=== PATIENT | female | born 1935 | race Caucasian/White ===

== ENCOUNTER 2020-05-03 14:15 | Outpatient (RCR) ==
[2020-05-07] MEDS ORDERED: AMLO1TAB24 PO (12:34)
[2020-05-07] MEDS ORDERED: CINA30TA4 PO (12:34)
[2020-05-07] MEDS ORDERED: COLA100C5 PO (12:34)
[2020-05-07] MEDS ORDERED: DULC10SU2 PR (12:34)
[2020-05-07] MEDS ORDERED: QUET1TAB7 PO (12:34)
[2020-05-07] MEDS ORDERED: LABE100T4 PO (12:34)
[2020-05-07] MEDS ORDERED: ENEMENE PR (12:34)
[2020-05-07] MEDS ORDERED: MILKSUS3 PO (12:34)
[2020-05-07] MEDS ORDERED: FAMO20TA PO (12:34)
[2020-05-07] MEDS ORDERED: FERR325T82 PO (12:34)
[2020-05-07] MEDS ORDERED: FOLI1TAB11 PO (12:34)
[2020-05-07] MEDS ORDERED: MAGN400T3 PO (12:34)
[2020-05-07] MEDS ORDERED: VITAD400CA PO (12:34)
[2020-05-07] MEDS ORDERED: APAP325T4 PO (12:34)
[2020-05-07] MEDS ORDERED: CYAN100050 PO (12:34)
== END 2020-05-13 ==
LOC: SKLAB3 14:15
PROVIDERS: ATTEND Internal Medicine
DX: Z20.828 Contact with and (suspected) exposure to other viral communicable diseases (principal)

== ENCOUNTER 2020-05-07 11:26 | Inpatient (IN) | payer MEDICARE, MEDICAID ==
[2020-05-07] MEDS ORDERED: NS 1,000 ML IV SCH (11:45)
[2020-05-07] MEDS ORDERED: FAMO20TA PO (12:34)
[2020-05-07] MEDS ORDERED: CINA30TA4 PO (12:34)
[2020-05-07] MEDS ORDERED: VITAD400CA PO (12:34)
[2020-05-07] MEDS ORDERED: QUET1TAB7 PO (12:34)
[2020-05-07] MEDS ORDERED: APAP325T4 PO (12:34)
[2020-05-07] MEDS ORDERED: ENEMENE PR (12:34)
[2020-05-07] MEDS ORDERED: FOLI1TAB11 PO (12:34)
[2020-05-07] MEDS ORDERED: LABE100T4 PO (12:34)
[2020-05-07] MEDS ORDERED: MAGN400T3 PO (12:34)
[2020-05-07] MEDS ORDERED: COLA100C5 PO (12:34)
[2020-05-07] MEDS ORDERED: MILKSUS3 PO (12:34)
[2020-05-07] MEDS ORDERED: FERR325T82 PO (12:34)
[2020-05-07] MEDS ORDERED: CYAN100050 PO (12:34)
[2020-05-07] MEDS ORDERED: DULC10SU2 PR (12:34)
[2020-05-07] MEDS ORDERED: AMLO1TAB24 PO (12:34)
[2020-05-07] MEDS ORDERED: MOM 30ML SUSPENSION UDC PO PRN (13:00)
[2020-05-07] MEDS ORDERED: BISACODYL 10 MG SUPP PR PRN (13:00)
[2020-05-07] MEDS ORDERED: DOCUSATE SODIUM 100MG CAPSULE PO PRN (13:00)
[2020-05-07] MEDS ORDERED: FLEET ENEMA PR PRN (13:00)
[2020-05-07 13:04] LABS: ALBUMIN 3.6 GM/DL (3.2-5.2); BILIRUBIN,DIRECT 0.2 MG/DL (0.0-0.2); BILIRUBIN,TOTAL 0.5 MG/DL (0.2-1.0); TOTAL PROTEIN 7.3 GM/DL (6.4-8.2)
--- NOTE | 2020-05-07 15:51 | HPEPDOC ---
General Date of Admission May 07, 2020 at 12:48 Date of Service: May 07, 2020 Attending Physician: KIM QUINONES MD Chief Complaint The patient is a 84-year-old female admitted with a reason for visit of Hypercalcemia. Source: RN/MD Exam Limitations: Dementia Timing/Duration: Getting worse Severity: Severe History of Present Illness 84 yo W with a recent admission at [facility] for symptomatic severe hy percalcemia with studies showing primary hyperparathyroidism that was managed with aggressive hydration, cinacalcet and per [facility] physician (Dr. Whitney, who met her once when she was admitted to the [facility] from the hospital), he presumes given her being elderly, demented and DNR/DNI, family had opted to not pursue surgical evaluation for parathyroidectomy. On discharge from [facility] her Ca had mildly improved from 15s to 11-12 and she was brought in today after routine labs showed Ca of 18.4 with ionized Ca of 9.8 and Cr 3.2. Unfortunately, we do not have much records of her prior health except a noted history of HTN, dementia and remote history of hystectomy, prior bowel resection and cholecystectomy. In the ED she was hemodynamically stable, pleasantly demented, without any pain complaints, alert to self. I attempted to contact her son on the listed number without success. Lab evaluation was notable for Ca 18.4, iCa 9.8, K 2.8, Cr 3.2, WBC 5.1, Hgb 10.8, platelets 160, Vit D25 of 48.2, PTH 1793.6. She was started on 200cc/hr normal saline and is now being admitted to medicine for hypercalcemia in the setting of a recent diagnosis of primary hyperparathyroidism. Of note, Dr. Whitney recently sent SPEPCUATEEP earlier today. Home Medications Scheduled Amlodipine Besylate (Amlodipine Besylate) 5 Mg Tablet, 5 MG PO BID, (Reported) Cinacalcet (Sensipar) 30 Mg Tablet, 30 MG PO DAILY, (Reported) Cyanocobalamin (Vitamin B-12) (Vitamin B-12) 1,000 Mcg Tablet, 1,000 MCG PO DAILY, (Reported) Famotidine (Famotidine) 20 Mg Tablet, 20 MG PO DAILY, (Reported) Ferrous Sulfate (Iron) 325 Mg Tablet, 325 MG PO DAILY, (Reported) Folic Acid (Folic Acid) 1 Mg Tablet, 1 MG PO DAILY, (Reported) Labetalol HCl (Labetalol HCl) 100 Mg Tablet, 100 MG PO Q12H, (Reported) Magnesium Oxide (Magnesium Oxide) 400 Mg Tablet, 400 MG PO BID, (Reported) Quetiapine Fumarate (Quetiapine Fumarate) 25 Mg Tablet, 25 MG PO QHS, (Reported) Vitamin D (Vitamin D3) 10 Mcg Tablet, 600 UNITS PO DAILY, (Reported) Scheduled PRN Acetaminophen (Acetaminophen) 325 Mg Tablet, 650 MG PO Q4H PRN for PAIN, (Reported) Bisacodyl (Dulcolax) 10 Mg Supp.rect, 10 MG FL DAILY PRN for CONSTIPATION, (Reported) Docusate Sodium (Colace) 100 Mg Capsule, 200 MG PO QHS PRN for CONSTIPATION, (Reported) Magnesium Hydroxide (Milk of Magnesia) 400 Mg/5 Ml Oral.susp, 10 ML PO DAILY PRN for CONSTIPATION, (Reported) Sodium Phosphate,[place]-Dibasic (Enema) 133 Ml Enema, 1 ANNA FL DAILY PRN for CONSTIPATION, (Reported) Allergies Coded Allergies: No Known Drug Allergies (Verified Allergy, Unknown, 05/07/20) Past Medical History Medical History HTN Dementia Recent diagnosis of primary hyperparathyroidism Surgical History Cholecystectomy Bowel resection Hysterectomy Family History Unable to obtain due to dementia and could not reach family Social History * Smoker: Denies Recent Travel/Sick Contacts: Denies: Recent travel, Recent sick contacts Psychosocial History: Dementia Unable to obtain due to dementia and could not reach family. Recent resident of [facility]. A-FIB/CHADSVASC A-FIB History Current/History of A-Fib/PAF?: No Current PO Anticoag Therapy: No Age/Risk Factor Scoring CHADSVASC: CHADSVASC Response (Comments) Value Age Risk Factor Age >/= 75 years old 2 Gender Risk Factor Female 1 Hx of CHF No 0 Hx of HTN Yes 1 Hx of Stroke/TIA/or VTE No 0 Hx of Diabetes No 0 Hx of Vascular Disease No 0 Total 4 Treatment Treatment ordered: NONE Reason Anticoagulant not given: Not indicated/[id number] Review of Systems Constitutional: Denies: Fever (none noted by staff) Pulmonary: Denies: Dyspnea Gastrointestinal: Denies: Vomiting, Abdominal Pain, Diarrhea Genitourinary: Denies: Hematuria Endocrine: Reports: Other Endocrine Sx (unable to obtain history due to dementia) Physical Examination General Exam: Positive: Alert (oriented to self), No Acute Distress Eye Exam: Positive: PERRLA, Conjunctiva & lids normal, EOMI; Negative: Sclera icteric ENT Exam: Negative: Mucous membr. moist/pink (dry MM) Neck Exam: Negative: JVD Chest Exam: Positive: Clear to auscultation Heart Exam: Positive: Rate Normal, Regular Rhythm, Normal S1, Normal S2; Negative: Gallops, Murmurs, Rubs Telemetry: Positive: Sinus Abdomen Exam: Positive: Normal bowel sounds, Soft; Negative: Tenderness Extremity Exam: Positive: Normal pulses; Negative: Cyanosis, Edema, Tenderness, Swelling Skin Exam: Positive: Nl turgor and temperature; Negative: Breakdown, Lesion Neuro Exam: Positive: Normal Speech, Strength at 5/5 X4 ext, Cranial Nerves 3- 12 NL Psych Exam: Negative: Oriented x 3 (oriented to self) Vital Signs Vital Signs Date Time Temp Pulse Resp B/P (MAP) Pulse Ox O2 Delivery O2 Flow Rate FiO2 05/07/20 12:41 62 97 05/07/20 12:30 132/63 (86) 05/07/20 11:35 96.9 16 Room Air Laboratory Data Labs 24H Laboratory Tests 2 05/07/20 11:48: Total Bilirubin 0.5, Direct Bilirubin 0.2, Aspartate Amino Transf (AST/SGOT) 20, Alanine Aminotransferase (ALT/SGPT) 25, Alkaline Phosphatase 101, Total Protein 7.3, Albumin 3.6, Albumin/Globulin Ratio 1.0L 05/07/20 12:09: POC Glucose (Misc Panel) 122H, POC Sodium (Misc Panel) 145, POC Potassium (Misc Panel) 2.8*L, POC Chloride (Misc Panel) 107, POC Total CO2 (Misc Panel) 33.0H, POC Blood Urea Nitrogen (Misc Panel 77H, POC Ionized Calcium (Misc Panel) 9.8H, POC Creatinine (Misc Panel) 3.2H, POC Hematocrit (Misc Panel) 30.0L 05/07/20 13:22: Coronavirus (COVID-19)(PCR) NEGATIVE Assessment/Plan 84 yo woman with a recent diagnosis of primary hyperparathyroidism, DNR/DNI and poor surgical candidate with presumed family decision to defer surgical management who returns to the hospital with severe hypercalcemia. Severe hypercalcemia i/s/o known recent diagnosis of primary hyperparathyroidectomy with GOC choice for non surgical management -Aggressive hydration, continue 200cc/hr NS -strict I/Os, may have to give diuretics as well for robust output -increase cinacalcet to 30 BID from QD -telemetry -daily ionized calcium -f/u SPEP, unlikely 2/2 myeloma given impressively elevated PTH -continue Vit D repletion Hypokalemia: -replete K, daily BMP Hypermagnesemia: -discontinue Mag Ox HTN: -continue home novarsc 5mg QD and labetalol 100mg BID Anemia: -continue home Vit B12, ferrous sulfate Dementia: -continue home seroquel LUISANA likely 2/2 dehydration and hyperCa -Aggressive hydration -monitor daily BMP -defer imaging for now DVT ppx: heparin BID Dispo: PCU for close monitoring, with telemetry. Need to speak with family/HCP, will work with PFS to establish reliable contact. Plan / VTE VTE Prophylaxis Ordered?: Yes KIM QUINONES MD May 07, 2020 15:51
[2020-05-07 16:00] VITALS: BP 159/70
[2020-05-07] MEDS ORDERED: PILL CUTTER 1 EACH XX PRN (16:00)
[2020-05-07] MEDS: NS 1,000 ML IV SCH ×3 (16:23→23:45)
[2020-05-07] MEDS: KCL 10MEQ/100ML SWI (KRUN) 10 MEQ in IV 1 EA IV SCH ×5 (16:23→23:48)
[2020-05-07 20:00] VITALS: BP 162/70
[2020-05-07] MEDS ORDERED: MAGNESIUM OXIDE 400 MG TAB (MAG-OX) PO SCH (21:00)
[2020-05-07] MEDS: HEPARIN SOD (PORCINE) 5000UNITS/ML 1ML VIAL/SYRINGE SC SCH (21:01)
[2020-05-07] MEDS: LABETALOL 100 MG TAB PO SCH (21:03)
[2020-05-07] MEDS: QUEtiapine FUMARATE 25 MG TAB PO SCH (21:03)
[2020-05-07] MEDS: amLODIPine 5 MG TAB PO SCH (21:03)
[2020-05-07] MEDS: CINACALCET 30 MG TAB (SENSIPAR) PO SCH (21:05)
--- NOTE | 2020-05-07 22:02 | ECGEPIP ---
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
[2020-05-07] MEDS ORDERED: KCL 10MEQ/100ML SWI (KRUN) 10 MEQ in IV 1 EA IV SCH (23:59)
[2020-05-08] VITALS: BP 149/65
[2020-05-08 04:00] VITALS: BP 164/74
[2020-05-08] MEDS: NS 1,000 ML IV SCH (05:34)
[2020-05-08 06:29] LABS: HEMATOCRIT 32.6 % (36.0-47.0); HEMOGLOBIN 10.7 g/dl (12.0-15.5); MEAN CORPUSCULAR HEMOGLOBIN 31.9 pg (27.0-33.0); MEAN CORPUSCULAR HGB CONC 32.8 g/dl (32.0-36.5); MEAN CORPUSCULAR VOLUME 97.3 fl (80.0-96.0); PLATELET COUNT, AUTOMATED 115 10^3/uL (150-450); RED BLOOD COUNT 3.35 10^6/uL (4.00-5.40); WHITE BLOOD COUNT 2.8 10^3/uL (4.0-10.0)
[2020-05-08 06:48] LABS: CALCIUM LEVEL 16.1 MG/DL (8.8-10.2); CREATININE FOR GFR 2.16 MG/DL (0.55-1.30); GLOMERULAR FILTRATION RATE 23.1 (>32); MAGNESIUM LEVEL 2.5 MG/DL (1.8-2.4); POTASSIUM SERUM 2.9 MEQ/L (3.5-5.1)
[2020-05-08] MEDS ORDERED: POTASSIUM CHLORIDE 10 MEQ SR TABLET PO ONE (07:00)
[2020-05-08 07:52] VITALS: BP 146/69
[2020-05-08] MEDS: KCL 10MEQ/100ML SWI (KRUN) 10 MEQ in IV 1 EA IV SCH ×3 (08:14→11:20)
[2020-05-08] MEDS ORDERED: CINACALCET 30 MG TAB (SENSIPAR) PO SCH (09:00)
[2020-05-08] MEDS: FERROUS SULFATE 325MG TAB PO SCH ×2 (09:00→10:04)
[2020-05-08] MEDS ORDERED: VITAMIN D (CHOLECALCIFEROL) 400 INTERNATIONAL UNITS TAB PO SCH (09:00)
[2020-05-08] MEDS: FOLIC ACID 1 MG TAB PO SCH (10:03)
[2020-05-08] MEDS: FAMOTIDINE 20 MG TAB PO SCH (10:04)
[2020-05-08] MEDS: LABETALOL 100 MG TAB PO SCH ×2 (10:04→20:39)
[2020-05-08] MEDS: CYANOCOBALAMIN 500 MCG TAB PO SCH (10:04)
[2020-05-08] MEDS: HEPARIN SOD (PORCINE) 5000UNITS/ML 1ML VIAL/SYRINGE SC SCH ×2 (10:05→20:41)
[2020-05-08] MEDS: amLODIPine 5 MG TAB PO SCH ×2 (10:12→20:40)
[2020-05-08] MEDS: CINACALCET 30 MG TAB (SENSIPAR) PO SCH ×2 (10:12→20:42)
[2020-05-08] MEDS: KCL 20MEQ IN 0.45NS 1000ML 1,000 ML IV SCH ×3 (10:13→23:13)
[2020-05-08 10:39] LABS: PERCENT SATURATION 24.1 % (13.2-45.0)
[2020-05-08 12:00] VITALS: BP 135/60
[2020-05-08 16:00] VITALS: BP 161/71
[2020-05-08] MEDS ORDERED: DENOSUMAB 60MG/1ML SYRINGE (PROLIA) (J0897 PER 1MG) SC ONE (16:00)
--- NOTE | 2020-05-08 18:42 | IPNPDOC ---
Text Note Date of Service The patient was seen on 05/08/20. NOTE Subjective: -No complaints at night, remains pleasantly demented, sparsely answers some questions. -Denies any pain at this time Objective Physical Examination General: NAD, oriented to self Eye: PERRLA, Conjunctiva & lids normal, EOMI, anicteric ENT: dry MM Neck: no JVD, no palpable adenopathy Chest: Clear to auscultation, scattered bibasilar crackles Heart: Rate Normal, Regular Rhythm, Normal S1, Normal S2, no m/r/g Telemetry: Sinus rhythm Abdomen: Normal bowel sounds, soft, NTND Extremities: Normal pulses, no edema, swelling or pain Skin: Nl turgor and temperature, no noted breakdown Neuro: Normal Speech, 5/5 strength X 4 ext, Cranial Nerves 3-12 NL Psych: oriented only to self, pleasantly demented Labs: iCa now 8.7 Ca 16.1 Na 154 K 2.9 Cr down to 2.16 WBC 2.8 Hgb 10.7 platelets 115 Assessment: 84 yo woman with a recent diagnosis of primary hyperparathyroidism, DNR/DNI and poor surgical candidate with presumed family decision to defer surgical management who returns to the hospital with severe hypercalcemia. Severe hypercalcemia i/s/o known recent diagnosis of primary hyperparathyroidectomy with GOC choice for non surgical management -Aggressive hydration, switch fluids to 1/2NS with 20meq KCl at 150cc/hr -strict I/Os -Continue cinacalcet at 30 BID -telemetry -daily ionized calcium -f/u SPEP, unlikely 2/2 myeloma given impressively elevated PTH -continue Vit D repletion -per my discussion with pharmacy, we decided to give some calcitonin Q12 for 48H and given 1 dose of denosumab as well. -Spoke with family, would like the option to discuss definitive treatment if possible. For now, will attempt to correct the hyperCa and electrolyte abnorm alities and monitor clinical improvement that may justify discussions about the possibility of surgical definitive treatment. Pancytopenia: not enough data available to decipher chronicity -Peripheral smear -retic count, ferritin, TIBC, LDH -check EBV, CMV, BCx -will aggressively try to reach family to discuss GOC before potential involvement of hematology for more investigation etc -covid-19 negative Hypokalemia: -replete K, daily BMP -added K to fluids Hypermagnesemia: resolved -discontinued Mag Ox HTN: -continue home novarsc 5mg QD and labetalol 100mg BID Anemia: -continue home Vit B12, ferrous sulfate Dementia: -continue home seroquel LUISANA likely 2/2 dehydration and hyperCa: improving -Aggressive hydration -monitor daily BMP -defer imaging for now -strict I/Os DVT ppx: heparin BID Dispo: PCU for close monitoring, with telemetry. Spoke with family, would like the option to discuss definitive treatment if possible. VS,Fishbone, I+O VS, Fishbone, I+O Laboratory Tests 05/08/20 05:38 Vital Signs Date Time Temp Pulse Resp B/P (MAP) Pulse Ox O2 Delivery O2 Flow Rate FiO2 05/08/20 07:52 98.1 73 18 146/69 (94) 96 Room Air I&O- Last 24 Hours up to 6 AM 05/08/20 06:00 Intake Total 3300 ml Output Total 1170 ml Balance 2130 ml KIM QUINONES MD May 08, 2020 09:08
[2020-05-08 20:00] VITALS: BP 141/67
[2020-05-08] MEDS: QUEtiapine FUMARATE 25 MG TAB PO SCH (20:40)
[2020-05-08] MEDS: CALCITONIN SALMON (MIACALCIN) 400INTERNATIONAL UNITS/2ML INJ (J0630) SQ SCH (20:41)
[2020-05-09] VITALS: BP 153/72
[2020-05-09 04:00] VITALS: BP 149/69
[2020-05-09] MEDS: KCL 20MEQ IN 0.45NS 1000ML 1,000 ML IV SCH ×4 (05:18→23:11)
[2020-05-09 05:21] LABS: CALCIUM LEVEL 14.9 MG/DL (8.8-10.2); CREATININE FOR GFR 1.8 MG/DL (0.55-1.30); GLOMERULAR FILTRATION RATE 28.5 (>32); MAGNESIUM LEVEL 1.9 MG/DL (1.8-2.4); POTASSIUM SERUM 3.2 MEQ/L (3.5-5.1)
[2020-05-09 05:29] LABS: HEMATOCRIT 30.1 % (36.0-47.0); HEMOGLOBIN 9.5 g/dl (12.0-15.5); MEAN CORPUSCULAR HEMOGLOBIN 30.5 pg (27.0-33.0); MEAN CORPUSCULAR HGB CONC 31.6 g/dl (32.0-36.5); MEAN CORPUSCULAR VOLUME 96.8 fl (80.0-96.0); PLATELET COUNT, AUTOMATED 126 10^3/uL (150-450); RED BLOOD COUNT 3.11 10^6/uL (4.00-5.40); WHITE BLOOD COUNT 2.8 10^3/uL (4.0-10.0)
[2020-05-09 08:00] VITALS: BP 156/70
[2020-05-09] MEDS: CALCITONIN SALMON (MIACALCIN) 400INTERNATIONAL UNITS/2ML INJ (J0630) SQ SCH ×2 (08:49→20:57)
[2020-05-09] MEDS: FOLIC ACID 1 MG TAB PO SCH (08:50)
[2020-05-09] MEDS: HEPARIN SOD (PORCINE) 5000UNITS/ML 1ML VIAL/SYRINGE SC SCH ×2 (08:50→20:57)
[2020-05-09] MEDS: CYANOCOBALAMIN 500 MCG TAB PO SCH (08:51)
[2020-05-09] MEDS: amLODIPine 5 MG TAB PO SCH ×2 (08:51→20:59)
[2020-05-09] MEDS: FAMOTIDINE 20 MG TAB PO SCH (08:51)
[2020-05-09] MEDS: CINACALCET 30 MG TAB (SENSIPAR) PO SCH ×2 (08:51→20:58)
[2020-05-09] MEDS: LABETALOL 100 MG TAB PO SCH ×2 (08:54→20:58)
[2020-05-09] MEDS: FERROUS SULFATE 325MG TAB PO SCH (08:54)
--- NOTE | 2020-05-09 11:28 | IPNPDOC ---
Text Note Date of Service The patient was seen on 05/09/20. NOTE Subjective: -No complaints at night, remains pleasantly demented -Denies any pain at this time -Sitting up in bed -I updated her family yesterday Objective Physical Examination General: NAD, oriented to self Eye: PERRLA, Conjunctiva & lids normal, EOMI, anicteric ENT: dry MM Neck: no JVD, no palpable adenopathy Chest: Clear to auscultation, scattered bibasilar crackles Heart: Rate Normal, Regular Rhythm, Normal S1, Normal S2, no m/r/g Telemetry: Sinus rhythm Abdomen: Normal bowel sounds, soft, NTND Extremities: Normal pulses, no edema, swelling or pain Skin: Nl turgor and temperature, no noted breakdown Neuro: Normal Speech, 5/5 strength X 4 ext, Cranial Nerves 3-12 NL Psych: oriented only to self, pleasantly demented Labs: iCa now 8.9 Ca 14.9 Na 149 K 3.2 Cr down to 1.8 WBC 2.8 Hgb 9.5 platelets 126 Assessment: 84 yo woman with a recent diagnosis of primary hyperparathyroidism, DNR/DNI and poor surgical candidate with presumed family decision to defer surgical management who returns to the hospital with severe hypercalcemia. Severe hypercalcemia i/s/o known recent diagnosis of primary hyperparathyroidectomy with GOC choice for non surgical management -Continue aggressive hydration, switch fluids to 1/2NS with 20meq KCl at 150cc/hr -strict I/Os -Continue cinacalcet at 30 BID -telemetry -daily ionized calcium -f/u SPEP, unlikely 2/2 myeloma given impressively elevated PTH -dc Vit D repletion -Day of calcitonin Q12 for 48H and given 1 dose of denosumab yesterday -Spoke with family, would like the option to discuss definitive treatment if possible. For now, will attempt to correct the hyperCa and electrolyte abnormalities and monitor clinical improvement that may justify discussions about the possibility of surgical definitive treatment. Pancytopenia: not enough data available to decipher chronicity -Peripheral smear -Ferritin 264, AOCI -f/u EBV, BCx -covid-19 negative Hypokalemia: -replete K, daily BMP -added K to fluids Hypermagnesemia: resolved -discontinued Mag Ox HTN: -continue home novarsc 5mg QD and labetalol 100mg BID Anemia: -continue home Vit B12, ferrous sulfate Dementia: -continue home seroquel LUISANA likely 2/2 dehydration and hyperCa: improving -continue aggressive hydration -monitor daily BMP -defer imaging for now -strict I/Os DVT ppx: heparin BID Dispo: PCU for close monitoring, with telemetry. Spoke with family, would like the option to discuss definitive treatment if possible. VS,Fishbone, I+O VS, Fishbone, I+O Laboratory Tests 05/09/20 04:48 Vital Signs Date Time Temp Pulse Resp B/P (MAP) Pulse Ox O2 Delivery O2 Flow Rate FiO2 05/09/20 08:54 69 156/70 05/09/20 08:00 97.5 20 95 Room Air I&O- Last 24 Hours up to 6 AM 05/09/20 06:00 Intake Total 3400 ml Output Total 3825 ml Balance -425 ml KIM QUINONES MD May 09, 2020 11:28
[2020-05-09] MEDS: KCL 10MEQ/100ML SWI (KRUN) 10 MEQ in IV 1 EA IV SCH ×4 (11:46→15:22)
[2020-05-09 12:00] VITALS: BP 152/70
[2020-05-09 16:00] VITALS: BP 139/67
[2020-05-09 20:00] VITALS: BP 138/65
[2020-05-09] MEDS: QUEtiapine FUMARATE 25 MG TAB PO SCH (20:59)
[2020-05-10] VITALS: BP 144/73
[2020-05-10 04:00] VITALS: BP 147/79
[2020-05-10] MEDS: KCL 20MEQ IN 0.45NS 1000ML 1,000 ML IV SCH (05:52)
[2020-05-10 05:57] LABS: HEMATOCRIT 30.7 % (36.0-47.0); HEMOGLOBIN 9.8 g/dl (12.0-15.5); MEAN CORPUSCULAR HEMOGLOBIN 30.5 pg (27.0-33.0); MEAN CORPUSCULAR HGB CONC 31.9 g/dl (32.0-36.5); MEAN CORPUSCULAR VOLUME 95.6 fl (80.0-96.0); PLATELET COUNT, AUTOMATED 138 10^3/uL (150-450); RED BLOOD COUNT 3.21 10^6/uL (4.00-5.40); WHITE BLOOD COUNT 3.6 10^3/uL (4.0-10.0)
[2020-05-10 06:53] LABS: CALCIUM LEVEL 13.9 MG/DL (8.8-10.2); CREATININE FOR GFR 1.71 MG/DL (0.55-1.30); GLOMERULAR FILTRATION RATE 30.3 (>32); MAGNESIUM LEVEL 1.6 MG/DL (1.8-2.4)
[2020-05-10 08:00] VITALS: BP 158/80
[2020-05-10] MEDS ORDERED: MAG SULF 1GM/100ML (MAG RUN) 1 GM in IV 1 EA IV ONE (08:15)
[2020-05-10] MEDS: FOLIC ACID 1 MG TAB PO SCH (08:56)
[2020-05-10] MEDS: CINACALCET 30 MG TAB (SENSIPAR) PO SCH ×2 (08:56→22:06)
[2020-05-10] MEDS: CYANOCOBALAMIN 500 MCG TAB PO SCH (08:56)
[2020-05-10] MEDS: amLODIPine 5 MG TAB PO SCH ×2 (08:56→21:00)
[2020-05-10] MEDS: LABETALOL 100 MG TAB PO SCH ×2 (08:56→21:00)
[2020-05-10] MEDS: FAMOTIDINE 20 MG TAB PO SCH (08:56)
[2020-05-10] MEDS: FERROUS SULFATE 325MG TAB PO SCH (08:57)
[2020-05-10] MEDS: HEPARIN SOD (PORCINE) 5000UNITS/ML 1ML VIAL/SYRINGE SC SCH ×2 (09:00→22:07)
[2020-05-10] MEDS: CALCITONIN SALMON (MIACALCIN) 400INTERNATIONAL UNITS/2ML INJ (J0630) SQ SCH (09:00)
[2020-05-10 12:00] VITALS: BP 159/77
--- NOTE | 2020-05-10 13:30 | IPNPDOC ---
Text Note Date of Service The patient was seen on 05/10/20. NOTE Subjective: -No acute complaints -Sitting up in bed Objective: Physical Examination General: NAD, oriented to self Eye: PERRLA, Conjunctiva & lids normal, EOMI, anicteric ENT: dry MM Neck: no JVD, no palpable adenopathy Chest: Clear to auscultation, scattered bibasilar crackles Heart: Rate Normal, Regular Rhythm, Normal S1, Normal S2, no m/r/g Telemetry: Sinus rhythm Abdomen: Normal bowel sounds, soft, NTND Extremities: Normal pulses, no edema, swelling or pain Skin: Nl turgor and temperature, no noted breakdown Neuro: Normal Speech, 5/5 strength X 4 ext, Cranial Nerves 3-12 NL Psych: oriented only to self, pleasantly demented Labs: iCa now 7.7 Ca 13.9 Na 145 K 4 Cr down to 1.6 WBC 3.6 Hgb 9.8 platelets 138 Assessment: 84 yo woman with a recent diagnosis of primary hyperparathyroidism, DNR/DNI and poor surgical candidate with presumed family decision to defer surgical management who returns to the hospital with severe hypercalcemia. Severe hypercalcemia i/s/o known recent diagnosis of primary hyperparathyroidectomy with GOC choice for non surgical management -Continue aggressive hydration, switch fluids to 1/2NS with 20meq KCl at 150cc/hr -strict I/Os -Continue cinacalcet at 30 BID -telemetry -daily ionized calcium -f/u SPEP, unlikely 2/2 myeloma given impressively elevated PTH -dc Vit D repletion -Day 2 of calcitonin Q12 for 48Hm, ending today 05/10, and given 1 dose of denosumab on 05/08 -Spoke with family, would like the option to discuss definitive treatment if possible. For now, will attempt to correct the hyperCa and electrolyte abnormali ties and monitor clinical improvement that may justify discussions about the possibility of surgical definitive treatment. Pancytopenia: not enough data available to decipher chronicity -Peripheral smear -Ferritin 264, AOCI -f/u EBV, BCx -covid-19 negative Hypokalemia: -replete K, daily BMP -added K to fluids Hypomagnesemia: -replete with 2g Mag sulfate HTN: -continue home novarsc 5mg QD and labetalol 100mg BID Anemia: -continue home Vit B12, ferrous sulfate Dementia: -continue home seroquel LUISANA likely 2/2 dehydration and hyperCa: improving -continue aggressive hydration -monitor daily BMP -defer imaging for now -strict I/Os DVT ppx: heparin BID Dispo: PCU for close monitoring, with telemetry. Spoke with family, would like the option to discuss definitive treatment if possible. VS,Fishbone, I+O VS, Fishbone, I+O Laboratory Tests 05/10/20 05:39 Vital Signs Date Time Temp Pulse Resp B/P (MAP) Pulse Ox O2 Delivery O2 Flow Rate FiO2 05/10/20 04:00 98.3 79 17 147/79 (101) 94 Room Air I&O- Last 24 Hours up to 6 AM 05/10/20 06:00 Intake Total 2050 ml Output Total 3025 ml Balance -975 ml KIM QUINONES MD May 10, 2020 08:04
[2020-05-10] MEDS: KCL 20MEQ IN D5/0.45NS 1000ML 1,000 ML IV SCH ×2 (14:00→22:03)
[2020-05-10 16:00] VITALS: BP 128/71
[2020-05-10 20:00] VITALS: BP 150/60
[2020-05-10] MEDS: QUEtiapine FUMARATE 25 MG TAB PO SCH (21:00)
[2020-05-11] VITALS: BP 157/74
[2020-05-11 04:00] VITALS: BP 167/79
[2020-05-11] MEDS: KCL 20MEQ IN D5/0.45NS 1000ML 1,000 ML IV SCH ×3 (04:52→18:43)
[2020-05-11 05:20] LABS: HEMATOCRIT 27.9 % (36.0-47.0); HEMOGLOBIN 9.1 g/dl (12.0-15.5); MEAN CORPUSCULAR HEMOGLOBIN 30.6 pg (27.0-33.0); MEAN CORPUSCULAR HGB CONC 32.6 g/dl (32.0-36.5); MEAN CORPUSCULAR VOLUME 93.9 fl (80.0-96.0); PLATELET COUNT, AUTOMATED 131 10^3/uL (150-450); RED BLOOD COUNT 2.97 10^6/uL (4.00-5.40); WHITE BLOOD COUNT 3.2 10^3/uL (4.0-10.0)
[2020-05-11 05:40] LABS: CALCIUM LEVEL 12.8 MG/DL (8.8-10.2); CREATININE FOR GFR 1.88 MG/DL (0.55-1.30); GLOMERULAR FILTRATION RATE 27.1 (>32); MAGNESIUM LEVEL 1.4 MG/DL (1.8-2.4); POTASSIUM SERUM 3.5 MEQ/L (3.5-5.1)
[2020-05-11 07:36] VITALS: BP 151/68
[2020-05-11] MEDS: FERROUS SULFATE 325MG TAB PO SCH (09:00)
[2020-05-11] MEDS: FOLIC ACID 1 MG TAB PO SCH (09:00)
[2020-05-11] MEDS: CYANOCOBALAMIN 500 MCG TAB PO SCH (09:00)
[2020-05-11] MEDS: HEPARIN SOD (PORCINE) 5000UNITS/ML 1ML VIAL/SYRINGE SC SCH ×2 (09:12→20:14)
[2020-05-11] MEDS: MAG SULF 1GM/100ML (MAG RUN) 1 GM in IV 1 EA IV SCH ×2 (09:13→10:20)
[2020-05-11] MEDS: FAMOTIDINE 20 MG TAB PO SCH (09:22)
[2020-05-11] MEDS: CINACALCET 30 MG TAB (SENSIPAR) PO SCH ×2 (09:22→20:12)
[2020-05-11] MEDS: LABETALOL 100 MG TAB PO SCH ×2 (09:23→20:13)
[2020-05-11] MEDS: amLODIPine 5 MG TAB PO SCH ×2 (09:23→20:13)
--- NOTE | 2020-05-11 14:01 | IPNPDOC ---
Text Note Date of Service The patient was seen on 05/11/20. NOTE Subjective: -No acute complaints -More interactive than prior, speaking full sentences and engaging in conversation this morning Objective: Physical Examination General: NAD, oriented to self Eye: PERRLA, Conjunctiva & lids normal, EOMI, anicteric ENT: dry MM Neck: no JVD, no palpable adenopathy Chest: Clear to auscultation, scattered bibasilar crackles Heart: Rate Normal, Regular Rhythm, Normal S1, Normal S2, no m/r/g Telemetry: Sinus rhythm Abdomen: Normal bowel sounds, soft, NTND Extremities: Normal pulses, no edema, swelling or pain Skin: Nl turgor and temperature, no noted breakdown Neuro: Normal Speech, 5/5 strength X 4 ext, Cranial Nerves 3-12 NL Psych: oriented only to self, pleasantly demented Labs: iCa now 7.1 Ca 12.8 Na 144 K 3.5 Cr 1.88 WBC 3.2 Hgb 9.1 platelets 131 Assessment: 84 yo woman with a recent diagnosis of primary hyperparathyroidism, DNR/DNI and poor surgical candidate with presumed family decision to defer surgical management who returns to the hospital with symptomatic severe hypercalcemia. Severe hypercalcemia i/s/o known recent diagnosis of primary hyperparathyroidectomy with GOC choice for non surgical management -Continue aggressive hydration, switch fluids to D51/2NS with 20meq KCl at 150cc/hr -strict I/Os -Continue cinacalcet at 30 BID -telemetry -daily ionized calcium -f/u SPEP, unlikely 2/2 myeloma given impressively elevated PTH -s/p 2d of calcitonin Q12 and 1 dose of denosumab on 05/08 -Spoke with family, would like the option to discuss definitive treatment if possible. For now, will attempt to correct the hyperCa and electrolyte abnormalities and monitor clinical improvement that may justify discussions ab out the possibility of surgical definitive treatment. Pancytopenia: not enough data available to decipher chronicity -Peripheral smear -Ferritin 264, AOCI -f/u EBV, BCx -covid-19 negative Hypokalemia: -replete K, daily BMP -added K to fluids Hypomagnesemia: -replete with 2g Mag sulfate and start 800mg MagOx tomorrow AM HTN: -continue home novarsc 5mg QD and labetalol 100mg BID Anemia: -continue home Vit B12, ferrous sulfate Dementia: -continue home seroquel LUISANA likely 2/2 dehydration and hyperCa: improving -continue aggressive hydration -monitor daily BMP -strict I/Os Dysphagia: -c/b inattention and no motivation to take PO -for now was cleared for pureed diet DVT ppx: heparin BID Dispo: Medsurg with telemetry. Spoke with family, would like the option to discuss definitive treatment if clinically improved. VS,Fishbone, I+O VS, Fishbone, I+O Laboratory Tests 05/11/20 05:01 Vital Signs Date Time Temp Pulse Resp B/P (MAP) Pulse Ox O2 Delivery O2 Flow Rate FiO2 05/11/20 07:36 98.2 79 18 151/68 (95) 97 Room Air I&O- Last 24 Hours up to 6 AM 05/11/20 06:00 Intake Total 1650 ml Output Total 1900 ml Balance -250 ml KIM QUINONES MD May 11, 2020 07:58
[2020-05-11 16:00] VITALS: BP 126/92
[2020-05-11 20:08] VITALS: BP 129/54
[2020-05-11] MEDS: QUEtiapine FUMARATE 25 MG TAB PO SCH (20:12)
[2020-05-11] MEDS: ACETAMINOPHEN TAB 650MG DOSE (2X325MG) PO PRN (20:12)
[2020-05-11 22:00] VITALS: BP 126/52
[2020-05-12] MEDS: KCL 20MEQ IN D5/0.45NS 1000ML 1,000 ML IV SCH ×4 (01:13→19:46)
[2020-05-12 05:47] LABS: HEMATOCRIT 27.4 % (36.0-47.0); MEAN CORPUSCULAR HEMOGLOBIN 30.8 pg (27.0-33.0); MEAN CORPUSCULAR HGB CONC 32.8 g/dl (32.0-36.5); MEAN CORPUSCULAR VOLUME 93.8 fl (80.0-96.0); PLATELET COUNT, AUTOMATED 110 10^3/uL (150-450); RED BLOOD COUNT 2.92 10^6/uL (4.00-5.40); WHITE BLOOD COUNT 2.7 10^3/uL (4.0-10.0)
[2020-05-12 06:00] VITALS: BP 137/60
[2020-05-12 06:01] LABS: CALCIUM LEVEL 12.4 MG/DL (8.8-10.2); CREATININE FOR GFR 1.82 MG/DL (0.55-1.30); GLOMERULAR FILTRATION RATE 28.2 (>32); MAGNESIUM LEVEL 1.6 MG/DL (1.8-2.4); POTASSIUM SERUM 3.2 MEQ/L (3.5-5.1)
[2020-05-12] MEDS: FAMOTIDINE 20 MG TAB PO SCH (08:05)
[2020-05-12] MEDS: CINACALCET 30 MG TAB (SENSIPAR) PO SCH ×2 (08:05→21:22)
[2020-05-12] MEDS: LABETALOL 100 MG TAB PO SCH ×2 (08:06→21:16)
[2020-05-12] MEDS: CYANOCOBALAMIN 500 MCG TAB PO SCH (08:06)
[2020-05-12] MEDS: FERROUS SULFATE 325MG TAB PO SCH (08:06)
[2020-05-12] MEDS: MAGNESIUM OXIDE 400 MG TAB (MAG-OX) PO SCH (08:06)
[2020-05-12] MEDS: HEPARIN SOD (PORCINE) 5000UNITS/ML 1ML VIAL/SYRINGE SC SCH ×2 (08:07→21:18)
[2020-05-12] MEDS: FOLIC ACID 1 MG TAB PO SCH (08:08)
[2020-05-12] MEDS: amLODIPine 5 MG TAB PO SCH ×2 (08:08→21:16)
[2020-05-12] MEDS: POTASSIUM CHLORIDE 10 MEQ SR TABLET PO SCH (08:56)
--- NOTE | 2020-05-12 10:25 | IPNPDOC ---
Text Note Date of Service The patient was seen on 05/12/20. NOTE Subjective: -No acute complaints -No complaints this morning. Poor appetite Objective: Physical Examination General: NAD, oriented to self Eye: PERRLA, Conjunctiva & lids normal, EOMI, anicteric ENT: dry MM Neck: no JVD, no palpable adenopathy Chest: Clear to auscultation, scattered bibasilar crackles Heart: Rate Normal, Regular Rhythm, Normal S1, Normal S2, no m/r/g Telemetry: Sinus rhythm Abdomen: Normal bowel sounds, soft, NTND Extremities: Normal pulses, no edema, swelling or pain Skin: Nl turgor and temperature, no noted breakdown Neuro: Normal Speech, 5/5 strength X 4 ext, Cranial Nerves 3-12 NL Psych: oriented only to self, pleasantly demented Labs: iCa now 6.8 Ca 12.4 Na 141 K 3.2 Cr 1.82 WBC 2.7 Hgb 9 platelets 110 Assessment: 84 yo woman with a recent diagnosis of primary hyperparathyroidism, DNR/DNI and poor surgical candidate with presumed family decision to defer surgical management who returns to the hospital with symptomatic severe hypercalcemia. Severe hypercalcemia i/s/o known recent diagnosis of primary hyperparathyroidectomy with GOC choice for non surgical management -Continue aggressive hydration, switch fluids to D51/2NS with 20meq KCl at 150cc/hr -strict I/Os -Continue cinacalcet at 30 BID -telemetry -daily ionized calcium -f/u SPEP, unlikely 2/2 myeloma given impressively elevated PTH -s/p 2d of calcitonin Q12 and 1 dose of denosumab on 05/08 -Spoke with family, would like the option to discuss definitive treatment if possible. For now, will attempt to correct the hyperCa and electrolyte abnormalities and monitor clinical improvement that may justify discussions about the possibility of surgical definitive treatment. Pancytopenia: not enough data available to decipher chronicity -Peripheral smear -Ferritin 264, AOCI -f/u EBV, BCx -covid-19 negative Hypokalemia: -replete K, daily BMP -added K to fluids Hypomagnesemia: -replete with 2g Mag sulfate and start 800mg MagOx tomorrow AM HTN: -continue home novarsc 5mg QD and labetalol 100mg BID Anemia: -continue home Vit B12, ferrous sulfate Dementia: -continue home seroquel LUISANA likely 2/2 dehydration and hyperCa: improving -continue aggressive hydration -monitor daily BMP -strict I/Os Dysphagia: -c/b inattention and no motivation to take PO -for now was cleared for pureed diet DVT ppx: heparin BID Dispo: Medsurg with telemetry. Spoke with family, would like the option to discuss definitive treatment if clinically improved. VS,Fishbone, I+O VS, Fishbone, I+O Laboratory Tests 05/12/20 05:23 05/12/20 05:24 Vital Signs Date Time Temp Pulse Resp B/P (MAP) Pulse Ox O2 Delivery O2 Flow Rate FiO2 05/12/20 08:08 66 134/63 05/12/20 06:00 97.6 18 94 05/11/20 16:00 Room Air l I&O- Last 24 Hours up to 6 AM 05/12/20 06:00 Intake Total 3460 ml Output Total 2550 ml Balance 910 ml KIM QUINONES MD May 12, 2020 08:25
[2020-05-12 20:00] VITALS: BP 133/66
[2020-05-12] MEDS: QUEtiapine FUMARATE 25 MG TAB PO SCH (21:16)
[2020-05-12] MEDS: ACETAMINOPHEN TAB 650MG DOSE (2X325MG) PO PRN (21:17)
[2020-05-12 22:00] VITALS: BP 133/55
[2020-05-13] MEDS: KCL 20MEQ IN D5/0.45NS 1000ML 1,000 ML IV SCH ×3 (02:51→18:30)
[2020-05-13 06:00] VITALS: BP 122/49
[2020-05-13] MEDS: FERROUS SULFATE 325MG TAB PO SCH (09:59)
[2020-05-13] MEDS: MAGNESIUM OXIDE 400 MG TAB (MAG-OX) PO SCH (09:59)
[2020-05-13] MEDS: HEPARIN SOD (PORCINE) 5000UNITS/ML 1ML VIAL/SYRINGE SC SCH ×2 (10:00→20:27)
[2020-05-13] MEDS: FOLIC ACID 1 MG TAB PO SCH (10:00)
[2020-05-13] MEDS: CYANOCOBALAMIN 500 MCG TAB PO SCH (10:00)
[2020-05-13] MEDS: FAMOTIDINE 20 MG TAB PO SCH (10:00)
[2020-05-13] MEDS: POTASSIUM CHLORIDE 10 MEQ SR TABLET PO SCH (10:00)
[2020-05-13] MEDS: CINACALCET 30 MG TAB (SENSIPAR) PO SCH ×2 (10:08→20:25)
[2020-05-13] MEDS: LABETALOL 100 MG TAB PO SCH ×2 (10:09→20:26)
[2020-05-13] MEDS: amLODIPine 5 MG TAB PO SCH ×2 (10:09→20:25)
--- NOTE | 2020-05-13 13:21 | IPNPDOC ---
Text Note Date of Service The patient was seen on 05/13/20. NOTE Subjective: -No acute complaints -No complaints this morning. -Now advanced to pureed diet Objective: Physical Examination General: NAD, oriented to self Eye: PERRLA, Conjunctiva & lids normal, EOMI, anicteric ENT: dry MM Neck: no JVD, no palpable adenopathy Chest: Clear to auscultation, bibasilar crackles, breathing comfortably on room air Heart: Rate Normal, Regular Rhythm, Normal S1, Normal S2, no m/r/g Telemetry: Sinus rhythm Abdomen: Normal bowel sounds, soft, NTND Extremities: Normal pulses, no edema, swelling or pain Skin: Nl turgor and temperature, no noted breakdown Neuro: Normal Speech, 5/5 strength X 4 ext, Cranial Nerves 3-12 NL Psych: oriented only to self, pleasantly demented Labs: reviewed, pending labs Assessment: 84 yo woman with a recent diagnosis of primary hyperparathyroidism who was admitted to the hospital with symptomatic severe hypercalcemia. Severe hypercalcemia i/s/o known recent diagnosis of primary hyperparathyroidectomy with GOC choice for non surgical management -Continue hydration, with fluids of D51/2NS with 20meq KCl at 75cc/hr -strict I/Os -Continue cinacalcet at 30 BID -telemetry -daily ionized calcium -f/u SPEP, unlikely 2/2 myeloma given impressively elevated PTH -s/p 2d of calcitonin Q12 and 1 dose of denosumab on 05/08 -Initially got the report that family wanted minimal interventions and then on speaking with family, they expressed that they would like the option to discuss definitive treatment if possible. My efforts thus far have been correct the hyperCa and electrolyte abnormalities and monitor clinical improvement that may justify discussions about the possibility of surgical definitive treatment at which point I would call a consult to endocrine vs. ENT. Pancytopenia: not enough data available to decipher chronicity -Peripheral smear -Ferritin 264, AOCI -f/u EBV, BCx -covid-19 negative Hypokalemia: -replete K, daily BMP -added K to fluids Hypomagnesemia: -Mag sulfate 800mg BID HTN: -continue home novarsc 5mg QD and labetalol 100mg BID Anemia: -continue home Vit B12, ferrous sulfate Dementia: -continue home seroquel LUISANA likely 2/2 dehydration and hyperCa: improving -continue aggressive hydration -monitor daily BMP -strict I/Os Dysphagia: -c/b inattention and no motivation to take PO -for now was cleared for pureed diet DVT ppx: heparin BID Dispo: Medsurg with telemetry. Spoke with family, would like the option to discuss definitive treatment if clinically improved. VS,Fishbone, I+O VS, Fishbone, I+O Vital Signs Date Time Temp Pulse Resp B/P (MAP) Pulse Ox O2 Delivery O2 Flow Rate FiO2 05/13/20 10:09 80 129/55 05/13/20 06:00 98.0 18 95 05/11/20 16:00 Room Air I&O- Last 24 Hours up to 6 AM 05/13/20 06:00 Intake Total 2160 ml Output Total 2350 ml Balance -190 ml KIM QUINONES MD May 13, 2020 13:21
[2020-05-13 14:00] VITALS: BP 120/63
[2020-05-13 14:25] LABS: HEMOGLOBIN 8.8 g/dl (12.0-15.5); MEAN CORPUSCULAR HEMOGLOBIN 30.9 pg (27.0-33.0); MEAN CORPUSCULAR HGB CONC 32.6 g/dl (32.0-36.5); MEAN CORPUSCULAR VOLUME 94.7 fl (80.0-96.0); RED BLOOD COUNT 2.85 10^6/uL (4.00-5.40); WHITE BLOOD COUNT 3.1 10^3/uL (4.0-10.0)
[2020-05-13 15:01] LABS: CALCIUM LEVEL 10.6 MG/DL (8.8-10.2); CREATININE FOR GFR 1.56 MG/DL (0.55-1.30); GLOMERULAR FILTRATION RATE 33.7 (>32); POTASSIUM SERUM 4.1 MEQ/L (3.5-5.1)
[2020-05-13] MEDS: QUEtiapine FUMARATE 25 MG TAB PO SCH (20:25)
[2020-05-13] MEDS: ACETAMINOPHEN TAB 650MG DOSE (2X325MG) PO PRN (20:26)
[2020-05-13 22:00] VITALS: BP 105/56
[2020-05-14 06:00] VITALS: BP 126/66
[2020-05-14 06:31] LABS: HEMATOCRIT 27.2 % (36.0-47.0); HEMOGLOBIN 9.1 g/dl (12.0-15.5); MEAN CORPUSCULAR HEMOGLOBIN 31.4 pg (27.0-33.0); MEAN CORPUSCULAR HGB CONC 33.5 g/dl (32.0-36.5); MEAN CORPUSCULAR VOLUME 93.8 fl (80.0-96.0); PLATELET COUNT, AUTOMATED 130 10^3/uL (150-450); WHITE BLOOD COUNT 2.8 10^3/uL (4.0-10.0)
[2020-05-14] MEDS: KCL 20MEQ IN D5/0.45NS 1000ML 1,000 ML IV SCH (06:54)
[2020-05-14 06:56] LABS: CALCIUM LEVEL 10.2 MG/DL (8.8-10.2); CREATININE FOR GFR 1.53 MG/DL (0.55-1.30); GLOMERULAR FILTRATION RATE 34.4 (>32); MAGNESIUM LEVEL 1.4 MG/DL (1.8-2.4); POTASSIUM SERUM 4.2 MEQ/L (3.5-5.1)
[2020-05-14] MEDS ORDERED: MAG SULF 1GM/100ML (MAG RUN) 1 GM in IV 1 EA IV ONE (08:45)
[2020-05-14] MEDS: amLODIPine 5 MG TAB PO SCH ×2 (09:00→20:39)
[2020-05-14] MEDS: LABETALOL 100 MG TAB PO SCH ×2 (09:00→20:40)
[2020-05-14] MEDS: FAMOTIDINE 20 MG TAB PO SCH (10:02)
[2020-05-14] MEDS: POTASSIUM CHLORIDE 10 MEQ SR TABLET PO SCH (10:04)
[2020-05-14] MEDS: FERROUS SULFATE 325MG TAB PO SCH (10:05)
[2020-05-14] MEDS: CYANOCOBALAMIN 500 MCG TAB PO SCH (10:05)
[2020-05-14] MEDS: MAGNESIUM OXIDE 400 MG TAB (MAG-OX) PO SCH ×2 (10:05→20:40)
[2020-05-14] MEDS: FOLIC ACID 1 MG TAB PO SCH (10:06)
[2020-05-14] MEDS: HEPARIN SOD (PORCINE) 5000UNITS/ML 1ML VIAL/SYRINGE SC SCH ×2 (10:06→20:43)
[2020-05-14] MEDS: CINACALCET 30 MG TAB (SENSIPAR) PO SCH ×2 (10:08→20:40)
[2020-05-14 14:00] VITALS: BP 110/56
--- NOTE | 2020-05-14 18:21 | IPNPDOC ---
Date Seen The patient was seen on 05/14/20. Progress Note SUBJECTIVE: No acute complaints, tolerating pureed diet well. Discussed case with Dr. Jaramillo (endocrinology) who said patient is not likely surgical candidate for parathyroidectomy and has responded to treatment well. Suggested encouraging PO intake, possibly more with lemon (acidifies urine) and overall medical/ conservative management. Magnesium low, incr to BID supplement. D/alcon IVFs, encouraging Po intake to prepare for discharge. Patient denies chest pain, shortness of breath, n/v/d. OBJECTIVE: PHYSICAL EXAM: VS: please see below General: NAD, pleasantly confused, oriented to self Eye: PERRLA, Conjunctiva & lids normal, EOMI, anicteric ENT: dry MM Neck: no JVD, no palpable adenopathy Chest: Clear to auscultation, bibasilar crackles, breathing comfortably on room air Heart: Rate Normal, Regular Rhythm, Normal S1, Normal S2, no m/r/g Telemetry: Sinus rhythm Abdomen: Normal bowel sounds, soft, NTND Extremities: Normal pulses, no edema, swelling or pain Skin: Nl turgor and temperature, no noted breakdown Neuro: Normal Speech, 5/5 strength X 4 ext, Cranial Nerves 3-12 NL Psych: oriented only to self, pleasantly demented LABORATORY: please see below ASSESSMENT : 84 yo woman with a recent diagnosis of primary hyperparathyroidism who was admitted to the hospital with symptomatic severe hypercalcemia. PLAN: #Severe hypercalcemia likely 2/2 to secondary, tertiary hyperparathyroidism. -Calcium decreasing with calcitonin, denosumab (05/08) -Per Dr. Jaramillo (endocrinology), patient not likely surgical candidate. Recommending continuing with current treatment of calcitonin BID, acidification of urine if possible with encouraging hydration and adding lemon (teas, water). She said that if calcium should increase again, can consider IV bisphosphonate pamidronate depending on kidney function. -Stopped IVFs and starting on Q2H fluid encouragement, hydrate as much as po ssible -C/w cinacalcet at 30 BID, daily calcium, electrolyte replacement. #Pancytopenia -Perpherial smear: pancytopenia without any features of atypia -Ferritin 264, AOCI -f/u EBV, BCx NG -covid-19 negative #Hypomagnesemia -Low at 1.4 -Given 1 mag run today, increased mag sulfate to 800mg BID # LUISANA likely 2/2 dehydration and hyperCa- improving slowly -encouraging fluid hydrating, eating -monitor daily BMP -strict I/Os #Dysphagia in setting of dementia -c/b inattention and no motivation to take PO -for now was cleared for pureed diet -Barium swallow not needed #HTN -C/w novarsc 5mg QD and labetalol 100mg BID #Anemia, chronic -C/w Vit B12, ferrous sulfate #Dementia -At baseline -C/w seroquel #DVT px -heparin Resolved issues: #Hypokalemia DISPOSITION: Plan is d/c back to prior living situation when medically improved. VS, I&O, 24H, Fishbone Vital Signs/I&O Vital Signs Date Time Temp Pulse Resp B/P (MAP) Pulse Ox O2 Delivery O2 Flow Rate FiO2 05/14/20 14:00 97.6 70 17 110/56 (74) 94 Room Air I&O- Last 24 Hours up to 6 AM 05/14/20 05:59 Intake Total 1695 ml Output Total 2300 ml Balance -605 ml Laboratory Data 24H LABS Laboratory Tests 2 05/14/20 06:11: Nucleated Red Blood Cells % (auto) 0.0, Anion Gap 2L, Glomerular Filtration Rate 34.4, Calcium Level 10.2, Whole Blood Ionized Calcium 5.7H, Magnesium Level 1.4L CBC/BMP Laboratory Tests 05/14/20 06:11 Microbiology Microbiology 05/08/20 Blood Culture - Final, Complete NO GROWTH AFTER 5 DAYS 05/08/20 Blood Culture - Final, Complete NO GROWTH AFTER 5 DAYS Current Medications Current Medications Medications (Trade) Dose Ordered Sig/Florian Route PRN Reason Start Time Stop Time Status Last Admin Dose Admin Acetaminophen (Tylenol Tab) 650 mg Q4H PRN PO PAIN 05/07/20 13:00 05/13/20 20:26 Amlodipine Besylate (Norvasc) 5 mg BID PO 05/07/20 21:00 05/13/20 20:25 Bisacodyl (Dulcolax Suppository) 10 mg DAILY PRN MS CONSTIPATION 05/07/20 13:00 Calcitonin [place] (Miacalcin) 160 interunits Q12H SQ 05/08/20 21:00 05/10/20 20:59 DC 05/10/20 09:00 Cinacalcet (Sensipar) 30 mg BID PO 05/07/20 21:00 05/14/20 10:08 Cinacalcet (Sensipar) 30 mg DAILY PO 05/08/20 09:00 05/07/20 14:58 DC Cyanocobalamin (Vitamin B12) 1,000 mcg QAM PO 05/08/20 09:00 05/14/20 10:05 Docusate Sodium (Colace) 200 mg QHS PRN PO CONSTIPATION 05/07/20 13:00 Famotidine (Pepcid) 20 mg DAILY PO 05/08/20 09:00 05/14/20 10:02 Ferrous Sulfate (Ferrous Sulfate) 325 mg DAILY PO 05/08/20 09:00 05/14/20 10:05 Folic Acid (Folic Acid) 1 mg DAILY PO 05/08/20 09:00 05/14/20 10:06 Heparin Sodium (Porcine) (Heparin) 5,000 units Q12H SC 05/07/20 21:00 05/14/20 10:06 Home Med (Med Rec Complete!) ASDIRECTED XX 05/07/20 12:45 05/07/20 12:38 DC Labetalol HCl (Normodyne, Trandate) 100 mg Q12H PO 05/07/20 21:00 05/13/20 20:26 Magnesium Hydroxide (Milk Of Magnesia) 10 ml DAILY PRN PO CONSTIPATION 05/07/20 13:00 Magnesium Oxide (Mag-Ox) 400 mg BID PO 05/07/20 21:00 05/07/20 14:37 DC Magnesium Oxide (Mag-Ox) 800 mg BID PO 05/14/20 09:00 05/14/20 10:05 Magnesium Oxide (Mag-Ox) 800 mg DAILY PO 05/12/20 09:00 05/14/20 08:41 DC 05/13/20 09:59 Magnesium Sulfate/ Dextrose 1 gm/IV Miscellaneous Supplies 100 ml @ 100 mls/hr Q1H IV 05/11/20 09:00 05/11/20 10:59 DC 05/11/20 10:20 Potassium Chloride 10 meq/ IV Miscellaneous Supplies 100 ml @ 100 mls/hr Q1H IV 05/07/20 15:00 05/07/20 19:59 DC 05/07/20 23:48 Potassium Chloride 10 meq/ IV Miscellaneous Supplies 100 ml @ 100 mls/hr Q1H IV 05/07/20 23:59 05/08/20 00:58 DC Potassium Chloride 10 meq/ IV Miscellaneous Supplies 100 ml @ 100 mls/hr Q1H IV 05/08/20 08:00 05/08/20 10:59 DC 05/08/20 11:20 Potassium Chloride 10 meq/ IV Miscellaneous Supplies 100 ml @ 100 mls/hr Q1H IV 05/09/20 12:00 05/09/20 15:59 DC 05/09/20 15:22 Potassium Chloride/Dextrose/ Sod Cl 1,000 ml @ 75 mls/hr [id number] IV 05/10/20 14:00 05/14/20 10:48 DC 05/14/20 06:54 Potassium Chloride/Sodium Chloride 1,000 ml @ 150 mls/hr Q6H40M IV 05/08/20 08:15 05/10/20 13:49 DC 05/10/20 05:52 Potassium Chloride (Micro-K Extencaps) 40 meq DAILY PO 05/12/20 09:00 05/14/20 10:04 Quetiapine Fumarate (SEROquel) 25 mg QHS PO 05/07/20 21:00 05/13/20 20:25 Sodium Biphosphate/ Sodium Phosphate (Fleet Enema) 1 ea DAILY PRN MS CONSTIPATION 05/07/20 13:00 Sodium Chloride 1,000 ml @ 200 mls/hr Q5H IV 05/07/20 11:45 05/07/20 13:40 DC 05/07/20 12:01 Sodium Chloride 1,000 ml @ 200 mls/hr Q5H IV 05/07/20 13:45 05/08/20 08:13 DC 05/08/20 05:34 Vitamin D (Vitamin D) 600 units DAILY PO 05/08/20 09:00 05/08/20 10:38 DC 05/08/20 10:12 Allergies Coded Allergies: No Known Drug Allergies (Verified Allergy, Unknown, 05/07/20) Sherie Ramirez MD May 14, 2020 18:20
[2020-05-14] MEDS: ACETAMINOPHEN TAB 650MG DOSE (2X325MG) PO PRN (20:39)
[2020-05-14] MEDS: QUEtiapine FUMARATE 25 MG TAB PO SCH (20:39)
[2020-05-14 21:15] VITALS: BP 125/71
[2020-05-15 06:00] VITALS: BP 116/72
[2020-05-15 07:35] LABS: HEMATOCRIT 27.5 % (36.0-47.0); HEMOGLOBIN 8.9 g/dl (12.0-15.5); MEAN CORPUSCULAR HEMOGLOBIN 30.8 pg (27.0-33.0); MEAN CORPUSCULAR HGB CONC 32.4 g/dl (32.0-36.5); MEAN CORPUSCULAR VOLUME 95.2 fl (80.0-96.0); PLATELET COUNT, AUTOMATED 163 10^3/uL (150-450); RED BLOOD COUNT 2.89 10^6/uL (4.00-5.40); WHITE BLOOD COUNT 3.5 10^3/uL (4.0-10.0)
[2020-05-15 07:58] LABS: CALCIUM LEVEL 9.7 MG/DL (8.8-10.2); CREATININE FOR GFR 1.69 MG/DL (0.55-1.30); GLOMERULAR FILTRATION RATE 30.7 (>32); POTASSIUM SERUM 4.3 MEQ/L (3.5-5.1)
[2020-05-15] MEDS: CINACALCET 30 MG TAB (SENSIPAR) PO SCH (09:41)
[2020-05-15] MEDS: FERROUS SULFATE 325MG TAB PO SCH (09:41)
[2020-05-15] MEDS: FOLIC ACID 1 MG TAB PO SCH (09:41)
[2020-05-15] MEDS: POTASSIUM CHLORIDE 10 MEQ SR TABLET PO SCH (09:41)
[2020-05-15] MEDS: HEPARIN SOD (PORCINE) 5000UNITS/ML 1ML VIAL/SYRINGE SC SCH (09:42)
[2020-05-15] MEDS: FAMOTIDINE 20 MG TAB PO SCH (09:42)
[2020-05-15] MEDS: CYANOCOBALAMIN 500 MCG TAB PO SCH (09:42)
[2020-05-15] MEDS: MAGNESIUM OXIDE 400 MG TAB (MAG-OX) PO SCH (09:42)
[2020-05-15 09:45] VITALS: BP 129/66
[2020-05-15] MEDS: amLODIPine 5 MG TAB PO SCH (09:45)
[2020-05-15] MEDS: LABETALOL 100 MG TAB PO SCH (09:45)
[2020-05-15] MEDS ORDERED: CINA30TA5 PO (12:58)
[2020-05-15] MEDS ORDERED: MAG400TA PO (12:58)
[2020-05-15] MEDS ORDERED: KLOR20TA42 PO (13:02)
--- NOTE | 2020-05-15 13:09 | DS.PDOC ---
Discharge Summary General Date of Admission May 07, 2020 at 12:48 Date of Discharge 05/15/20 Attending Physician: Sherie Ramirez MD Discharge Summary HPI: 84 yo W with a recent admission at [facility] for symptomatic severe hypercalcemia with studies showing primary hyperparathyroidism that was managed with aggressive hydration, cinacalcet and per [facility] physician (Dr. Whitney, who met her once when she was admitted to the [facility] from the hospital), he presumes given her being elderly, demented and DNR/DNI, family had opted to not pursue surgical evaluation for parathyroidectomy. On discharge from [place] her Ca had mildly improved from 15s to 11-12 and she was brought in today after routine labs showed Ca of 18.4 with ionized Ca of 9.8 and Cr 3.2. Unfortunately, we do not have much records of her prior health except a noted history of HTN, dementia and remote history of hystectomy, prior bowel resection and cholecystectomy. In the ED she was hemodynamically stable, pleasantly demented, without any pain complaints, alert to self. I attempted to contact her son on the listed number without success. Lab evaluation was notable for Ca 18.4, iCa 9.8, K 2.8, Cr 3.2, WBC 5.1, Hgb 10.8, platelets 160, Vit D25 of 48.2, PTH 1793.6. She was started on 200cc/hr normal saline and is now being admitted to medicine for hypercalcemia in the setting of a recent diagnosis of primary hyperparathyroidism. Of note, Dr. Whitney recently sent SPEP, UPEP earlier today. HOSPITAL COURSE: Patient was treated cinacalcet BID, denosumab (05/08). Electrolytes were replaced regularly with increasing magnesium supplementation, potassium. Calcium steadily decreased. She was evaluated by swallowing and speech teams who found her to do well with pureed diet, no additional testing was indicated. Discussed case with Dr. Jaramillo (endocrinology) who said patient is not likely surgical candidate for parathyroidectomy and has responded to treatment well. Suggested encouraging PO intake, possibly more with lemon (acidifies urine) and overall medical/ conservative management. She highly encouraged fluid intake, as much hydration as possible. Patient was at her baseline by 05/15/20. Her son was updated on current status and decision was made to discharge back to [facility]. At time of discharge patient denies chest pain, shortness of breath, n/v/d. It is recommended that she is referred to endocrinology as o/p to help manage hyperparathyroidism and close monitoring of calcium kept. Also would recommend continued monitoring of Cr as Cr is not at baseline. With increased encourage ment of fluids, food may improve. If does not then will need o/p nephrology consult. OBJECTIVE PMH/PSURGHX: HTN Dementia Recent diagnosis of primary hyperparathyroidism Surgical History Cholecystectomy Bowel resection Hysterectomy FHX: Unable to obtain due to dementia and could not reach family SOCIAL HX: Smoker: Denies Recent Travel/Sick Contacts: Denies: Recent travel, Recent sick contacts Psychosocial History: Dementia Unable to obtain due to dementia and could not reach family. Recent resident of [facility]. ALLERGIES: Please see below. DISCHARGE MEDICATIONS: Please see below. PHYSICAL EXAMINATION: VS: please see below General: NAD, pleasantly confused, oriented to self Eye: PERRLA, Conjunctiva & lids normal, EOMI, anicteric ENT: dry MM Neck: no JVD, no palpable adenopathy Chest: Clear to auscultation, bibasilar crackles, breathing comfortably on room air Heart: Rate Normal, Regular Rhythm, Normal S1, Normal S2, no m/r/g Telemetry: Sinus rhythm Abdomen: Normal bowel sounds, soft, NTND Extremities: Normal pulses, no edema, swelling or pain Skin: Nl turgor and temperature, no noted breakdown Neuro: Normal Speech, 5/5 strength X 4 ext, Cranial Nerves 3-12 NL Psych: oriented only to self, pleasantly demented LABORATORY: please see below ASSESSMENT : 84 yo woman with a recent diagnosis of hyperparathyroidism who was admitted to the hospital with symptomatic severe hypercalcemia 2/2 to uncontrolled secondary and tertiary hyperparathyroidism. PLAN: #Severe hypercalcemia likely 2/2 to secondary, tertiary hyperparathyroidism. -Calcium decreasing with calcitonin, denosumab (05/08) -Per Dr. Jaramillo (endocrinology), patient not likely surgical candidate. Recommending continuing with current treatment of calcitonin BID, acidification of urine if possible with encouraging hydration and adding lemon (teas, water). She said that if calcium should increase again, can consider IV bisphosphonate pamidronate depending on kidney function. -C/w Q2H fluid encouragement, hydrate as much as possible -C/w cinacalcet at 30 BID, daily calcium, electrolyte replacement. #Pancytopenia -Perpherial smear: pancytopenia without any features of atypia -Ferritin 264, AOCI -f/u EBV, BCx NG -covid-19 negative #Hypomagnesemia -wnl this AM -C/w with incr dose mag sulfate to 800mg BID # LUISANA likely 2/2 dehydration and hyperCa- improving slowly -encouraging fluid hydrating, eating -monitor daily BMP -strict I/Os #Dysphagia in setting of dementia -c/b inattention and no motivation to take PO -for now was cleared for pureed diet -Barium swallow not needed #HTN -C/w novarsc 5mg QD and labetalol 100mg BID #Anemia, chronic -C/w Vit B12, ferrous sulfate #Dementia -At baseline -C/w seroquel #DVT px -heparin Resolved issues: #Hypokalemia DISPOSITION: D/c back to [facility] today. Recommending close monitoring of Cr and Calcium as o/p. Recommend o/p referral for endocrinology, may require one for nephrology if Cr does not improve further. TIME SPENT ON DISCHARGE: Greater than 30 minutes. Vital Signs/I&Os Vital Signs Date Time Temp Pulse Resp B/P (MAP) Pulse Ox O2 Delivery O2 Flow Rate FiO2 05/15/20 09:45 67 129/66 05/15/20 06:00 97.0 16 95 Room Air I&O- Last 24 Hours up to 6 AM 05/15/20 06:00 Intake Total 180 ml Output Total 1400 ml Balance -1220 ml Laboratory Data Labs 24H Laboratory Tests 2 05/15/20 07:01: Nucleated Red Blood Cells % (auto) 0.0, Anion Gap 4L, Glomerular Filtration Rate 30.7L, Calcium Level 9.7, Whole Blood Ionized Calcium 5.5H, Magnesium Level 2.0 05/15/20 12:09: CBC/BMP Laboratory Tests 05/15/20 07:01 Microbiology Microbiology 05/08/20 Blood Culture - Final, Complete NO GROWTH AFTER 5 DAYS 05/08/20 Blood Culture - Final, Complete NO GROWTH AFTER 5 DAYS Discharge Medications Scheduled Amlodipine Besylate (Amlodipine Besylate) 5 Mg Tablet, 5 MG PO BID, (Reported) Cinacalcet HCl (Cinacalcet HCl) 30 Mg Tablet, 30 MG PO BID Cyanocobalamin (Vitamin B-12) (Vitamin B-12) 1,000 Mcg Tablet, 1,000 MCG PO DAILY, (Reported) Famotidine (Famotidine) 20 Mg Tablet, 20 MG PO DAILY, (Reported) Ferrous Sulfate (Iron) 325 Mg Tablet, 325 MG PO DAILY, (Reported) Folic Acid (Folic Acid) 1 Mg Tablet, 1 MG PO DAILY, (Reported) Labetalol HCl (Labetalol HCl) 100 Mg Tablet, 100 MG PO Q12H, (Reported) Magnesium Oxide (Magnesium Oxide) 400 Mg Tablet, 800 MG PO BID Potassium Chloride (Klor-Con M20) 20 Meq Tab.er.prt, 1 TAB PO DAILY Quetiapine Fumarate (Quetiapine Fumarate) 25 Mg Tablet, 25 MG PO QHS, (Reported) Vitamin D (Vitamin D3) 10 Mcg Tablet, 600 UNITS PO DAILY, (Reported) Scheduled PRN Acetaminophen (Acetaminophen) 325 Mg Tablet, 650 MG PO Q4H PRN for PAIN, (Reported) Bisacodyl (Dulcolax) 10 Mg Supp.rect, 10 MG ND DAILY PRN for CONSTIPATION, (Reported) Docusate Sodium (Colace) 100 Mg Capsule, 200 MG PO QHS PRN for CONSTIPATION, (Reported) Magnesium Hydroxide (Milk of Magnesia) 400 Mg/5 Ml Oral.susp, 10 ML PO DAILY PRN for CONSTIPATION, (Reported) Sodium Phosphate,[place]-Dibasic (Enema) 133 Ml Enema, 1 ANNA ND DAILY PRN for CONSTIPATION, (Reported) Allergies Coded Allergies: No Known Drug Allergies (Verified Allergy, Unknown, 05/07/20) Sherie Ramirez MD May 15, 2020 13:09
== END 2020-05-15 14:05 | DRG 644 ==
LOC: EDBD 11:26 → M ED 11:26 → M ED INP 12:48 → ENRESERV 14:34 → M PCU 15:54 → M MSPAV 05-11 15:44
PROVIDERS: ADMIT Internal Medicine; ATTEND Internal Medicine
DX: E21.3 Hyperparathyroidism, unspecified (principal); N17.9 Acute kidney failure, unspecified; D61.818 Other pancytopenia; I10 Essential (primary) hypertension; F03.90 Unspecified dementia, unspecified severity, without behavioral disturbance, psychotic disturbance, mood disturbance, and anxiety; E87.6 Hypokalemia; E86.0 Dehydration; Z66 Do not resuscitate; Z90.49 Acquired absence of other specified parts of digestive tract; Z79.899 Other long term (current) drug therapy; Z20.828 Contact with and (suspected) exposure to other viral communicable diseases

== ENCOUNTER → 2020-05-07 | Outpatient (REF) ==
[~2020-05-07] MED LIST: AMLO1TAB24 PO; APAP325T4 PO; CINA30TA4 PO; COLA100C5 PO; CYAN100050 PO; DULC10SU2 PR; ENEMENE PR; FAMO20TA PO; FERR325T82 PO; FOLI1TAB11 PO; LABE10TAB PO; MAGN400T3 PO; MILKSUS3 PO; QUET1TAB7 PO; VITAD400CA PO
[2020-05-07 10:02] LABS: TOTAL PROTEIN 7.2 GM/DL (6.4-8.2)
[2020-05-07 10:24] LABS: BLOOD UREA NITROGEN 80 MG/DL (7-18); CARBON DIOXIDE LEVEL 33 MEQ/L (21-32); CHLORIDE LEVEL 108 MEQ/L (98-107); CREATININE FOR GFR 2.81 MG/DL (0.55-1.30); FOLATE 20.5 NG/ML (>5.4); GLOMERULAR FILTRATION RATE 17.1 (>32); GLUCOSE, FASTING 91 MG/DL (70-100); IRON (FE) 78 UG/DL (50-170); MAGNESIUM LEVEL 3.3 MG/DL (1.8-2.4); POTASSIUM SERUM 2.8 MEQ/L (3.5-5.1); PTH INTACT 1793.6 PG/ML (18.5-88.0); SODIUM LEVEL 148 MEQ/L (136-145); TOTAL 25(OH) VITAMIN D 48.2 NG/ML (30.0-100.0); VITAMIN B12 LEVEL > 2000 PG/ML (247-911)
[2020-05-07 10:31] LABS: CALCIUM LEVEL 18.4 MG/DL (8.8-10.2)
--- NOTE | 2020-05-08 19:24 | ECGEPIP ---
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
[2020-05-10 14:10] LABS: ALBUMIN 3.79 GM/DL (3.29-5.55); ALBUMIN % 52.6 % (55.8-66.1); ALPHA-1-GLOBULIN % 6.4 % (2.9-4.9); ALPHA-1-GLOBULINS 0.46 GM/DL (0.17-0.41); ALPHA-2-GLOBULINS 1.14 GM/DL (0.42-0.99); ALPHA-2-GLOBULINS % 15.8 % (7.1-11.8); BETA-1-GLOBULINS 0.42 GM/DL (0.28-0.60); BETA-1-GLOBULINS % 5.8 % (4.7-7.2); BETA-2-GLOBULINS 0.41 GM/DL (0.19-0.55); BETA-2-GLOBULINS % 5.7 % (3.2-6.5); GAMMA GLOBULIN % 13.7 % (11.1-18.8); GAMMA GLOBULINS 0.99 GM/DL (0.65-1.58)
== END ==
LOC: SKLAB3 07:11
PROVIDERS: ATTEND Internal Medicine
DX: I45.9 Conduction disorder, unspecified (principal); E87.6 Hypokalemia; D64.9 Anemia, unspecified; E83.52 Hypercalcemia

== ENCOUNTER → 2020-05-21 | Outpatient (REF) | payer MEDICAID, MEDICARE ==
[~2020-05-21] MED LIST changes: +CALC1CAP31 PO; +CALC200T15 PO; +CINA30TA5 PO; +KLOR20TA42 PO; +LABE100T4 PO; -LABE10TAB PO; +MAGN400C2 PO; +MAGN400T35 PO; -QUET1TAB7 PO; +QUET25TA3 PO; +VITA500T40 PO
[2020-05-21 13:43] LABS: HEMATOCRIT 31.6 % (36.0-47.0); HEMOGLOBIN 10.1 g/dl (12.0-15.5); MEAN CORPUSCULAR HEMOGLOBIN 31.1 pg (27.0-33.0); MEAN CORPUSCULAR VOLUME 97.2 fl (80.0-96.0); PLATELET COUNT, AUTOMATED 222 10^3/uL (150-450); RED BLOOD COUNT 3.25 10^6/uL (4.00-5.40); WHITE BLOOD COUNT 7.1 10^3/uL (4.0-10.0)
[2020-05-21 14:13] LABS: CALCIUM LEVEL 8.6 MG/DL (8.8-10.2); CREATININE FOR GFR 1.66 MG/DL (0.55-1.30); GLOMERULAR FILTRATION RATE 31.3 (>32); POTASSIUM SERUM 3.8 MEQ/L (3.5-5.1)
== END ==
LOC: SKLAB3 07:22
PROVIDERS: ATTEND Internal Medicine
DX: K11.20 Sialoadenitis, unspecified (principal)

== ENCOUNTER → 2020-05-22 | Outpatient (REF) ==
[~2020-05-22] MED LIST changes: -CALC1CAP31 PO; -CALC200T15 PO; +MAG400TA PO; -MAGN400C2 PO; -MAGN400T35 PO; +QUET1TAB7 PO; -QUET25TA3 PO; -VITA500T40 PO
== END ==
LOC: SKLAB3 07:13
PROVIDERS: ATTEND Internal Medicine
DX: Z20.828 Contact with and (suspected) exposure to other viral communicable diseases (principal)

== ENCOUNTER → 2020-05-28 | Outpatient (REF) ==
[2020-05-28 10:32] LABS: ALBUMIN 2.5 GM/DL (3.2-5.2); CALCIUM LEVEL 7.3 MG/DL (8.8-10.2); CREATININE FOR GFR 1.23 MG/DL (0.55-1.30); GLOMERULAR FILTRATION RATE 44.3 (>32); PHOSPHORUS LEVEL 2.5 MG/DL (2.5-4.9); POTASSIUM SERUM 4.2 MEQ/L (3.5-5.1)
== END ==
LOC: SKLAB3 10:00
PROVIDERS: ATTEND Internal Medicine
DX: N17.9 Acute kidney failure, unspecified (principal)

== ENCOUNTER → 2020-05-29 | Outpatient (REF) ==
[2020-05-29 14:22] LABS: HEMATOCRIT 27.9 % (36.0-47.0); HEMOGLOBIN 8.7 g/dl (12.0-15.5); MEAN CORPUSCULAR HEMOGLOBIN 30.5 pg (27.0-33.0); MEAN CORPUSCULAR HGB CONC 31.2 g/dl (32.0-36.5); MEAN CORPUSCULAR VOLUME 97.9 fl (80.0-96.0); PLATELET COUNT, AUTOMATED 190 10^3/uL (150-450); RED BLOOD COUNT 2.85 10^6/uL (4.00-5.40); WHITE BLOOD COUNT 3.7 10^3/uL (4.0-10.0)
[2020-05-29 14:58] LABS: CALCIUM LEVEL 7.7 MG/DL (8.8-10.2); CREATININE FOR GFR 1.18 MG/DL (0.55-1.30); GLOMERULAR FILTRATION RATE 46.5 (>32); POTASSIUM SERUM 5.1 MEQ/L (3.5-5.1)
== END ==
LOC: SKLAB3 10:22
PROVIDERS: ATTEND Internal Medicine
DX: Z20.828 Contact with and (suspected) exposure to other viral communicable diseases (principal)

== ENCOUNTER → 2020-05-30 | Outpatient (REF) ==
[2020-05-30 12:54] LABS: CALCIUM LEVEL 7.2 MG/DL (8.8-10.2); CREATININE FOR GFR 1.02 MG/DL (0.55-1.30); POTASSIUM SERUM 3.9 MEQ/L (3.5-5.1)
== END ==
LOC: SKLAB3 07:01
PROVIDERS: ATTEND Internal Medicine
DX: I95.9 Hypotension, unspecified (principal)

== ENCOUNTER → 2020-05-31 | Outpatient (REF) | payer MEDICAID, MEDICARE ==
[~2020-05-31] MED LIST changes: +CALC1CAP31 PO; +CALC200T15 PO; -MAG400TA PO; +MAGN400C2 PO; +MAGN400T35 PO; -QUET1TAB7 PO; +QUET25TA3 PO; +VITA500T40 PO
== END ==
LOC: SKLAB3 11:55
PROVIDERS: ATTEND Internal Medicine
DX: R19.5 Other fecal abnormalities (principal)

== ENCOUNTER → 2020-06-04 | Outpatient (REF) ==
[~2020-06-04] MED LIST changes: -CALC1CAP31 PO; -CALC200T15 PO; +MAG400TA PO; -MAGN400C2 PO; -MAGN400T35 PO; +QUET1TAB7 PO; -QUET25TA3 PO; -VITA500T40 PO
[2020-06-04 12:03] LABS: ALBUMIN 2.7 GM/DL (3.2-5.2); CREATININE FOR GFR 1.13 MG/DL (0.55-1.30); GLOMERULAR FILTRATION RATE 48.8 (>32); PHOSPHORUS LEVEL 3.6 MG/DL (2.5-4.9); POTASSIUM SERUM 5.1 MEQ/L (3.5-5.1)
== END ==
LOC: SKLAB3 14:26
PROVIDERS: ATTEND Internal Medicine
DX: N17.9 Acute kidney failure, unspecified (principal)

== ENCOUNTER → 2020-06-05 | Outpatient (REF) ==
[~2020-06-05] MED LIST changes: +MAGN400C2 PO; +VITA500T40 PO
== END ==
LOC: SKLAB3 07:00
PROVIDERS: ATTEND Internal Medicine
DX: Z20.828 Contact with and (suspected) exposure to other viral communicable diseases (principal)

== ENCOUNTER 2020-06-11 10:36 | Inpatient (IN) | payer MEDICARE, MEDICAID ==
[~2020-06-11] VITALS: Ht 157.5 cm; Wt 38.3 kg
[~2020-06-11 10:36] MED LIST changes: -CALC1CAP31 PO; -CALC200T15 PO; -MAGN400C2 PO; -VITA500T40 PO
[2020-06-11 11:10] LABS: BASO % 0.3 % (0.0-1.0); EOS % 0.3 % (0.0-3.0); HEMATOCRIT 24.8 % (36.0-47.0); HEMOGLOBIN 7.8 g/dl (12.0-15.5); LYMPH # 0.5 10^3/uL (1.5-5.0); MEAN CORPUSCULAR HEMOGLOBIN 31.2 pg (27.0-33.0); MEAN CORPUSCULAR HGB CONC 31.5 g/dl (32.0-36.5); MEAN CORPUSCULAR VOLUME 99.2 fl (80.0-96.0); MONO # 0.2 10^3/uL (0.0-0.8); MONO % 7.1 % (0.0-5.0); NEUTROPHILS # 2.5 10^3/uL (1.5-8.5); PLATELET COUNT, AUTOMATED 167 10^3/uL (150-450); WHITE BLOOD COUNT 3.2 10^3/uL (4.0-10.0)
[2020-06-11] MEDS ORDERED: CINA30TA4 PO (11:26)
[2020-06-11] MEDS ORDERED: VITA500T40 PO (11:26)
[2020-06-11] MEDS ORDERED: MAGN400C2 PO (11:26)
[2020-06-11 11:36] LABS: ALBUMIN 2.4 GM/DL (3.2-5.2); BILIRUBIN,TOTAL 0.4 MG/DL (0.2-1.0); CALCIUM LEVEL 6.1 MG/DL (8.8-10.2); CREATININE FOR GFR 1.07 MG/DL (0.55-1.30); POTASSIUM SERUM 3.6 MEQ/L (3.5-5.1); TOTAL PROTEIN 5.5 GM/DL (6.4-8.2)
[2020-06-11 12:55] LABS: PHOSPHORUS LEVEL 4.3 MG/DL (2.5-4.9)
[2020-06-11] MEDS ORDERED: BISACODYL 10 MG SUPP PR PRN (13:00)
[2020-06-11 13:12] LABS: TOTAL 25(OH) VITAMIN D 33.2 NG/ML (30.0-100.0)
--- NOTE | 2020-06-11 13:16 | ECGEPIP ---
[facility] - ED Test Date: 2020-06-11 Pat Name: GAVIOTA ANDRADE Department: Room: - Gender: Female Clutch Specialist: cordell : [id number] Requested By: Gabrielle Hoff Order Number: [id number] Reading MD: Kiran Bond Measurements Intervals [place] Rate: 60 P: DC: 0 QRS: 50 QRSD: 103 T: 75 QT: 438 QTc: 440 Interpretive Statements SUPRAVENTRICULAR RHYTHM NONSPECIFIC ST & T-WAVE ABNORMALITY subtly different from tracing done 05-07-20 Baseline artifact Electronically Signed on 06-11-2020 13:16:10 EST by Kiran Bond
[2020-06-11] MEDS ORDERED: CALCIUM GLUCONATE 1,000 MG in D5W MINI-BAG PLUS 100 ML IV ONE ×2 (13:30→23:15)
[2020-06-11] MEDS ORDERED: PILL CUTTER 1 EACH XX PRN (13:30)
[2020-06-11 13:49] LABS: RSV AMPLIFICATION NEGATIVE (NEGATIVE)
--- NOTE | 2020-06-11 14:53 | HPEPDOC ---
General Date of Admission Jun 11, 2020 at 13:00 Date of Service: Jun 11, 2020 Chief Complaint The patient is a 84-year-old female admitted with a reason for visit of Hypocalcemia. History of Present Illness 84 year old female with recently diagnosed with Primary hyperparathyroidism in Apr 2020 treated with cinacalcet BID, denosumab (05/08), dementia, hypertension,was sent over from [facility] due to hypocalcemia developing over the past week. Patient complains of some back pain laying down int eh stretcher in emergency in her low back about 4/10 dull aching in nature. Wants to get out of bed. SHe does not have any tingling or numbness or perioral paresthesias attributable to hypocalcemia. She was admitted or management of hypocalcemia. Home Medications Scheduled Cinacalcet (Sensipar) 30 Mg Tablet, 30 MG PO BID, (Reported) Cyanocobalamin (Vitamin B-12) (Vitamin B-12) 500 Mcg Tablet, 500 MCG PO DAILY, (Reported) Famotidine (Famotidine) 20 Mg Tablet, 20 MG PO DAILY, (Reported) Ferrous Sulfate (Iron) 325 Mg Tablet, 325 MG PO DAILY, (Reported) Folic Acid (Folic Acid) 1 Mg Tablet, 1 MG PO DAILY, (Reported) Labetalol HCl (Labetalol HCl) 100 Mg Tablet, 100 MG PO BID, (Reported) Magnesium Oxide (Magnesium) 400 Mg Capsule, 800 MG PO BID, (Reported) Quetiapine Fumarate (Quetiapine Fumarate) 25 Mg Tablet, 25 MG PO QHS, (Reported) Vitamin D (Vitamin D3) 10 Mcg Tablet, 600 UNITS PO DAILY, (Reported) Scheduled PRN Acetaminophen (Acetaminophen) 325 Mg Tablet, 650 MG PO Q4H PRN for PAIN, (Reported) Bisacodyl (Dulcolax) 10 Mg Supp.rect, 10 MG [place] DAILY PRN for CONSTIPATION, (Reported) Docusate Sodium (Colace) 100 Mg Capsule, 200 MG PO QHS PRN for CONSTIPATION, (Reported) Magnesium Hydroxide (Milk of Magnesia) 400 Mg/5 Ml Oral.susp, 10 ML PO DAILY PRN for CONSTIPATION, (Reported) Sodium Phosphate,[place]-Dibasic (Enema) 133 Ml Enema, 1 ANNA [place] DAILY PRN for CONSTIPATION, (Reported) Allergies Coded Allergies: No Known Drug Allergies (Verified Allergy, Unknown, 05/07/20) Past Medical History Medical History Primary Hyperparathyroidism HTN Dementia Hypomagnesemia Pancytopenia. Protein calorie malnutrition. Surgical History Cholecystectomy Bowel resection Hysterectomy Family History unable to get due to dementia. Social History * Smoker: Denies Alcohol: Denies Drugs: denies A-FIB/CHADSVASC A-FIB History Current/History of A-Fib/PAF?: No Review of Systems Constitutional: Denies: Chills, Fever, Night Sweats Eyes: Denies: Pain, Vision change ENT: Denies: Head Aches, Ear Pain, Dysphagia Skin: Denies: Rash, Lesions, Breakdown Pulmonary: Denies: Dyspnea, Cough Cardiovascular: Denies: Chest Pain, Palpitations, Orthopnea, Paroxysmal Noc. Dyspnea, Lt Headedness Gastrointestinal: Denies: Nausea, Vomiting, Abdominal Pain, Diarrhea Genitourinary: Denies: Dysuria, Frequency, Incontinence, Retention Physical Examination General Exam: Positive: Alert, Cooperative, No Acute Distress Eye Exam: Positive: PERRLA, Conjunctiva & lids normal, EOMI; Negative: Sclera icteric ENT Exam: Positive: Atraumatic, Mucous membr. moist/pink, Pharynx Normal, Other ENT (bitemporal wasting.) Neck Exam: Positive: Supple; Negative: JVD, thyromegaly Chest Exam: Positive: Clear to auscultation, Diminished (breath sounds bilaterally) Heart Exam: Positive: Rate Normal, Regular Rhythm, Normal S1, Normal S2; Negative: Murmurs, Rubs Telemetry: Positive: No significant arrhythmia Abdomen Exam: Positive: Normal bowel sounds, Soft; Negative: Tenderness, Hepatospenomegaly Extremity Exam: Negative: Clubbing, Cyanosis, Edema Skin Exam: Positive: Nl turgor and temperature; Negative: Breakdown, Lesion Vital Signs Vital Signs Date Time Temp Pulse Resp B/P (MAP) Pulse Ox O2 Delivery O2 Flow Rate FiO2 06/11/20 14:21 64 20 100 Room Air 06/11/20 13:00 112/56 (74) 06/11/20 12:15 98.1 Laboratory Data Labs 24H Laboratory Tests 2 06/11/20 10:57: Anion Gap 8, Glomerular Filtration Rate 52.0, Calcium Level 6.1L, Phosphorus Level 4.3, Magnesium Level 2.0, Total Bilirubin 0.4, Aspartate Amino Transf (AST/SGOT) 8, Alanine Aminotransferase (ALT/SGPT) 12, Alkaline Phosphatase 148H, Total Protein 5.5L, Albumin 2.4L, Albumin/Globulin Ratio 0.8L, 25-Hydroxy Vitamin D Total 33.2 06/11/20 10:58: Immature Granulocyte % (Auto) 0.3, Neutrophils (%) (Auto) 76.0H, Lymphocytes (%) (Auto) 16.0L, Monocytes (%) (Auto) 7.1H, Eosinophils (%) (Auto) 0.3, Basophils (%) (Auto) 0.3, Neutrophils # (Auto) 2.5, Lymphocytes # (Auto) 0.5L, Monocytes # (Auto) 0.2, Eosinophils # (Auto) 0.0, Basophils # (Auto) 0.0, Nucleated Red Bl ood Cells % (auto) 0.0 06/11/20 12:01: POC Glucose (Misc Panel) 105, POC Sodium (Misc Panel) 136, POC Potassium (Misc Panel) 3.4L, POC Chloride (Misc Panel) 101, POC Total CO2 (Misc Panel) 23.0, POC Blood Urea Nitrogen (Misc Panel 20, POC Ionized Calcium (Misc Panel) 3.2*L, POC Creatinine (Misc Panel) 1.0, POC Hematocrit (Misc Panel) 19.0L 06/11/20 12:59: Coronavirus (COVID-19)(PCR) NEGATIVE, Influenza Type A (RT-PCR) NEGATIVE, Influenza Type B (RT-PCR) NEGATIVE, Respiratory Syncytial Virus (PCR) NEGATIVE CBC/BMP Laboratory Tests 06/11/20 10:57 06/11/20 10:58 Assessment/Plan 84 year old female with recently diagnosed with Primary hyperparathyroidism in Apr 2020 treated with cinacalcet BID, denosumab (05/08), dementia, hypertension,was sent over from [facility] due to hypocalcemia developing over the past week. Patient complains of some back pain laying down int eh stretcher in emergency in her low back about 4/10 dull aching in nature. Wants to get out of bed. SHe does not have any tingling or numbness or perioral paresthesias attributable to hypocalcemia. She was admitted or management of hypocalcemia. Hypocalcemia due to medications given for management of hypercalcemia will stop sensipar. IV calcium gluconate continue vit D recheck in the PM telemetry. Dementia sitter if needed continue Seroquel Hypomagnesemia continue supplement Hypertension continue Labetelol. Anemia Hb at 7.8 No iron or vit b12 or folate def probably anemia of chronic disease. If hb falls below 7.5 then will transfuse. Severe protein calorie malnutrition BMI of 15.5, low albumin 2.4, bitemporal wasting probably due to age and dementia and decreasing oral intake Plan / VTE VTE Prophylaxis Ordered?: Yes BIGG OLIVAS MD Jun 11, 2020 14:52
[2020-06-11 16:45] VITALS: BP 138/54
[2020-06-11] MEDS: MAGNESIUM OXIDE 400 MG TAB (MAG-OX) PO SCH (20:28)
[2020-06-11] MEDS: QUEtiapine FUMARATE 25 MG TAB PO SCH (20:28)
[2020-06-11 20:54] LABS: CALCIUM LEVEL 6.2 MG/DL (8.8-10.2); CREATININE FOR GFR 0.99 MG/DL (0.55-1.30); GLOMERULAR FILTRATION RATE 56.9 (>32); POTASSIUM SERUM 3.6 MEQ/L (3.5-5.1)
[2020-06-11] MEDS: LABETALOL 100 MG TAB PO SCH (21:30)
[2020-06-11 22:00] VITALS: BP 110/59
[2020-06-12 05:47] LABS: BASO % 0.3 % (0.0-1.0); EOS % 0.6 % (0.0-3.0); HEMATOCRIT 22.2 % (36.0-47.0); HEMOGLOBIN 7.2 g/dl (12.0-15.5); LYMPH # 0.6 10^3/uL (1.5-5.0); LYMPH % 17.6 % (24.0-44.0); MEAN CORPUSCULAR HEMOGLOBIN 31.3 pg (27.0-33.0); MEAN CORPUSCULAR HGB CONC 32.4 g/dl (32.0-36.5); MEAN CORPUSCULAR VOLUME 96.5 fl (80.0-96.0); MONO # 0.2 10^3/uL (0.0-0.8); MONO % 6.6 % (0.0-5.0); NEUTROPHILS # 2.4 10^3/uL (1.5-8.5); NEUTROPHILS % 74.6 % (36.0-66.0); PLATELET COUNT, AUTOMATED 159 10^3/uL (150-450); WHITE BLOOD COUNT 3.2 10^3/uL (4.0-10.0)
[2020-06-12 06:00] VITALS: BP 117/62
[2020-06-12 06:05] LABS: BLOOD UREA NITROGEN 19 MG/DL (7-18); CALCIUM LEVEL 6.3 MG/DL (8.8-10.2); CARBON DIOXIDE LEVEL 25 MEQ/L (21-32); CHLORIDE LEVEL 107 MEQ/L (98-107); CREATININE FOR GFR 0.91 MG/DL (0.55-1.30); GLOMERULAR FILTRATION RATE > 60.0 (>32); GLUCOSE, FASTING 99 MG/DL (70-100); POTASSIUM SERUM 3.6 MEQ/L (3.5-5.1); SODIUM LEVEL 138 MEQ/L (136-145)
--- NOTE | 2020-06-12 07:36 | IPNPDOC ---
Subjective Date Seen The patient was seen on 06/12/20. Subjective Chief Complaint/HPI No issues overnight. No fever or chills, no tingling or numbness. Complains of right knee pain and bilateral shoulder pain. Objective Physical Examination General Exam: Positive: Alert, Cooperative, No Acute Distress Eye Exam: Positive: PERRLA, Conjunctiva & lids normal, EOMI; Negative: Sclera icteric ENT Exam: Positive: Atraumatic, Mucous membr. moist/pink, Pharynx Normal, Other ENT (bitemporal wasting.) Neck Exam: Positive: Supple; Negative: JVD, thyromegaly Chest Exam: Positive: Clear to auscultation, Diminished (breath sounds bilaterally) Heart Exam: Positive: Rate Normal, Regular Rhythm, Normal S1, Normal S2; Negative: Murmurs, Rubs Telemetry: Positive: No significant arrhythmia Abdomen Exam: Positive: Normal bowel sounds, Soft; Negative: Tenderness, Hepatospenomegaly Extremity Exam: Negative: Clubbing, Cyanosis, Edema Skin Exam: Positive: Nl turgor and temperature; Negative: Breakdown, Lesion Assessment /Plan Assessment 84 year old female with recently diagnosed with Primary hyperparathyroidism in Apr 2020 treated with cinacalcet BID, denosumab (05/08), dementia, hypertension,was sent over from [facility] due to hypocalcemia developing over the past week. Patient complains of some back pain laying down int eh stretcher in emergency in her low back about 4/10 dull aching in nature. Wants to get out of bed. SHe does not have any tingling or numbness or perioral paresthesias attributable to hypocalcemia. She was admitted or management of hypocalcemia. Hypocalcemia due to medications given for management of hypercalcemia will stop sensipar. IV calcium gluconate as needed will start calcitriol and continue vit D telemetry no arrhythmias. Dementia sitter if needed continue Seroquel Hypomagnesemia continue supplement Hypertension continue Labetelol. Anemia Hb at 7.2 No iron or vit b12 or folate def probably anemia of chronic disease. will give 1 unit of prbc Severe protein calorie malnutrition BMI of 15.5, low albumin 2.4, bitemporal wasting probably due to age and dementia and decreasing oral intake OA of knees and shoulders continue tylenol. Plan/VTE VTE Prophylaxis Ordered?: Yes VS, I&O, 24H, Fishbone Vital Signs/I&O Vital Signs Date Time Temp Pulse Resp B/P (MAP) Pulse Ox O2 Delivery O2 Flow Rate FiO2 06/12/20 06:00 98.0 76 17 117/62 (80) 98 Room Air I&O- Last 24 Hours up to 6 AM 06/12/20 06:00 Intake Total 470 ml Balance 470 ml Laboratory Data 24H LABS Laboratory Tests 2 06/11/20 10:57: Anion Gap 8, Glomerular Filtration Rate 52.0, Calcium Level 6.1L, Phosphorus Level 4.3, Magnesium Level 2.0, Total Bilirubin 0.4, Aspartate Amino Transf (AST/SGOT) 8, Alanine Aminotransferase (ALT/SGPT) 12, Alkaline Phosphatase 148H, Total Protein 5.5L, Albumin 2.4L, Albumin/Globulin Ratio 0.8L, 25-Hydroxy Vitamin D Total 33.2, Parathyroid Hormone (Intact) 259.0H 06/11/20 10:58: Immature Granulocyte % (Auto) 0.3, Neutrophils (%) (Auto) 76.0H, Lymphocytes (%) (Auto) 16.0L, Monocytes (%) (Auto) 7.1H, Eosinophils (%) (Auto) 0.3, Basophils (%) (Auto) 0.3, Neutrophils # (Auto) 2.5, Lymphocytes # (Auto) 0.5L, Monocytes # (Auto) 0.2, Eosinophils # (Auto) 0.0, Basophils # (Auto) 0.0, Nucleated Red Blood Cells % (auto) 0.0 06/11/20 12:01: POC Glucose (Misc Panel) 105, POC Sodium (Misc Panel) 136, POC Potassium (Misc Panel) 3.4L, POC Chloride (Misc Panel) 101, POC Total CO2 (Misc Panel) 23.0, POC Blood Urea Nitrogen (Misc Panel 20, POC Ionized Calcium (Misc Panel) 3.2*L, POC Creatinine (Misc Panel) 1.0, POC Hematocrit (Misc Panel) 19.0L 06/11/20 12:59: Coronavirus (COVID-19)(PCR) NEGATIVE, Influenza Type A (RT-PCR) NEGATIVE, Influenza Type B (RT-PCR) NEGATIVE, Respiratory Syncytial Virus (PCR) NEGATIVE 06/11/20 20:08: Anion Gap 9, Glomerular Filtration Rate 56.9, Calcium Level 6.2L, Whole Blood Ionized Calcium 3.4*L 06/12/20 05:34: Anion Gap 6L, Glomerular Filtration Rate > 60.0, Calcium Level 6.3L, Whole Blood Ionized Calcium 3.5*L, Immature Granulocyte % (Auto) 0.3, Neutrophils (%) (Auto) 74.6H, Lymphocytes (%) (Auto) 17.6L, Monocytes (%) (Auto) 6.6H, Eosinophils (%) (Auto) 0.6, Basophils (%) (Auto) 0.3, Neutrophils # (Auto) 2.4, Lymphocytes # (Auto) 0.6L, Monocytes # (Auto) 0.2, Eosinophils # (Auto) 0.0, Basophils # (Auto) 0.0, Nucleated Red Blood Cells % (auto) 0.0 CBC/BMP Laboratory Tests 06/11/20 10:57 06/11/20 10:58 06/11/20 20:08 06/12/20 05:34 BIGG OLIVAS MD Jun 12, 2020 07:36
[2020-06-12] MEDS: CALCIUM GLUCONATE 1,000 MG in D5W MINI-BAG PLUS 100 ML IV SCH ×2 (08:56→10:10)
[2020-06-12] MEDS: MAGNESIUM OXIDE 400 MG TAB (MAG-OX) PO SCH ×2 (08:57→20:14)
[2020-06-12] MEDS: CYANOCOBALAMIN 500 MCG TAB PO SCH (08:57)
[2020-06-12] MEDS: FERROUS SULFATE 325MG TAB PO SCH (08:57)
[2020-06-12] MEDS: FOLIC ACID 1 MG TAB PO SCH (08:57)
[2020-06-12] MEDS: FAMOTIDINE 20 MG TAB PO SCH (08:57)
[2020-06-12] MEDS: LABETALOL 100 MG TAB PO SCH ×2 (08:59→20:38)
[2020-06-12] MEDS: ACETAMINOPHEN TAB 650MG DOSE (2X325MG) PO PRN (09:00)
[2020-06-12] MEDS: VITAMIN D (CHOLECALCIFEROL) 400 INTERNATIONAL UNITS TAB PO SCH (10:10)
[2020-06-12] MEDS: CALCITRIOL 0.25 MCG CAP (S0169) PO SCH ×2 (12:27→20:15)
[2020-06-12 14:00] VITALS: BP 102/49
[2020-06-12] MEDS: QUEtiapine FUMARATE 25 MG TAB PO SCH (20:15)
[2020-06-12 22:00] VITALS: BP 127/56
[2020-06-13] MEDS ORDERED: CALCIUM GLUCONATE 1,000 MG in D5W MINI-BAG PLUS 100 ML IV ONE ×2
[2020-06-13 06:00] VITALS: BP 108/68
[2020-06-13 06:05] LABS: BASO % 0.3 % (0.0-1.0); EOS % 0.7 % (0.0-3.0); HEMOGLOBIN 7.2 g/dl (12.0-15.5); LYMPH # 0.6 10^3/uL (1.5-5.0); LYMPH % 18.6 % (24.0-44.0); MEAN CORPUSCULAR HEMOGLOBIN 30.9 pg (27.0-33.0); MEAN CORPUSCULAR HGB CONC 31.3 g/dl (32.0-36.5); MEAN CORPUSCULAR VOLUME 98.7 fl (80.0-96.0); MONO # 0.3 10^3/uL (0.0-0.8); MONO % 8.3 % (0.0-5.0); NEUTROPHILS # 2.2 10^3/uL (1.5-8.5); NEUTROPHILS % 71.4 % (36.0-66.0); PLATELET COUNT, AUTOMATED 157 10^3/uL (150-450); RED BLOOD COUNT 2.33 10^6/uL (4.00-5.40)
[2020-06-13 06:30] LABS: BLOOD UREA NITROGEN 22 MG/DL (7-18); CALCIUM LEVEL 7.1 MG/DL (8.8-10.2); CARBON DIOXIDE LEVEL 24 MEQ/L (21-32); CHLORIDE LEVEL 106 MEQ/L (98-107); CREATININE FOR GFR 0.92 MG/DL (0.55-1.30); GLOMERULAR FILTRATION RATE > 60.0 (>32); GLUCOSE, FASTING 81 MG/DL (70-100); POTASSIUM SERUM 3.6 MEQ/L (3.5-5.1); SODIUM LEVEL 138 MEQ/L (136-145)
[2020-06-13 07:42] LABS: ALBUMIN 2.1 GM/DL (3.2-5.2)
[2020-06-13] MEDS: VITAMIN D (CHOLECALCIFEROL) 400 INTERNATIONAL UNITS TAB PO SCH (10:06)
[2020-06-13] MEDS: FOLIC ACID 1 MG TAB PO SCH (10:07)
[2020-06-13] MEDS: FERROUS SULFATE 325MG TAB PO SCH (10:07)
[2020-06-13] MEDS: CYANOCOBALAMIN 500 MCG TAB PO SCH (10:07)
[2020-06-13] MEDS: CALCITRIOL 0.25 MCG CAP (S0169) PO SCH ×2 (10:08→20:25)
[2020-06-13] MEDS: MAGNESIUM OXIDE 400 MG TAB (MAG-OX) PO SCH ×2 (10:08→20:25)
[2020-06-13] MEDS: LABETALOL 100 MG TAB PO SCH ×2 (10:08→20:26)
[2020-06-13] MEDS: ACETAMINOPHEN TAB 650MG DOSE (2X325MG) PO PRN (10:11)
[2020-06-13] MEDS: FAMOTIDINE 20 MG TAB PO SCH (10:14)
--- NOTE | 2020-06-13 10:33 | IPNPDOC ---
Subjective Date Seen The patient was seen on 06/13/20. Subjective Chief Complaint/HPI No complaints this morning except for Knee pain. slept well last night. Objective Physical Examination General Exam: Positive: Alert, Cooperative, No Acute Distress Eye Exam: Positive: PERRLA, Conjunctiva & lids normal, EOMI; Negative: Sclera icteric ENT Exam: Positive: Atraumatic, Mucous membr. moist/pink, Pharynx Normal, Other ENT (bitemporal wasting.) Neck Exam: Positive: Supple; Negative: JVD, thyromegaly Chest Exam: Positive: Clear to auscultation, Diminished (breath sounds bilaterally) Heart Exam: Positive: Rate Normal, Regular Rhythm, Normal S1, Normal S2; Negative: Murmurs, Rubs Telemetry: Positive: No significant arrhythmia Abdomen Exam: Positive: Normal bowel sounds, Soft; Negative: Tenderness, Hepatospenomegaly Extremity Exam: Negative: Clubbing, Cyanosis, Edema Skin Exam: Positive: Nl turgor and temperature; Negative: Breakdown, Lesion Assessment /Plan Assessment 84 year old female with recently diagnosed with Primary hyperparathyroidism in Apr 2020 treated with cinacalcet BID, denosumab (05/08), dementia, hypertension,was sent over from [facility] due to hypocalcemia developing over the past week. Patient complains of some back pain laying down int eh stretcher in emergency in her low back about 4/10 dull aching in nature. Wants to get out of bed. SHe does not have any tingling or numbness or perioral paresthesias attributable to hypocalcemia. She was admitted or management of hypocalcemia. Hypocalcemia due to medications given for management of hypercalcemia will stop sensipar. IV calcium gluconate as needed will start calcitriol and continue vit D telemetry no arrhythmias. Dementia sitter if needed continue Seroquel Hypomagnesemia continue supplement Hypertension continue Labetelol. Anemia Hb at 7.2 No iron or vit b12 or folate def probably anemia of chronic disease. will give 1 unit of prbc Severe protein calorie malnutrition BMI of 15.5, low albumin 2.4, bitemporal wasting probably due to age and dementia and decreasing oral intake OA of knees and shoulders continue tylenol. Plan/VTE VTE Prophylaxis Ordered?: Yes VS, I&O, 24H, Fishbone Vital Signs/I&O Vital Signs Date Time Temp Pulse Resp B/P (MAP) Pulse Ox O2 Delivery O2 Flow Rate FiO2 06/13/20 10:08 66 118/62 06/13/20 06:00 98.0 18 91 Room Air I&O- Last 24 Hours up to 6 AM 06/13/20 06:00 Intake Total 960 ml Output Total 0 ml Balance 960 ml Laboratory Data 24H LABS Laboratory Tests 2 06/12/20 13:51: Whole Blood Ionized Calcium 3.5*L 06/12/20 20:08: Whole Blood Ionized Calcium 3.9L 06/13/20 05:45: Immature Granulocyte % (Auto) 0.7, Neutrophils (%) (Auto) 71.4H, Lymphocytes (%) (Auto) 18.6L, Monocytes (%) (Auto) 8.3H, Eosinophils (%) (Auto) 0.7, Basophils (%) (Auto) 0.3, Neutrophils # (Auto) 2.2, Lymphocytes # (Auto) 0.6L, Monocytes # (Auto) 0.3, Eosinophils # (Auto) 0.0, Basophils # (Auto) 0.0, Nucleated Red Blood Cells % (auto) 0.0, Anion Gap 8, Glomerular Filtration Rate > 60.0, Calcium Level 7.1L, Albumin 2.1L CBC/BMP Laboratory Tests 06/13/20 05:45 BIGG OLIVAS MD Jun 13, 2020 10:33
[2020-06-13 14:00] VITALS: BP 98/41
[2020-06-13] MEDS: CALCIUM GLUCONATE 1,000 MG in D5W MINI-BAG PLUS 100 ML IV SCH ×2 (15:08→17:09)
[2020-06-13] MEDS: QUEtiapine FUMARATE 25 MG TAB PO SCH (20:25)
[2020-06-13 22:00] VITALS: BP 140/45
[2020-06-14] VITALS (13 sets, daily range): BP systolic 118–140; BP diastolic 45–87
[2020-06-14 05:33] LABS: BASO % 0.4 % (0.0-1.0); EOS % 1.2 % (0.0-3.0); HEMATOCRIT 23.2 % (36.0-47.0); HEMOGLOBIN 7.3 g/dl (12.0-15.5); LYMPH # 0.5 10^3/uL (1.5-5.0); LYMPH % 20.8 % (24.0-44.0); MEAN CORPUSCULAR HEMOGLOBIN 30.9 pg (27.0-33.0); MEAN CORPUSCULAR HGB CONC 31.5 g/dl (32.0-36.5); MEAN CORPUSCULAR VOLUME 98.3 fl (80.0-96.0); MONO # 0.1 10^3/uL (0.0-0.8); MONO % 4.6 % (0.0-5.0); NEUTROPHILS # 1.9 10^3/uL (1.5-8.5); NEUTROPHILS % 72.2 % (36.0-66.0); PLATELET COUNT, AUTOMATED 166 10^3/uL (150-450); RED BLOOD COUNT 2.36 10^6/uL (4.00-5.40); WHITE BLOOD COUNT 2.6 10^3/uL (4.0-10.0)
[2020-06-14 06:08] LABS: ALBUMIN 2.1 GM/DL (3.2-5.2); BLOOD UREA NITROGEN 24 MG/DL (7-18); CALCIUM LEVEL 6.2 MG/DL (8.8-10.2); CARBON DIOXIDE LEVEL 25 MEQ/L (21-32); CHLORIDE LEVEL 109 MEQ/L (98-107); CREATININE FOR GFR 0.86 MG/DL (0.55-1.30); GLOMERULAR FILTRATION RATE > 60.0 (>32); GLUCOSE, FASTING 78 MG/DL (70-100); POTASSIUM SERUM 3.8 MEQ/L (3.5-5.1); SODIUM LEVEL 140 MEQ/L (136-145)
[2020-06-14] MEDS: CALCIUM CARBONATE 500 MG CHEW U/D PO SCH ×4 (08:38→20:04)
[2020-06-14] MEDS: CYANOCOBALAMIN 500 MCG TAB PO SCH (08:38)
[2020-06-14] MEDS: MAGNESIUM OXIDE 400 MG TAB (MAG-OX) PO SCH ×3 (08:38→20:04)
[2020-06-14] MEDS: CALCITRIOL 0.25 MCG CAP (S0169) PO SCH ×2 (08:38→20:04)
[2020-06-14] MEDS: FAMOTIDINE 20 MG TAB PO SCH (08:38)
[2020-06-14] MEDS: FERROUS SULFATE 325MG TAB PO SCH (08:38)
[2020-06-14] MEDS: FOLIC ACID 1 MG TAB PO SCH (08:38)
[2020-06-14] MEDS: VITAMIN D (CHOLECALCIFEROL) 400 INTERNATIONAL UNITS TAB PO SCH (08:38)
[2020-06-14] MEDS: LABETALOL 100 MG TAB PO SCH ×2 (08:39→20:04)
[2020-06-14] MEDS ORDERED: MAGNESIUM OXIDE 400 MG TAB (MAG-OX) PO SCH (09:00)
[2020-06-14 10:06] LABS: FERRITIN 342 NG/ML (8-252); IRON (FE) 16 UG/DL (50-170); MAGNESIUM LEVEL 1.7 MG/DL (1.8-2.4); PERCENT SATURATION 13.8 % (13.2-45.0); TOTAL IRON BINDING CAPACITY 116 UG/DL (250-450)
--- NOTE | 2020-06-14 10:18 | IPNPDOC ---
Subjective Date Seen The patient was seen on 06/14/20. Subjective Chief Complaint/HPI Awake , alert and oriented to name , place with appropriate behavior and answering questions appropriately. Objective Physical Examination General Exam: Positive: Alert, Cooperative, No Acute Distress Eye Exam: Positive: PERRLA, Conjunctiva & lids normal, EOMI; Negative: Sclera icteric ENT Exam: Positive: Atraumatic, Mucous membr. moist/pink, Pharynx Normal, Other ENT (bitemporal wasting.) Neck Exam: Positive: Supple; Negative: JVD, thyromegaly Chest Exam: Positive: Clear to auscultation, Diminished (breath sounds bilaterally) Heart Exam: Positive: Rate Normal, Regular Rhythm, Normal S1, Normal S2; Negative: Murmurs, Rubs Telemetry: Positive: No significant arrhythmia Abdomen Exam: Positive: Normal bowel sounds, Soft; Negative: Tenderness, Hepatospenomegaly Extremity Exam: Negative: Clubbing, Cyanosis, Edema Skin Exam: Positive: Nl turgor and temperature; Negative: Breakdown, Lesion Assessment /Plan Assessment 84 year old female with recently diagnosed with Primary hyperparathyroidism in Apr 2020 treated with cinacalcet BID, denosumab (05/08), dementia, hypertension,was sent over from [facility] due to hypocalcemia developing over the past week. Patient complains of some back pain laying down int eh stretcher in emergency in her low back about 4/10 dull aching in nature. Wants to get out of bed. SHe does not have any tingling or numbness or perioral paresthesias attributable to hypocalcemia. She was admitted or management of hypocalcemia. Hypocalcemia due to medications given for management of hypercalcemia will stop sensipar. IV calcium gluconate as needed will start calcitriol and calcium carbonate continue vit D Hypomagnesemia will replace. Dementia sitter if needed continue Seroquel Hypertension continue Labetelol. Anemia Hb at 7.2 No iron or vit b12 or folate def probably anemia of chronic disease. will give 2 units of prbc Severe protein calorie malnutrition BMI of 15.5, low albumin 2.4, bitemporal wasting probably due to age and dementia and decreasing oral intake OA of knees and shoulders continue tylenol. Plan/VTE VTE Prophylaxis Ordered?: Yes VS, I&O, 24H, Fishbone Vital Signs/I&O Vital Signs Date Time Temp Pulse Resp B/P (MAP) Pulse Ox O2 Delivery O2 Flow Rate FiO2 06/14/20 08:39 62 119/79 06/14/20 06:00 98.4 18 95 Room Air I&O- Last 24 Hours up to 6 AM 06/14/20 06:00 Intake Total 1390 ml Output Total 0 ml Balance 1390 ml Laboratory Data 24H LABS Laboratory Tests 2 06/13/20 13:46: Whole Blood Ionized Calcium 3.6L 06/14/20 05:27: Whole Blood Ionized Calcium 3.6L, Immature Granulocyte % (Auto) 0.8, Neutrophils (%) (Auto) 72.2H, Lymphocytes (%) (Auto) 20.8L, Monocytes (%) (Auto) 4.6, Eosinophils (%) (Auto) 1.2, Basophils (%) (Auto) 0.4, Neutrophils # (Auto) 1.9, Lymphocytes # (Auto) 0.5L, Monocytes # (Auto) 0.1, Eosinophils # (Auto) 0.0, Basophils # (Auto) 0.0, Nucleated Red Blood Cells % (auto) 0.0, Anion Gap 6L, Glomerular Filtration Rate > 60.0, Calcium Level 6.2L, Magnesium Level 1.7L, Iron Level 16L, Total Iron Binding Capacity 116L, Transferrin % Saturation 13.8, Ferritin 342H, Albumin 2.1L CBC/BMP Laboratory Tests 06/14/20 05:27 BIGG OLIVAS MD Jun 14, 2020 10:18
[2020-06-14] MEDS ORDERED: FUROSEMIDE 20MG/2ML VIAL (J1940) IV ONE (10:30)
[2020-06-14] MEDS: MAG SULF 1GM/100ML (MAG RUN) 1 GM in IV 1 EA IV SCH ×2 (11:09→13:17)
[2020-06-14] MEDS: QUEtiapine FUMARATE 25 MG TAB PO SCH (20:04)
[2020-06-15 06:00] VITALS: BP 115/56
[2020-06-15 06:13] LABS: BASO % 0.4 % (0.0-1.0); EOS % 1.6 % (0.0-3.0); HEMATOCRIT 30.3 % (36.0-47.0); LYMPH # 0.6 10^3/uL (1.5-5.0); LYMPH % 23.8 % (24.0-44.0); MEAN CORPUSCULAR HEMOGLOBIN 30.1 pg (27.0-33.0); MEAN CORPUSCULAR HGB CONC 32.3 g/dl (32.0-36.5); MEAN CORPUSCULAR VOLUME 92.9 fl (80.0-96.0); MONO # 0.1 10^3/uL (0.0-0.8); MONO % 5.7 % (0.0-5.0); NEUTROPHILS # 1.7 10^3/uL (1.5-8.5); NEUTROPHILS % 68.1 % (36.0-66.0); PLATELET COUNT, AUTOMATED 181 10^3/uL (150-450); RED BLOOD COUNT 3.26 10^6/uL (4.00-5.40); WHITE BLOOD COUNT 2.4 10^3/uL (4.0-10.0)
[2020-06-15 06:17] LABS: HEMOGLOBIN 9.8 g/dl (12.0-15.5)
[2020-06-15 06:29] LABS: BLOOD UREA NITROGEN 20 MG/DL (7-18); CALCIUM LEVEL 7.4 MG/DL (8.8-10.2); CARBON DIOXIDE LEVEL 27 MEQ/L (21-32); CHLORIDE LEVEL 106 MEQ/L (98-107); CREATININE FOR GFR 0.83 MG/DL (0.55-1.30); GLOMERULAR FILTRATION RATE > 60.0 (>32); GLUCOSE, FASTING 81 MG/DL (70-100); MAGNESIUM LEVEL 2.1 MG/DL (1.8-2.4); POTASSIUM SERUM 3.5 MEQ/L (3.5-5.1); SODIUM LEVEL 141 MEQ/L (136-145)
[2020-06-15 06:36] LABS: ALBUMIN 2.2 GM/DL (3.2-5.2)
[2020-06-15] MEDS: LABETALOL 100 MG TAB PO SCH ×2 (09:00→20:16)
[2020-06-15] MEDS: MAGNESIUM OXIDE 400 MG TAB (MAG-OX) PO SCH ×3 (09:04→20:15)
[2020-06-15] MEDS: FAMOTIDINE 20 MG TAB PO SCH (09:04)
[2020-06-15] MEDS: FERROUS SULFATE 325MG TAB PO SCH (09:04)
[2020-06-15] MEDS: CALCITRIOL 0.25 MCG CAP (S0169) PO SCH ×2 (09:04→20:14)
[2020-06-15] MEDS: CALCIUM CARBONATE 500 MG CHEW U/D PO SCH ×4 (09:05→20:23)
[2020-06-15] MEDS: FOLIC ACID 1 MG TAB PO SCH (09:05)
[2020-06-15] MEDS: VITAMIN D (CHOLECALCIFEROL) 400 INTERNATIONAL UNITS TAB PO SCH (09:05)
[2020-06-15] MEDS: CYANOCOBALAMIN 500 MCG TAB PO SCH (09:05)
--- NOTE | 2020-06-15 10:56 | IPNPDOC ---
Subjective Date Seen The patient was seen on 06/15/20. Subjective Chief Complaint/HPI No complaints this morning. Objective Physical Examination General Exam: Positive: Alert, Cooperative, No Acute Distress Eye Exam: Positive: PERRLA, Conjunctiva & lids normal, EOMI; Negative: Sclera icteric ENT Exam: Positive: Atraumatic, Mucous membr. moist/pink, Pharynx Normal, Other ENT (bitemporal wasting.) Neck Exam: Positive: Supple; Negative: JVD, thyromegaly Chest Exam: Positive: Clear to auscultation, Diminished (breath sounds bilaterally) Heart Exam: Positive: Rate Normal, Regular Rhythm, Normal S1, Normal S2; Negative: Murmurs, Rubs Telemetry: Positive: No significant arrhythmia Abdomen Exam: Positive: Normal bowel sounds, Soft; Negative: Tenderness, Hepatospenomegaly Extremity Exam: Negative: Clubbing, Cyanosis, Edema Skin Exam: Positive: Nl turgor and temperature; Negative: Breakdown, Lesion Assessment /Plan Assessment 84 year old female with recently diagnosed with Primary hyperparathyroidism in Apr 2020 treated with cinacalcet BID, denosumab (05/08), dementia, hypertension,was sent over from [facility] due to hypocalcemia developing over the past week. Patient complains of some back pain laying down int eh stretcher in emergency in her low back about 4/10 dull aching in nature. Wants to get out of bed. SHe does not have any tingling or numbness or perioral paresthesias attributable to hypocalcemia. She was admitted or management of hypocalcemia. Hypocalcemia due to medications given for management of hypercalcemia calcium improving continue calcium carbonate, calcitriol and vit D hold sensipar. Hypomagnesemia replaced Dementia sitter if needed continue Seroquel Hypertension continue Labetelol. Anemia Hb at 7.2 No iron or vit b12 or folate def probably anemia of chronic disease. given 2 units of prbc. Severe protein calorie malnutrition BMI of 15.5, low albumin 2.4, bitemporal wasting probably due to age and dementia and decreasing oral intake OA of knees and shoulders continue tylenol. Plan/VTE VTE Prophylaxis Ordered?: Yes VS, I&O, 24H, Fishbone Vital Signs/I&O Vital Signs Date Time Temp Pulse Resp B/P (MAP) Pulse Ox O2 Delivery O2 Flow Rate FiO2 06/15/20 06:00 98.2 51 16 115/56 (75) 98 Room Air I&O- Last 24 Hours up to 6 AM 06/15/20 06:00 Intake Total 2016 ml Output Total 100 ml Balance 1916 ml Laboratory Data 24H LABS Laboratory Tests 2 06/15/20 05:35: Immature Granulocyte % (Auto) 0.4, Neutrophils (%) (Auto) 68.1H, Lymphocytes (%) (Auto) 23.8L, Monocytes (%) (Auto) 5.7H, Eosinophils (%) (Auto) 1.6, Basophils (%) (Auto) 0.4, Neutrophils # (Auto) 1.7, Lymphocytes # (Auto) 0.6L, Monocytes # (Auto) 0.1, Eosinophils # (Auto) 0.0, Basophils # (Auto) 0.0, Nucleated Red Blood Cells % (auto) 0.0, Anion Gap 8, Glomerular Filtration Rate > 60.0, Calcium Level 7.4#L, Magnesium Level 2.1, Albumin 2.2L CBC/BMP Laboratory Tests 06/15/20 05:35 BIGG OLIVAS MD Jun 15, 2020 10:56
[2020-06-15 14:00] VITALS: BP 137/52
[2020-06-15] MEDS: QUEtiapine FUMARATE 25 MG TAB PO SCH (20:15)
[2020-06-15 22:00] VITALS: BP 125/57
[2020-06-16 05:56] LABS: BASO % 0.6 % (0.0-1.0); EOS # 0.1 10^3/uL (0.0-0.5); EOS % 1.6 % (0.0-3.0); HEMATOCRIT 29.4 % (36.0-47.0); HEMOGLOBIN 9.7 g/dl (12.0-15.5); LYMPH # 0.9 10^3/uL (1.5-5.0); LYMPH % 29.2 % (24.0-44.0); MEAN CORPUSCULAR HEMOGLOBIN 30.8 pg (27.0-33.0); MEAN CORPUSCULAR VOLUME 93.3 fl (80.0-96.0); MONO # 0.2 10^3/uL (0.0-0.8); MONO % 5.8 % (0.0-5.0); NEUTROPHILS # 1.9 10^3/uL (1.5-8.5); NEUTROPHILS % 62.5 % (36.0-66.0); PLATELET COUNT, AUTOMATED 185 10^3/uL (150-450); RED BLOOD COUNT 3.15 10^6/uL (4.00-5.40); WHITE BLOOD COUNT 3.1 10^3/uL (4.0-10.0)
[2020-06-16 06:00] VITALS: BP 128/60
[2020-06-16 06:28] LABS: CALCIUM LEVEL 7.6 MG/DL (8.8-10.2); CREATININE FOR GFR 1.01 MG/DL (0.55-1.30); GLOMERULAR FILTRATION RATE 55.6 (>32); POTASSIUM SERUM 3.8 MEQ/L (3.5-5.1)
[2020-06-16 08:41] LABS: ALBUMIN 2.1 GM/DL (3.2-5.2); MAGNESIUM LEVEL 2.2 MG/DL (1.8-2.4)
[2020-06-16] MEDS: CALCIUM CARBONATE 500 MG CHEW U/D PO SCH ×3 (09:00→20:34)
[2020-06-16] MEDS: CYANOCOBALAMIN 500 MCG TAB PO SCH (10:11)
[2020-06-16] MEDS: CALCITRIOL 0.25 MCG CAP (S0169) PO SCH ×2 (10:12→20:34)
[2020-06-16] MEDS: FAMOTIDINE 20 MG TAB PO SCH (10:13)
[2020-06-16] MEDS: FERROUS SULFATE 325MG TAB PO SCH (10:13)
[2020-06-16] MEDS: FOLIC ACID 1 MG TAB PO SCH (10:13)
[2020-06-16] MEDS: MAGNESIUM OXIDE 400 MG TAB (MAG-OX) PO SCH ×3 (10:13→20:34)
[2020-06-16] MEDS: VITAMIN D (CHOLECALCIFEROL) 400 INTERNATIONAL UNITS TAB PO SCH (10:13)
[2020-06-16] MEDS: LABETALOL 100 MG TAB PO SCH ×2 (10:14→20:39)
--- NOTE | 2020-06-16 11:08 | IPNPDOC ---
Subjective Date Seen The patient was seen on 06/16/20. Subjective Chief Complaint/HPI No events overnight. No complaints this am. Objective Physical Examination General Exam: Positive: Alert, Cooperative, No Acute Distress Eye Exam: Positive: PERRLA, Conjunctiva & lids normal, EOMI; Negative: Sclera icteric ENT Exam: Positive: Atraumatic, Mucous membr. moist/pink, Pharynx Normal, Other ENT (bitemporal wasting.) Neck Exam: Positive: Supple; Negative: JVD, thyromegaly Chest Exam: Positive: Clear to auscultation, Diminished (breath sounds bilaterally) Heart Exam: Positive: Rate Normal, Regular Rhythm, Normal S1, Normal S2; Negative: Murmurs, Rubs Telemetry: Positive: No significant arrhythmia Abdomen Exam: Positive: Normal bowel sounds, Soft; Negative: Tenderness, Hepatospenomegaly Extremity Exam: Negative: Clubbing, Cyanosis, Edema Skin Exam: Positive: Nl turgor and temperature; Negative: Breakdown, Lesion Assessment /Plan Assessment 84 year old female with recently diagnosed with Primary hyperparathyroidism in Apr 2020 treated with cinacalcet BID, denosumab (05/08), dementia, hypertension,was sent over from [facility] due to hypocalcemia developing over the past week. Patient complains of some back pain laying down int eh stretcher in emergency in her low back about 4/10 dull aching in nature. Wants to get out of bed. SHe does not have any tingling or numbness or perioral paresthesias attributable to hypocalcemia. She was admitted or management of hypocalcemia. Hypocalcemia due to medications given for management of hypercalcemia calcium improving continue calcium carbonate, calcitriol and vit D hold sensipar. Hypomagnesemia replaced Dementia sitter if needed continue Seroquel Hypertension continue Labetelol. Anemia Hb at 7.2 No iron or vit b12 or folate def probably anemia of chronic disease. given 2 units of prbc. Severe protein calorie malnutrition BMI of 15.5, low albumin 2.4, bitemporal wasting probably due to age and dementia and decreasing oral intake OA of knees and shoulders continue tylenol. Plan/VTE VTE Prophylaxis Ordered?: Yes VS, I&O, 24H, Fishbone Vital Signs/I&O Vital Signs Date Time Temp Pulse Resp B/P (MAP) Pulse Ox O2 Delivery O2 Flow Rate FiO2 06/16/20 10:14 61 123/56 06/16/20 06:00 98.0 18 98 Room Air I&O- Last 24 Hours up to 6 AM 06/16/20 06:00 Intake Total 1260 ml Output Total 200 ml Balance 1060 ml Laboratory Data 24H LABS Laboratory Tests 2 06/16/20 05:36: Immature Granulocyte % (Auto) 0.3, Neutrophils (%) (Auto) 62.5, Lymphocytes (%) (Auto) 29.2, Monocytes (%) (Auto) 5.8H, Eosinophils (%) (Auto) 1.6, Basophils (%) (Auto) 0.6, Neutrophils # (Auto) 1.9, Lymphocytes # (Auto) 0.9L, Monocytes # (Auto) 0.2, Eosinophils # (Auto) 0.1, Basophils # (Auto) 0.0, Nucleated Red Bl ood Cells % (auto) 0.0, Anion Gap 4L, Glomerular Filtration Rate 55.6, Calcium Level 7.6L, Whole Blood Ionized Calcium 4.4L, Magnesium Level 2.2, Albumin 2.1L CBC/BMP Laboratory Tests 06/16/20 05:36 BIGG OLIVAS MD Jun 16, 2020 11:08
[2020-06-16 14:00] VITALS: BP 119/57
[2020-06-16] MEDS: QUEtiapine FUMARATE 25 MG TAB PO SCH (20:34)
[2020-06-16 22:00] VITALS: BP 122/56
[2020-06-17 06:00] VITALS: BP 129/60
[2020-06-17 06:39] LABS: BASO % 0.7 % (0.0-1.0); EOS % 1.1 % (0.0-3.0); HEMATOCRIT 31.3 % (36.0-47.0); HEMOGLOBIN 9.8 g/dl (12.0-15.5); LYMPH # 0.7 10^3/uL (1.5-5.0); MEAN CORPUSCULAR HEMOGLOBIN 29.9 pg (27.0-33.0); MEAN CORPUSCULAR HGB CONC 31.3 g/dl (32.0-36.5); MEAN CORPUSCULAR VOLUME 95.4 fl (80.0-96.0); MONO # 0.2 10^3/uL (0.0-0.8); MONO % 5.5 % (0.0-5.0); NEUTROPHILS # 1.9 10^3/uL (1.5-8.5); PLATELET COUNT, AUTOMATED 203 10^3/uL (150-450); RED BLOOD COUNT 3.28 10^6/uL (4.00-5.40); WHITE BLOOD COUNT 2.8 10^3/uL (4.0-10.0)
[2020-06-17 06:56] LABS: ALBUMIN 2.3 GM/DL (3.2-5.2); BLOOD UREA NITROGEN 22 MG/DL (7-18); CALCIUM LEVEL 8.5 MG/DL (8.8-10.2); CARBON DIOXIDE LEVEL 32 MEQ/L (21-32); CHLORIDE LEVEL 109 MEQ/L (98-107); GLOMERULAR FILTRATION RATE > 60.0 (>32); GLUCOSE, FASTING 75 MG/DL (70-100); MAGNESIUM LEVEL 2.5 MG/DL (1.8-2.4); POTASSIUM SERUM 3.9 MEQ/L (3.5-5.1); SODIUM LEVEL 144 MEQ/L (136-145)
[2020-06-17] MEDS: CALCIUM CARBONATE 500 MG CHEW U/D PO SCH (09:00)
[2020-06-17] MEDS: FERROUS SULFATE 325MG TAB PO SCH (09:36)
[2020-06-17] MEDS: CYANOCOBALAMIN 500 MCG TAB PO SCH (09:40)
[2020-06-17] MEDS: FAMOTIDINE 20 MG TAB PO SCH (09:40)
[2020-06-17] MEDS: VITAMIN D (CHOLECALCIFEROL) 400 INTERNATIONAL UNITS TAB PO SCH (09:40)
[2020-06-17] MEDS: CALCITRIOL 0.25 MCG CAP (S0169) PO SCH (09:41)
[2020-06-17] MEDS: FOLIC ACID 1 MG TAB PO SCH (09:41)
[2020-06-17 09:42] VITALS: BP 131/63
[2020-06-17] MEDS: LABETALOL 100 MG TAB PO SCH (09:42)
[2020-06-17] MEDS: MAGNESIUM OXIDE 400 MG TAB (MAG-OX) PO SCH (09:55)
[2020-06-17] MEDS ORDERED: CALC1CAP31 PO (10:17)
[2020-06-17] MEDS ORDERED: CALC200T15 PO (10:17)
[2020-06-17 10:48] LABS: VITAMIN B12 LEVEL > 2000 PG/ML (247-911)
[2020-06-17 10:58] LABS: FOLATE > 24.0 NG/ML (>5.4)
[2020-06-17 12:19] LABS: RSV AMPLIFICATION NEGATIVE (NEGATIVE)
== END 2020-06-17 14:45 | DRG 640 ==
LOC: EDBD 10:36 → M ED 10:36 → M ED INP 13:00 → M MSPAV 16:47
PROVIDERS: ADMIT Internal Medicine Nephrology; ATTEND Internal Medicine Nephrology
PROC: 30233N1 Transfusion of Nonautologous Red Blood Cells into Peripheral Vein, Percutaneous Approach (ICD-10-PCS; principal; 2020-06-14)
DX: E83.51 Hypocalcemia (principal); E43 Unspecified severe protein-calorie malnutrition; E21.0 Primary hyperparathyroidism; E83.42 Hypomagnesemia; I10 Essential (primary) hypertension; F03.90 Unspecified dementia, unspecified severity, without behavioral disturbance, psychotic disturbance, mood disturbance, and anxiety; D63.8 Anemia in other chronic diseases classified elsewhere; Z79.899 Other long term (current) drug therapy

== ENCOUNTER → 2020-06-11 | Outpatient (REF) ==
[~2020-06-11] MED LIST changes: +CALC1CAP31 PO; +CALC200T15 PO
[2020-06-11 09:17] LABS: ALBUMIN 2.4 GM/DL (3.2-5.2); CALCIUM LEVEL 5.8 MG/DL (8.8-10.2); CREATININE FOR GFR 1.02 MG/DL (0.55-1.30); PHOSPHORUS LEVEL 4.1 MG/DL (2.5-4.9); POTASSIUM SERUM 3.8 MEQ/L (3.5-5.1)
== END ==
LOC: SKLAB3 07:00
PROVIDERS: ATTEND Internal Medicine
DX: N17.9 Acute kidney failure, unspecified (principal)

== ENCOUNTER → 2020-06-12 | Outpatient (REF) ==
[~2020-06-12] MED LIST changes: +CALC1CAP31 PO; +CALC200T15 PO; +MAGN400C2 PO; +VITA500T40 PO
== END ==
LOC: SKLAB3 07:00
PROVIDERS: ATTEND Internal Medicine
DX: Z53.9 Procedure and treatment not carried out, unspecified reason (principal)

== ENCOUNTER → 2020-06-19 | Outpatient (REF) | LOC: SKLAB7 07:00 | PROVIDERS: ATTEND Internal Medicine | DX: Z11.52 Encounter for screening for COVID-19 (principal) ==

== ENCOUNTER → 2020-06-25 | Outpatient (REF) ==
[2020-06-25 11:31] LABS: BLOOD UREA NITROGEN 17 MG/DL (7-18); CALCIUM LEVEL 9.2 MG/DL (8.8-10.2); CARBON DIOXIDE LEVEL 27 MEQ/L (21-32); CHLORIDE LEVEL 108 MEQ/L (98-107); CREATININE FOR GFR 0.86 MG/DL (0.55-1.30); GLOMERULAR FILTRATION RATE > 60.0 (>32); GLUCOSE, FASTING 96 MG/DL (70-100); MAGNESIUM LEVEL 1.8 MG/DL (1.8-2.4); POTASSIUM SERUM 3.9 MEQ/L (3.5-5.1); SODIUM LEVEL 142 MEQ/L (136-145)
== END ==
LOC: SKLAB2 11:03
PROVIDERS: ATTEND Internal Medicine
DX: I10 Essential (primary) hypertension (principal); E83.52 Hypercalcemia

== ENCOUNTER → 2020-06-26 | Outpatient (REF) | LOC: SKLAB3 07:00 | PROVIDERS: ATTEND Internal Medicine | DX: Z20.822 Contact with and (suspected) exposure to COVID-19 (principal) ==

== ENCOUNTER → 2020-07-02 | Outpatient (REF) | payer MEDICARE, MEDICAID ==
[~2020-07-02] MED LIST changes: -MAG400TA PO; +MAGN400T35 PO; -QUET1TAB7 PO; +QUET25TA3 PO
[2020-07-02 10:58] LABS: ALBUMIN 2.1 GM/DL (3.2-5.2); ALT/SGPT 14 U/L (12-78); BILIRUBIN,TOTAL 0.2 MG/DL (0.2-1.0); BLOOD UREA NITROGEN 18 MG/DL (7-18); CALCIUM LEVEL 8.8 MG/DL (8.8-10.2); CARBON DIOXIDE LEVEL 24 MEQ/L (21-32); CHLORIDE LEVEL 112 MEQ/L (98-107); CREATININE FOR GFR 0.77 MG/DL (0.55-1.30); GLOMERULAR FILTRATION RATE > 60.0 (>32); GLUCOSE, FASTING 94 MG/DL (70-100); POTASSIUM SERUM 3.3 MEQ/L (3.5-5.1); SODIUM LEVEL 145 MEQ/L (136-145); TOTAL PROTEIN 5.2 GM/DL (6.4-8.2)
== END ==
LOC: SKLAB3 07:08
PROVIDERS: ATTEND Internal Medicine
DX: I11.0 Hypertensive heart disease with heart failure (principal); I50.9 Heart failure, unspecified

== ENCOUNTER → 2020-07-03 | Outpatient (REF) | payer MEDICARE, MEDICAID | LOC: SKLAB3 07:00 | PROVIDERS: ATTEND Internal Medicine | DX: Z20.822 Contact with and (suspected) exposure to COVID-19 (principal) ==

== ENCOUNTER → 2020-07-05 | Outpatient (REF) | payer MEDICARE, MEDICAID ==
[2020-07-05 08:55] LABS: HEMATOCRIT 28.6 % (36.0-47.0); HEMOGLOBIN 9.1 g/dl (12.0-15.5); MEAN CORPUSCULAR HEMOGLOBIN 31.8 pg (27.0-33.0); MEAN CORPUSCULAR HGB CONC 31.8 g/dl (32.0-36.5); PLATELET COUNT, AUTOMATED 204 10^3/uL (150-450); RED BLOOD COUNT 2.86 10^6/uL (4.00-5.40); WHITE BLOOD COUNT 2.9 10^3/uL (4.0-10.0)
[2020-07-05 09:27] LABS: THYROID STIMULATING HORMONE 4.59 uIU/ML (0.358-3.740)
[2020-07-05 09:31] LABS: CORTISOL AM 16.3 UG/DL (4.3-22.4)
== END ==
LOC: SKLAB3 07:00
PROVIDERS: ATTEND Internal Medicine
DX: R63.5 Abnormal weight gain (principal)

== ENCOUNTER → 2020-07-09 | Outpatient (CLI) | payer MEDICARE ==
--- NOTE | 2020-07-10 09:09 | ECHO ---
DATE OF PROCEDURE: 07/09/2020 Age: 84 Gender: Female Height: 165 cm Weight: 63 kg REFERRING PHYSICIAN: BETH Le INDICATION: Murmur and edema. MEASUREMENTS: IVS 1.4 cm LV 4.2 cm LVPW 1.3 cm LA 4.1 cm Aorta 2.9 cm Left atrium volume index 26 IVC 1.6 cm Mitral E wave velocity 63 Mitral A wave 80 E prime septal 5.8 E prime lateral 7.1 FINDINGS: This study is of good technical quality. Underlying sinus rhythm. Normal LV size with mild LVH and normal LV systolic function. Estimated LVEF approximately 60%. Right ventricle has also normal size and systolic function. Left atrium is at least mildly enlarged. The right atrium appears normal. Aortic valve is sclerotic, but it has three cusps and preserved mobility. There are also mild degenerative abnormalities of the mitral valve with mitral annular calcifications. Mobility of leaflets is preserved. Tricuspid and pulmonic valves appear normal. No pericardial effusion is noted. Inferior vena cava has normal size. The aortic root is normal. The aortic arch and abdominal aorta were not seen. Doppler interrogation of the aortic valve reveals no significant stenosis and trivial insufficiency. There is also mild mitral and tricuspid insufficiency. Calculated pulmonary artery pressure is around 30 mmHg, which corresponds to borderline pulmonary hypertension. Mitral inflow pattern and tissue Doppler imaging of the mitral annulus revealed grade 1 diastolic dysfunction. CONCLUSIONS: 1. Study is of good technical quality, underlying sinus rhythm. 2. Normal LV size with mild LVH, preserved LV systolic function, and grade 1 diastolic dysfunction. 3. Aortic sclerosis with no significant stenosis and mild insufficiency. 4. Mild mitral and tricuspid insufficiency. 5. Likely normal central venous pressure and borderline pulmonary hypertension. MTDD
== END ==
LOC: M CARPUL 09:43
PROVIDERS: ATTEND Nurse Practitioner Family
DX: R60.9 Edema, unspecified (principal); R01.1 Cardiac murmur, unspecified; I35.8 Other nonrheumatic aortic valve disorders

== ENCOUNTER → 2020-07-09 | Outpatient (REF) | payer MEDICAID, MEDICARE ==
[2020-07-09 09:48] LABS: BLOOD UREA NITROGEN 17 MG/DL (7-18); CALCIUM LEVEL 9.4 MG/DL (8.8-10.2); CARBON DIOXIDE LEVEL 28 MEQ/L (21-32); CHLORIDE LEVEL 107 MEQ/L (98-107); CREATININE FOR GFR 0.81 MG/DL (0.55-1.30); GLOMERULAR FILTRATION RATE > 60.0 (>32); GLUCOSE, FASTING 96 MG/DL (70-100); NT-PRO BNP 2330 PG/ML (<450); POTASSIUM SERUM 3.7 MEQ/L (3.5-5.1); SODIUM LEVEL 146 MEQ/L (136-145)
== END ==
LOC: SKLAB3 07:00
PROVIDERS: ATTEND Internal Medicine
DX: E87.6 Hypokalemia (principal); I50.9 Heart failure, unspecified

== ENCOUNTER → 2020-07-10 | Outpatient (REF) | payer MEDICARE, MEDICAID | LOC: SKLAB3 14:59 | PROVIDERS: ATTEND Internal Medicine | DX: Z20.822 Contact with and (suspected) exposure to COVID-19 (principal) ==

== ENCOUNTER → 2020-07-17 | Outpatient (REF) | payer MEDICARE, MEDICAID | LOC: SKLAB3 07:00 | PROVIDERS: ATTEND Internal Medicine | DX: Z11.52 Encounter for screening for COVID-19 (principal) ==

== ENCOUNTER → 2020-07-24 | Outpatient (REF) | payer MEDICARE, MEDICAID | LOC: SKLAB3 11:30 | PROVIDERS: ATTEND Internal Medicine | DX: Z20.822 Contact with and (suspected) exposure to COVID-19 (principal) ==

== ENCOUNTER → 2020-07-26 | Outpatient (REF) | payer MEDICARE, MEDICAID ==
[2020-07-26 09:54] LABS: BLOOD UREA NITROGEN 20 MG/DL (7-18); CARBON DIOXIDE LEVEL 27 MEQ/L (21-32); CHLORIDE LEVEL 109 MEQ/L (98-107); CREATININE FOR GFR 0.83 MG/DL (0.55-1.30); GLOMERULAR FILTRATION RATE > 60.0 (>32); GLUCOSE, FASTING 85 MG/DL (70-100); NT-PRO BNP 1533 PG/ML (<450); POTASSIUM SERUM 4.5 MEQ/L (3.5-5.1); SODIUM LEVEL 145 MEQ/L (136-145)
== END ==
LOC: SKLAB3 07:00
PROVIDERS: ATTEND Internal Medicine
DX: R60.9 Edema, unspecified (principal)

== ENCOUNTER → 2020-07-31 | Outpatient (REF) | payer MEDICARE, MEDICAID | LOC: SKLAB3 07:00 | PROVIDERS: ATTEND Internal Medicine | DX: Z20.822 Contact with and (suspected) exposure to COVID-19 (principal) ==

== ENCOUNTER → 2020-08-07 | Outpatient (REF) | payer MEDICARE, MEDICAID | LOC: SKLAB3 07:00 | PROVIDERS: ATTEND Internal Medicine | DX: Z20.822 Contact with and (suspected) exposure to COVID-19 (principal) ==

== ENCOUNTER → 2020-08-08 | Outpatient (REF) | payer MEDICARE, MEDICAID ==
[2020-08-08 08:50] LABS: CREATININE FOR GFR 0.99 MG/DL (0.55-1.30); GLOMERULAR FILTRATION RATE 56.8 (>32); POTASSIUM SERUM 4.3 MEQ/L (3.5-5.1)
== END ==
LOC: SKLAB3 07:00
PROVIDERS: ATTEND Internal Medicine
DX: I50.9 Heart failure, unspecified (principal)

== ENCOUNTER → 2020-08-16 | Outpatient (REF) | payer MEDICARE, MEDICAID | LOC: SKLAB3 07:00 | PROVIDERS: ATTEND Internal Medicine | DX: E83.52 Hypercalcemia (principal) ==

== ENCOUNTER → 2020-08-21 | Outpatient (REF) | payer MEDICARE, MEDICAID | LOC: SKLAB3 14:19 | PROVIDERS: ATTEND Internal Medicine | DX: Z20.822 Contact with and (suspected) exposure to COVID-19 (principal) ==

== ENCOUNTER → 2020-08-22 | Outpatient (REF) | payer MEDICARE | LOC: SKLAB3 08:00 | PROVIDERS: ATTEND Internal Medicine | DX: E21.0 Primary hyperparathyroidism (principal) ==

== ENCOUNTER → 2020-08-27 | Outpatient (REF) | payer MEDICARE, MEDICAID ==
[2020-08-27 08:39] LABS: CALCIUM LEVEL 9.9 MG/DL (8.8-10.2)
== END ==
LOC: SKLAB3 07:00
PROVIDERS: ATTEND Internal Medicine
DX: E21.3 Hyperparathyroidism, unspecified (principal)

== ENCOUNTER → 2020-08-28 | Outpatient (REF) | payer MEDICARE, MEDICAID | LOC: SKLAB3 07:00 | PROVIDERS: ATTEND Internal Medicine | DX: Z20.822 Contact with and (suspected) exposure to COVID-19 (principal) ==

== ENCOUNTER → 2020-09-05 | Outpatient (REF) | payer MEDICARE, MEDICAID | LOC: SKLAB3 07:00 | PROVIDERS: ATTEND Internal Medicine | DX: E21.3 Hyperparathyroidism, unspecified (principal) ==

== ENCOUNTER → 2020-09-12 | Outpatient (REF) | payer MEDICARE, MEDICAID | LOC: SKLAB3 08:18 | PROVIDERS: ATTEND Internal Medicine | DX: E87.5 Hyperkalemia (principal) ==

== ENCOUNTER → 2020-09-13 | Outpatient (REF) | payer MEDICARE, MEDICAID | LOC: SKLAB3 07:00 | PROVIDERS: ATTEND Internal Medicine | DX: Z20.822 Contact with and (suspected) exposure to COVID-19 (principal) ==

== ENCOUNTER → 2020-09-19 | Outpatient (REF) | payer MEDICARE, MEDICAID ==
[2020-09-19 09:49] LABS: HEMATOCRIT 32.1 % (36.0-47.0); HEMOGLOBIN 10.3 g/dl (12.0-15.5); MEAN CORPUSCULAR HEMOGLOBIN 32.2 pg (27.0-33.0); MEAN CORPUSCULAR HGB CONC 32.1 g/dl (32.0-36.5); MEAN CORPUSCULAR VOLUME 100.3 fl (80.0-96.0); PLATELET COUNT, AUTOMATED 132 10^3/uL (150-450); WHITE BLOOD COUNT 2.2 10^3/uL (4.0-10.0)
[2020-09-19 10:32] LABS: TOTAL 25(OH) VITAMIN D 25.4 NG/ML (30.0-100.0)
== END ==
LOC: SKLAB3 07:00
PROVIDERS: ATTEND Internal Medicine
DX: E83.52 Hypercalcemia (principal)

== ENCOUNTER → 2020-09-26 | Outpatient (REF) | payer MEDICARE, MEDICAID | LOC: SKLAB3 07:00 | PROVIDERS: ATTEND Internal Medicine | DX: E83.52 Hypercalcemia (principal) ==

== ENCOUNTER → 2020-09-28 | Outpatient (REF) | payer MEDICARE, MEDICAID | LOC: SKLAB3 07:00 | PROVIDERS: ATTEND Internal Medicine | DX: E83.52 Hypercalcemia (principal) ==

== ENCOUNTER → 2020-10-01 | Outpatient (REF) | payer MEDICARE, MEDICAID | LOC: SKLAB3 11:34 | PROVIDERS: ATTEND Internal Medicine | DX: E83.52 Hypercalcemia (principal) ==

== ENCOUNTER → 2020-10-08 | Outpatient (REF) | payer MEDICARE, MEDICAID | LOC: SKLAB3 07:00 | PROVIDERS: ATTEND Internal Medicine | DX: E21.3 Hyperparathyroidism, unspecified (principal) ==

== ENCOUNTER → 2020-10-15 | Outpatient (REF) | payer MEDICARE, MEDICAID | LOC: SKLAB2 13:38 | PROVIDERS: ATTEND Internal Medicine | DX: E83.52 Hypercalcemia (principal) ==

== ENCOUNTER 2020-10-22 16:39 | Inpatient (IN) | payer MEDICARE, MEDICAID ==
[~2020-10-22] VITALS: Ht 157.5 cm; Wt 55.0 kg
[~2020-10-22 16:39] MED LIST changes: -FURO20TA2 PO; -POTA1TAB14 PO
[2020-10-22] MEDS ORDERED: NS 500 ML IV ONE ×2 (17:30→18:25)
[2020-10-22 18:01] LABS: BASO % 0.5 % (0.0-1.0); EOS # 0.1 10^3/uL (0.0-0.5); EOS % 1.3 % (0.0-3.0); HEMATOCRIT 34.7 % (36.0-47.0); HEMOGLOBIN 11.3 g/dl (12.0-15.5); LYMPH # 0.8 10^3/uL (1.5-5.0); LYMPH % 19.5 % (24.0-44.0); MEAN CORPUSCULAR HEMOGLOBIN 31.2 pg (27.0-33.0); MEAN CORPUSCULAR HGB CONC 32.6 g/dl (32.0-36.5); MEAN CORPUSCULAR VOLUME 95.9 fl (80.0-96.0); MONO # 0.3 10^3/uL (0.0-0.8); MONO % 7.3 % (2.0-8.0); NEUTROPHILS # 2.7 10^3/uL (1.5-8.5); NEUTROPHILS % 71.1 % (36.0-66.0); PLATELET COUNT, AUTOMATED 162 10^3/uL (150-450); RED BLOOD COUNT 3.62 10^6/uL (4.00-5.40); WHITE BLOOD COUNT 3.9 10^3/uL (4.0-10.0)
[2020-10-22 18:21] LABS: ALBUMIN 3.8 GM/DL (3.2-5.2); BILIRUBIN,DIRECT 0.1 MG/DL (0.0-0.2); BILIRUBIN,TOTAL 0.4 MG/DL (0.2-1.0); CALCIUM LEVEL 13.7 MG/DL (8.8-10.2); CREATININE FOR GFR 1.52 MG/DL (0.55-1.30); GLOMERULAR FILTRATION RATE 34.6 (>32); TOTAL PROTEIN 7.6 GM/DL (6.4-8.2)
[2020-10-22] MEDS ORDERED: CINACALCET 30 MG TAB (SENSIPAR) PO ONE (18:35)
[2020-10-22] MEDS ORDERED: POTA1TAB14 PO (18:39)
[2020-10-22] MEDS ORDERED: CINA30TA4 PO (18:39)
[2020-10-22] MEDS ORDERED: FURO20TA2 PO (18:39)
[2020-10-22] MEDS ORDERED: FLEET ENEMA PR PRN (19:10)
[2020-10-22] MEDS ORDERED: ACETAMINOPHEN TAB 650MG DOSE (2X325MG) PO PRN (19:10)
[2020-10-22] MEDS ORDERED: BISACODYL 10 MG SUPP PR PRN (19:10)
[2020-10-22] MEDS ORDERED: MAALOX 30 ML SUSP *UDC PO PRN (19:10)
[2020-10-22] MEDS ORDERED: MOM 30ML SUSPENSION UDC PO PRN (19:10)
[2020-10-22] MEDS ORDERED: PILL CUTTER 1 EACH XX PRN (19:30)
--- NOTE | 2020-10-22 20:54 | HPEPDOC ---
[facility] Medical History & Physical Date of Admission October 22, 2020 Date of Service: October 22, 2020 Attending Physician: RAHUL PALAFOX MD History and Physical CHIEF COMPLAINT: [85 y/o female sent to the ED after abnormal blood work] HISTORY OF PRESENT ILLNESS: [Patient is a very poor historian. This is an 85 y/o female resident [facility] with a pmh of dementia, htn and primary hyperparathyroidism who presents to our ed after having a blood draw that showed a serum calcium of 14.4. Redraw performed in the ED was 13.6 and ionized calcium level was 6.6. Patient is awake and complains of being mad and bored because she is stuck in the room she is in in the emergency department. Patient thinks she is in shelter. She denies back pain, constipation, dysuria, abdominal pain, chest pain, sob, fevers, chills, cough, syncope, recent falls. Of note, patient also had elevated cr of 1.5 from baseline of .99.] PAST MEDICAL HISTORY: 1. [See HPI PAST SURGICAL HISTORY: 1. [Appendectomy]. 2. [Cholecystectomy]. 3. [Hysterectomy 4. Bowel resection 5. Lumbar laminectomy]. SOCIAL HISTORY: Unable to ascertain d/t dementia FAMILY HISTORY: Unable to ascertain d/t dementia ALLERGIES: Please see below. REVIEW OF SYSTEMS: CONSTITUTIONAL: [See HPI]. HEENT: [Denies uri sx]. CARDIOVASCULAR: [See HPI]. RESPIRATORY: [See HPI]. GASTROINTESTINAL: [See HPI]. GENITOURINARY: [See HPI]. SKIN: [Denies rash]. MUSCULOSKELETAL: [Denies back pain]. NEUROLOGICAL: [Denies paresthesias]. ENDOCRINE: [Hx of primary hyperparathyroidism]. HEMATOLOGIC/LYMPHATIC: [Denies recent epistaxis]. HOME MEDICATIONS: Please see below. PHYSICAL EXAMINATION: VITAL SIGNS: Please see below. GENERAL APPEARANCE: [This is a frail 85 y/o female. She is sitting in bed coloring and appears to be in no distress. Patient becomes upset during portions of the interview especially during review of symptoms.]. HEENT: [Patient has a large area of old appearing ecchymosis on the right side of her face. EOMI. No scleral icterus. Nares patent. Oral mucosa dry without erythema.]. CARDIOVASCULAR: [Irregular rhythm, tachy rate. No murmurs, rubs, gallops]. LUNGS: [Good air flow auscultated. No wheezes, rales, rhonchi.]. ABDOMEN: [Soft, non-tender]. MUSCULOSKELETAL: [No joint deformity noted]. EXTREMITIES: [No peripheral edema. No overlying skin changes. Pulses intact.]. NEUROLOGICAL: [Patient oriented to person only. Speech clear. No focal deficits noted.]. PSYCHIATRIC: [Labile mood, appropriate affect.]. LABORATORY DATA: See below. MICROBIOLOGY: Please see below. ASSESSMENT: [This is an 85 y/o female resident of [facility] with a pmh of dementia, htn and primary hyperparathyroidism who presents after having an elevated calcium reading at the assisted. Patient previously on calcitriol, calcium and vitamin d supplements before these labs were noted. Patient is pleasantly confused and unable to provide history, so it is difficult to tell if she is symptomatic or not.]. . PLAN: 1. [Hypercalcemia - 14.4 serum ca - Secondary to primary hyperparathyroidism. Patient's pth found to be 992 in the ED. Calcium may also be elevated due in some part to dehydration as patient is frail and likely has poor oral intake secondary to her dementia. - Patient given 1L ns bolus and one dose of sensipar in the ed. - Will begin maintenance IVF with NS as well as calcitonin sc q12h - Will trend bmp q6h for now - Holding all calcium and vit d supplementation - Dr. Miguel Otto, nephrology, has been consulted regarding the calcium of 14.4 and will see this patient as a consult. Assistance is greatly appreciated. - Will admit to pcu with tele 2. LUISANA - Pre-renal. Patient is obviously dehydrated, will benefit from IVF. - Trending bmp as stated 3. HTN - Continue labetalol - Will hold furosemide d/t dehydration and hypercalcemia 4. Dementia - Continue quetiapine - Can provide sitter if necessary 5. DVT prophylaxis - Heparin ordered]. Vital Signs Vital Signs Date Time Temp Pulse Resp B/P (MAP) Pulse Ox O2 Delivery O2 Flow Rate FiO2 10/22/20 17:56 96.7 85 18 140/74 (96) Room Air Laboratory Data Labs 24H Laboratory Tests 2 10/22/20 17:27: Immature Granulocyte % (Auto) 0.3, Neutrophils (%) (Auto) 71.1H, Lymphocytes (%) (Auto) 19.5L, Monocytes (%) (Auto) 7.3, Eosinophils (%) (Auto) 1.3, Basophils (%) (Auto) 0.5, Neutrophils # (Auto) 2.7, Lymphocytes # (Auto) 0.8L, Monocytes # (Auto) 0.3, Eosinophils # (Auto) 0.1, Basophils # (Auto) 0.0, Nucleated Red Blood Cells % (auto) 0.0, Anion Gap 7L, Glomerular Filtration Rate 34.6, Calcium Level 13.7H, Total Bilirubin 0.4, Direct Bilirubin 0.1, Aspartate Amino Transf (AST/SGOT) 13, Alanine Aminotransferase (ALT/SGPT) 16, Alkaline Phosphatase 82, Total Protein 7.6, Albumin 3.8, Albumin/Globulin Ratio 1.0L, Amylase Level 83, Lipase 175, Parathyroid Hormone (Intact) 992.0H 10/22/20 17:31: Whole Blood Ionized Calcium 6.6*H CBC/BMP Laboratory Tests 10/22/20 17:27 Microbiology Microbiology 10/22/20 Respiratory Virus Panel (PCR) ([facility]), Received Pending Home Medications Scheduled Cinacalcet (Sensipar) 30 Mg Tablet, 30 MG PO BID Cyanocobalamin (Vitamin B-12) (Vitamin B-12) 500 Mcg Tablet, 500 MCG PO DAILY Famotidine (Famotidine) 20 Mg Tablet, 20 MG PO DAILY Ferrous Sulfate (Iron) 325 Mg Tablet, 325 MG PO DAILY Folic Acid (Folic Acid) 1 Mg Tablet, 1 MG PO DAILY Furosemide (Furosemide) 20 Mg Tablet, 20 MG PO DAILY Labetalol HCl (Labetalol HCl) 100 Mg Tablet, 100 MG PO BID Magnesium Oxide (Magnesium) 400 Mg Capsule, 800 MG PO BID Potassium Chloride (Potassium Chloride) 20 Meq Tablet.er, 20 MEQ PO DAILY Quetiapine Fumarate (Quetiapine Fumarate) 25 Mg Tablet, 25 MG PO QHS Vitamin D (Vitamin D3) 10 Mcg Tablet, 600 UNITS PO DAILY Scheduled PRN Acetaminophen (Acetaminophen) 325 Mg Tablet, 650 MG PO Q4H PRN for PAIN Bisacodyl (Dulcolax) 10 Mg Supp.rect, 10 MG MN DAILY PRN for CONSTIPATION Docusate Sodium (Colace) 100 Mg Capsule, 200 MG PO QHS PRN for CONSTIPATION Magnesium Hydroxide (Milk of Magnesia) 400 Mg/5 Ml Oral.susp, 10 ML PO DAILY PRN for CONSTIPATION Sodium Phosphate,Snyder-Dibasic (Enema) 133 Ml Enema, 1 ANNA MN DAILY PRN for CONSTIPATION Allergies Coded Allergies: No Known Drug Allergies (Verified Allergy, Unknown, 05/07/20) A-FIB/CHADSVASC A-FIB History Current/History of A-Fib/PAF?: No Attending Note Attending Note time of service 830pm Ms Carl is an 85 yr old [place] resident w a hx of dementia, primary hyperPTH, HFpEF & essential HTN who was sent for management of hypercalcemia. The patient was alert, reports having pain all over her body but was not able to provide additional details relevant to her HPI. Her EKG didnt show a shortened QTc or Cheung waves. She will be admitted for management of hypercalcemia and LUISANA to PCU w telemetry. We will start IVF, check TSH & Phosph & trend Ca++ w albumin. Because her serum Ca is > 12 and it is difficult to determine if she is having symptoms that would require administration of zolendronic acid, we will discuss the case with Nephrology. For HTN we will c/w Labetalol and start amlodipine while her lasix is on hold bc of LUISANA. Rest per LORENZA Israel&P CEFERINO CHANEL October 22, 2020 20:54 RAHUL PALAFOX MD October 22, 2020 21:47
[2020-10-22 22:33] LABS: PHOSPHORUS LEVEL 3.5 MG/DL (2.5-4.9); THYROID STIMULATING HORMONE 2.13 uIU/ML (0.358-3.740)
[2020-10-22 23:21] VITALS: BP 179/81
[2020-10-22] MEDS: NS 1,000 ML IV SCH (23:45)
[2020-10-22] MEDS: LABETALOL 100MG TAB PO SCH (23:46)
[2020-10-22] MEDS: QUEtiapine FUMARATE 25 MG TAB PO SCH (23:46)
[2020-10-22] MEDS: DOCUSATE SODIUM 100MG CAPSULE PO SCH (23:46)
[2020-10-22] MEDS: ACETAMINOPHEN TAB 650MG DOSE (2X325MG) PO SCH (23:46)
[2020-10-23] VITALS (7 sets, daily range): BP systolic 115–179; BP diastolic 60–81
[2020-10-23 01:53] LABS: CALCIUM LEVEL 12.8 MG/DL (8.8-10.2); CREATININE FOR GFR 1.43 MG/DL (0.55-1.30); GLOMERULAR FILTRATION RATE 37.1 (>32); POTASSIUM SERUM 3.5 MEQ/L (3.5-5.1)
[2020-10-23] MEDS: CALCITONIN SALMON (MIACALCIN) 400INTERNATIONAL UNITS/2ML INJ (J0630) SQ SCH ×3 (02:02→22:52)
[2020-10-23] MEDS: CINACALCET 30 MG TAB (SENSIPAR) PO SCH ×3 (05:33→21:27)
[2020-10-23] MEDS: NS 1,000 ML IV SCH ×2 (05:33→09:13)
[2020-10-23] MEDS: ACETAMINOPHEN TAB 650MG DOSE (2X325MG) PO SCH ×3 (05:35→21:27)
--- NOTE | 2020-10-23 07:45 | ECGEPIP ---
[facility] - ED Test Date: 2020-10-22 Pat Name: GAVIOTA ANDRADE Department: Room: - Gender: Female Rotor Balancer: ANNAMARIA : 1935 Requested By: MELODY Mars Order Number: [id number] Reading MD: Stan Mccullough Measurements Intervals [place] Rate: 86 P: 66 [place]: 180 QRS: 25 QRSD: 100 T: 24 QT: 356 QTc: 426 Interpretive Statements Sinus rhythm with frequent premature ventricular complexes Moderate voltage criteria for LVH, may be normal variant ( Sokolow-Chaves , Mikhail product ) Nonspecific ST and T wave abnormality Electronically Signed on 10-23-2020 7:44:33 EDT by Stan Mccullough
[2020-10-23 07:46] LABS: ALBUMIN 3.8 GM/DL (3.2-5.2); CALCIUM LEVEL 12.7 MG/DL (8.8-10.2); CREATININE FOR GFR 1.41 MG/DL (0.55-1.30); GLOMERULAR FILTRATION RATE 37.7 (>32); POTASSIUM SERUM 3.5 MEQ/L (3.5-5.1)
[2020-10-23] MEDS: HEPARIN SOD (PORCINE) 5000UNITS/ML 1ML VIAL/SYRINGE SC SCH ×2 (08:10→21:27)
[2020-10-23] MEDS: POTASSIUM CHLORIDE 10 MEQ SR TABLET PO SCH (08:11)
[2020-10-23] MEDS: FOLIC ACID 1 MG TAB PO SCH (08:11)
[2020-10-23] MEDS: DOCUSATE SODIUM 100MG CAPSULE PO SCH ×2 (08:12→21:27)
[2020-10-23] MEDS: FERROUS SULFATE 325MG TAB PO SCH (08:12)
[2020-10-23] MEDS: CYANOCOBALAMIN 500 MCG TAB PO SCH (08:12)
[2020-10-23] MEDS: LABETALOL 100MG TAB PO SCH ×2 (08:12→21:28)
--- NOTE | 2020-10-23 08:38 | IPNPDOC ---
Text Note Date of Service The patient was seen on 10/23/20. NOTE Subjective: Patient seen and examined at bedside. No acute overnight events reported. Patient has no new medical complaints this morning. She is requesting a [employer]. Objective: General: NAD, lying comfortably in bed, pleasantly confused HEENT: NC/AT, EOMI Lungs: CTA B/L Heart: +S1S2, RRR Abd: soft, NT, +BS Ext: no edema A/P: 85 F resident of [facility] with PMHx including dementia, htn and primary hyperparathyroidism who presents after having an elevated calcium reading at the [facility]. Patient previously on calcitriol, calcium and vitamin d supplements before these labs were noted. #Hypercalcemia - 14.4 serum ca on admission - PTH found to be 992 in the ED. - Patient given 1L ns bolus and one dose of sensipar in the ed. - continue maintenance IVF with NS as well as calcitonin sc q12h - Will trend bmp q6h for now - follow as per nephrology - assistance appreciated - continue telemetry #LUISANA - pre-renal , slowly improving with iv fluids #HTN - Continue labetalol, norvasc added overnight - Will hold furosemide d/t dehydration and hypercalcemia #Dementia - Continue quetiapine #DVT prophylaxis - Heparin SC previously ordered VS,Fishbone, I+O VS, Fishbone, I+O Laboratory Tests 10/22/20 17:27 10/23/20 01:19 10/23/20 07:10 Vital Signs Date Time Temp Pulse Resp B/P (MAP) Pulse Ox O2 Delivery O2 Flow Rate FiO2 10/23/20 08:12 81 136/65 10/23/20 08:00 96.9 16 94 Room Air I&O- Last 24 Hours up to 6 AM 10/23/20 06:00 Intake Total 1240 ml Balance 1240 ml SALLY BUI MD October 23, 2020 08:38
[2020-10-23] MEDS ORDERED: FAMOTIDINE 20 MG TAB PO SCH (09:00)
[2020-10-23] MEDS ORDERED: VITAMIN D (CHOLECALCIFEROL) 400 INTERNATIONAL UNITS TAB PO SCH (09:00)
[2020-10-23] MEDS ORDERED: FUROSEMIDE 20 MG TAB PO SCH (09:00)
[2020-10-23 13:43] LABS: CALCIUM LEVEL 12.1 MG/DL (8.8-10.2); CREATININE FOR GFR 1.44 MG/DL (0.55-1.30); GLOMERULAR FILTRATION RATE 36.8 (>32); POTASSIUM SERUM 3.6 MEQ/L (3.5-5.1)
[2020-10-23 19:40] LABS: CALCIUM LEVEL 10.9 MG/DL (8.8-10.2); CREATININE FOR GFR 1.49 MG/DL (0.55-1.30); GLOMERULAR FILTRATION RATE 35.4 (>32); POTASSIUM SERUM 3.6 MEQ/L (3.5-5.1)
[2020-10-23] MEDS: QUEtiapine FUMARATE 25 MG TAB PO SCH (21:27)
[2020-10-24] VITALS: BP 128/54
[2020-10-24 04:00] VITALS: BP 125/78
[2020-10-24 05:06] LABS: HEMATOCRIT 29.4 % (36.0-47.0); HEMOGLOBIN 9.7 g/dl (12.0-15.5); MEAN CORPUSCULAR HEMOGLOBIN 31.6 pg (27.0-33.0); MEAN CORPUSCULAR VOLUME 95.8 fl (80.0-96.0); PLATELET COUNT, AUTOMATED 141 10^3/uL (150-450); RED BLOOD COUNT 3.07 10^6/uL (4.00-5.40); WHITE BLOOD COUNT 3.6 10^3/uL (4.0-10.0)
[2020-10-24] MEDS: NS 1,000 ML IV SCH ×3 (05:23→21:36)
[2020-10-24] MEDS: ACETAMINOPHEN TAB 650MG DOSE (2X325MG) PO SCH ×3 (05:24→21:38)
[2020-10-24 05:26] LABS: MAGNESIUM LEVEL 1.4 MG/DL (1.8-2.4)
[2020-10-24 07:13] LABS: ALBUMIN 3.4 GM/DL (3.2-5.2); CALCIUM LEVEL 10.7 MG/DL (8.8-10.2); CREATININE FOR GFR 1.22 MG/DL (0.55-1.30); GLOMERULAR FILTRATION RATE 44.6 (>32); PHOSPHORUS LEVEL 2.1 MG/DL (2.5-4.9); POTASSIUM SERUM 3.3 MEQ/L (3.5-5.1)
[2020-10-24 08:30] VITALS: BP 132/64
[2020-10-24] MEDS: FOLIC ACID 1 MG TAB PO SCH (08:39)
[2020-10-24] MEDS: CALCITONIN SALMON (MIACALCIN) 400INTERNATIONAL UNITS/2ML INJ (J0630) SQ SCH ×2 (08:39→21:35)
[2020-10-24] MEDS: FERROUS SULFATE 325MG TAB PO SCH (08:39)
[2020-10-24] MEDS: CINACALCET 30 MG TAB (SENSIPAR) PO SCH ×2 (08:39→21:36)
[2020-10-24] MEDS: HEPARIN SOD (PORCINE) 5000UNITS/ML 1ML VIAL/SYRINGE SC SCH ×2 (08:39→21:35)
[2020-10-24] MEDS: CYANOCOBALAMIN 500 MCG TAB PO SCH (08:40)
[2020-10-24] MEDS: DOCUSATE SODIUM 100MG CAPSULE PO SCH ×2 (08:40→21:35)
[2020-10-24] MEDS: POTASSIUM CHLORIDE 10 MEQ SR TABLET PO SCH (08:40)
[2020-10-24] MEDS: LABETALOL 100MG TAB PO SCH ×2 (08:41→21:36)
--- NOTE | 2020-10-24 08:58 | CR ---
NEPHROLOGY CONSULTATION DATE: 10/23/2020 REASON FOR CONSULTATION: Hypercalcemia. HISTORY OF PRESENT ILLNESS: Mrs. Carl is an 85-year-old female with known history of dementia, primary hyperparathyroidism and hypertension. She is a assisted resident from [facility], who was sent to the Emergency Room yesterday due to abnormal labs. Apparently her calcium level was noticed to be 14.4 and her creatinine was 1.5. Patient was admitted and I discussed the case with the admitting physician at the time of admission. I have seen the patient this morning. PAST MEDICAL HISTORY: Significant for: 1. Dementia. 2. Hypertension. 3. Primary hyperparathyroidism. 4. Mild chronic kidney disease. PAST SURGICAL HISTORY: Significant for: 1. Appendectomy. 2. Cholecystectomy. 3. Hysterectomy. 4. Bowel resection. 5. Lumbar laminectomy. FAMILY HISTORY: Patient is unable to provide any accurate information as she told me that she has her mother and father living while that is not true. PERSONAL AND SOCIAL HISTORY: Patient is a currently assisted resident without any smoking, alcohol or drug use. ALLERGIES: She has no known drug allergies. MEDICATIONS: Her assisted medications include: 1. Cinacalcet 30 mg b.i.d. 2. Vitamin B12 500 mcg daily. 3. Famotidine 20 mg daily. 4. Ferrous sulfate 325 mg daily. 5. Folic acid 1 mg daily. 6. Furosemide 20 mg daily. 7. Labetalol 100 mg b.i.d. 8. Magnesium oxide 800 mg b.i.d. 9. Potassium chloride 20 mEq daily. 10.Quetiapine 25 mg at bedtime. 11.Vitamin D 600 units daily. 12.She also uses Tylenol as needed. 13.Fleet enema as needed for constipation. REVIEW OF SYSTEMS: Not possible as patient is unable to provide accurate information. She has significant dementia to even know the day, date or time. PHYSICAL EXAMINATION: GENERAL: An elderly female lying in bed without any acute distress. She is able to answer questions, however, not accurately. VITALS: Temperature 96.8 degrees Fahrenheit, heart rate 80 per minute, respiratory rate 16 per minute, blood pressure 136/80 mmHg and oxygen saturation 94% on room air. HEENT: Head is atraumatic. She has lower lip deficit on the right side due to probably prior surgery with a scar. She has a large bruise on her right cheek, which seems to be a result of trauma several days ago. Neck is supple and without JVD or thyroid enlargement. LUNGS: Clear to auscultation. HEART: Sounds are regular. ABDOMEN: Soft and nontender. Bowel sounds are normal. EXTREMITIES: Without any cyanosis or clubbing. She has no peripheral edema. NEUROLOGIC: She is moving all her limbs and is awake, but not oriented. LABORATORY DATA: Her labs on October 22 showed WBC 3.9, hemoglobin 11.3, hematocrit 34.7. Her initial calcium level on admission was 13.7, while prior to admission it was 14.4. Intact PTH level was 992. Sodium 140, potassium 4.0, BUN 28 and creatinine 1.52. TSH 2.13. This morning, her calcium is down to 12.7, BUN 25 and creatinine 1.41, sodium 142 and potassium 3.5. PROBLEMS: 1. Hypercalcemia: Patient has severe primary hyperparathyroidism. Her intact PTH level was 992. She does have a history of primary hyperparathyroidism, however, does not seem to have any investigations done so far. She has advanced dementia and is unable to provide any information about her prior investigations. I will get a nuclear medicine parathyroid scan to look for parathyroid adenoma. I am not sure if she will be a candidate for surgery due to her dementia. At this point, I will recommend to continue with I.V. normal saline, which is helping to correct her calcium level to a certain extent. We can also increase the dose of Cinacalcet to see if that would help, though not likely to correct the problem as if she has adenoma, she will need surgical resection. I have discussed with the hospitalist service and we will try to reach the family if there is any family member available. I agree with Calcitonin if it is available 200 units subcutaneously every 12 hours, though again that is unlikely to correct the problem. 2. Acute renal failure: Most likely caused by dehydration and likely to improve with I.V. Sodium chloride saline. I will recommend to continue with the same. 3. Hypokalemia: Potassium level is slightly low and patient is receiving I.V. normal saline. I agree with ongoing potassium supplement. Thank you for involving me in the care of Ms. Carl. I will follow her along with you.
--- NOTE | 2020-10-24 10:40 | IPNPDOC ---
Text Note Date of Service The patient was seen on 10/24/20. NOTE Subjective: Patient seen and examined at bedside. No acute overnight events reported. Patient has no new medical complaints this morning. Objective: General: NAD, lying comfortably in bed, pleasantly confused HEENT: NC/AT, EOMI Lungs: CTA B/L Heart: +S1S2, RRR Abd: soft, NT, +BS Ext: no edema A/P: 85 F resident of [facility] with PMHx including dementia, htn and primary hyperpara thyroidism who presents after having an elevated calcium reading at the residential. Patient previously on calcitriol, calcium and vitamin d supplements before these labs were noted. #Hypercalcemia - much improved - 14.4 serum ca on admission - PTH found to be 992 in the ED. - NM scan pending - Patient given 1L ns bolus and one dose of sensipar in the ed. - continue maintenance IVF with NS as well as calcitonin sc q12h - follow as per nephrology - assistance appreciated #LUISANA - pre-renal - continues to improve - on IV fluids #HTN - Continue labetalol, norvasc added overnight - furosemide on hold #Dementia - Continue quetiapine #DVT prophylaxis - Heparin SC previously ordered VS,Fishbone, I+O VS, Fishbone, I+O Laboratory Tests 10/23/20 13:05 10/23/20 19:06 10/24/20 04:57 Vital Signs Date Time Temp Pulse Resp B/P (MAP) Pulse Ox O2 Delivery O2 Flow Rate FiO2 10/24/20 08:41 90 132/64 10/24/20 08:30 97.9 20 97 Room Air I&O- Last 24 Hours up to 6 AM 10/24/20 05:59 Intake Total 2850 ml Output Total 1200 ml Balance 1650 ml SALLY BUI MD October 24, 2020 10:40
[2020-10-24] MEDS ORDERED: MAG SULF 1GM/100ML (MAG RUN) 1 GM in IV 1 EA IV ONE (11:00)
--- NOTE | 2020-10-24 14:11 | REP ---
INDICATION: primary hyperparathyroidism. COMPARISON: None. TECHNIQUE/RADIOTRACER AND DOSE: Following the intravenous administration of 26.4 mCi technetium 99 M sestamibi, 15 minutes and 3 hour delayed images are performed of the neck, including SPECT images. FINDINGS: The initial views show somewhat asymmetric uptake throughout the left thyroid bed compared to the right. On delayed images there is minimal symmetrical residual activity in each thyroid bed. IMPRESSION: There is no compelling scintigraphic evidence of parathyroid adenoma. <Electronically signed by Moe Urbano > 10/24/20 [id number]
[2020-10-24 16:00] VITALS: BP 137/69
[2020-10-24 18:00] VITALS: BP 135/66
--- NOTE | 2020-10-24 19:47 | IPN ---
NEPHROLOGY PROGRESS NOTE DATE: 10/24/2020 SUBJECTIVE: Ms. Carl is seen this morning on her bedside. She is feeling about the same. She denies any nausea or vomiting. She has no fever or chills. No dyspnea or chest pain reported. PHYSICAL EXAMINATION: Temperature 97.9 degrees Fahrenheit, heart rate 78 per minute, respiratory rate 20 per minute, blood pressure 132/64 mmHg, oxygen saturation 97% on room air. INTAKE AND OUTPUT: Intake and output records from yesterday show total intake 2600 and output 1200. HEAD: Atraumatic. NECK: Supple and without jugular venous distention (JVD) or thyroid enlargement. Neck veins are not abnormally distended. HEART SOUNDS: Regular. LUNGS: Clear to auscultation. ABDOMEN: Soft and nontender. Bowel sounds are normal. EXTREMITIES: Without any cyanosis or clubbing. NEUROLOGIC: She is not oriented and otherwise does not have any focal deficit. LABORATORY STUDIES: Today's labs show WBC 3.6, hemoglobin 9.7, hematocrit 29.4, platelets 141. Sodium 145, potassium 3.3, chloride 116, CO2 25, BUN down to 20, creatinine 1.22, calcium level has improved to 10.7 and phosphorous is 2.1, magnesium level 1.4. PROBLEMS: 1. Hypercalcemia. Her calcium level is improving nicely with intravenous (IV) fluid. We are waiting for her nuclear medicine thyroid scan which has been done this morning. The results have just come back and show that there is no compelling evidence for a parathyroid adenoma. 2. Acute kidney injury superimposed on chronic kidney disease. Kidney function has improved with IV fluid hydration. She seems to be reasonably well-hydrated now. She continues with normal saline at 100 mL/hour. 3. Hypomagnesemia. Patient is being given one dose of magnesium sulfate 1 gram today and magnesium level should be repeated again today. 4. Primary hyperparathyroidism. Patient did have an intact parathyroid hormone (PTH) level of 992 on admission in the setting of very high calcium. She has been on cinacalcet as an outpatient. Her nuclear medicine parathyroid scan did not show any compelling evidence of a parathyroid adenoma. We will try to increase her cinacalcet dose. If she can tolerate it, we will make it 60 mg twice a day and see how she does.
[2020-10-24] MEDS: QUEtiapine FUMARATE 25 MG TAB PO SCH (21:35)
[2020-10-24 22:00] VITALS: BP 128/68
[2020-10-25 06:00] VITALS: BP 119/65
[2020-10-25] MEDS: ACETAMINOPHEN TAB 650MG DOSE (2X325MG) PO SCH ×3 (06:26→21:21)
[2020-10-25 06:32] LABS: HEMATOCRIT 27.7 % (36.0-47.0); HEMOGLOBIN 9.1 g/dl (12.0-15.5); MEAN CORPUSCULAR HEMOGLOBIN 31.6 pg (27.0-33.0); MEAN CORPUSCULAR HGB CONC 32.9 g/dl (32.0-36.5); MEAN CORPUSCULAR VOLUME 96.2 fl (80.0-96.0); PLATELET COUNT, AUTOMATED 139 10^3/uL (150-450); RED BLOOD COUNT 2.88 10^6/uL (4.00-5.40); WHITE BLOOD COUNT 3.4 10^3/uL (4.0-10.0)
[2020-10-25 06:49] LABS: MAGNESIUM LEVEL 1.4 MG/DL (1.8-2.4)
[2020-10-25 07:02] LABS: ALBUMIN 3.5 GM/DL (3.2-5.2); CALCIUM LEVEL 11.3 MG/DL (8.8-10.2); CREATININE FOR GFR 1.21 MG/DL (0.55-1.30); PHOSPHORUS LEVEL 2.3 MG/DL (2.5-4.9); POTASSIUM SERUM 3.3 MEQ/L (3.5-5.1)
[2020-10-25] MEDS: LABETALOL 100MG TAB PO SCH ×2 (08:45→21:22)
[2020-10-25] MEDS: CALCITONIN SALMON (MIACALCIN) 400INTERNATIONAL UNITS/2ML INJ (J0630) SQ SCH ×2 (08:45→21:22)
[2020-10-25] MEDS: CYANOCOBALAMIN 500 MCG TAB PO SCH (08:46)
[2020-10-25] MEDS: FERROUS SULFATE 325MG TAB PO SCH (08:46)
[2020-10-25] MEDS: CINACALCET 30 MG TAB (SENSIPAR) PO SCH ×2 (08:47→21:20)
[2020-10-25] MEDS: POTASSIUM CHLORIDE 10 MEQ SR TABLET PO SCH ×2 (08:47→21:21)
[2020-10-25] MEDS: DOCUSATE SODIUM 100MG CAPSULE PO SCH ×2 (08:48→21:00)
[2020-10-25] MEDS: FOLIC ACID 1 MG TAB PO SCH (08:48)
[2020-10-25] MEDS: HEPARIN SOD (PORCINE) 5000UNITS/ML 1ML VIAL/SYRINGE SC SCH ×2 (08:49→21:22)
--- NOTE | 2020-10-25 10:31 | IPNPDOC ---
Text Note Date of Service The patient was seen on 10/25/20. NOTE Subjective: No acute overnight events reported. Patient has no new medical complaints this morning. Objective: General: NAD, lying comfortably in bed, pleasantly confused HEENT: NC/AT, EOMI Lungs: CTA B/L Heart: +S1S2, RRR Abd: soft, NT, +BS Ext: no edema A/P: 85 F resident of [facility] with PMHx including dementia, htn and primary hyperparathyroidism who presents after having an elevated calcium reading at the skilled nursing. Patient previously on calcitriol, calcium and vitamin d supplements before these labs were noted. #Hypercalcemia - 14.4 serum ca on admission - PTH found to be 992 in the ED. - NM scan unrevealing - Patient given 1L ns bolus and one dose of sensipar in the ed. - continue maintenance IVF with NS as well as calcitonin 60 mg PO BID - follow as per nephrology - assistance appreciated #LUISANA - pre-renal - continues to improve - on IV fluids #HTN - Continue labetalol, norvasc added overnight - furosemide on hold #Dementia - Continue quetiapine #DVT prophylaxis - Heparin SC previously ordered VS,Fishbone, I+O VS, Fishbone, I+O Laboratory Tests 10/25/20 05:59 Vital Signs Date Time Temp Pulse Resp B/P (MAP) Pulse Ox O2 Delivery O2 Flow Rate FiO2 10/25/20 08:45 71 119/65 10/25/20 06:00 98.6 18 96 Room Air I&O- Last 24 Hours up to 6 AM 10/25/20 06:00 Intake Total 1380 ml Output Total 1525 ml Balance -145 ml SALLY BUI MD October 25, 2020 10:31
[2020-10-25] MEDS: NS 1,000 ML IV SCH ×2 (11:15→18:59)
[2020-10-25] MEDS ORDERED: MAG SULF 1GM/100ML (MAG RUN) 1 GM in IV 1 EA IV ONE (12:00)
--- NOTE | 2020-10-25 12:14 | IPN ---
PROGRESS NOTE DATE: 10/25/2020 SUBJECTIVE: Ms. Carl is seen this morning on her bedside. She is lying in the bed comfortably and denies any new complaints. She is still receiving I.V. normal saline at 100 mL per hour. Patient denies any nausea, vomiting, dyspnea or chest pain. PHYSICAL EXAMINATION: VITALS: Temperature 98.6 degrees Fahrenheit, heart rate 70 per minute, respiratory rate 18 per minute, blood pressure 119/65 mmHg and oxygen saturation 96% on room air. INPUT/OUTPUT: Records from yesterday showed positive fluid balance of only 355 mL. HEENT: Head is atraumatic. Neck is supple and JVD not abnormally elevated. LUNGS: Chest: Clear to auscultation. HEART: Heart sounds are regular. ABDOMEN: Soft and nontender. Bowel sounds are normal. EXTREMITIES: Without any cyanosis or clubbing. LABORATORY DATA: Today's labs show WBC 3.4, hemoglobin 9.1, hematocrit 27.7, platelets 139,000. Sodium 144, potassium 3.3, CO2 24, BUN 17, creatinine 1.21. Calcium level 11.3 and phosphorus 2.3. Magnesium level 1.4. PROBLEMS: 1. Hypercalcemia: Calcium level seems to be leveled off and she remains on I.V. normal saline. I am increasing her Cinacalcet dose to 60 mg b.i.d. and she is also receiving Calcitonin injection 200 units subcutaneously every 12 hours. Her parathyroid scan did not show any compelling evidence for a parathyroid adenoma. With her dementia and advanced age, I am not sure if she is a surgical candidate and we will see if she responds to increased dose of Cinacalcet. 2. Acute kidney injury superimposed on chronic kidney disease: Kidney function seems to be stable at present and she remains on I.V. fluid in view of dehydration. 3. Hypomagnesemia: She received magnesium sulfate 1 gram yesterday, but her magnesium level has not changed. I will give her another dose of magnesium sulfate 1 gram intravenously today. 4. Hypokalemia: Most likely related to I.V. fluids and decreased oral intake. Her potassium supplement is being increased to 20 mEq b.i.d.
[2020-10-25 14:00] VITALS: BP 120/65
[2020-10-25] MEDS ORDERED: ACETAMINOPHEN TAB 650MG DOSE (2X325MG) PO PRN (19:20)
[2020-10-25] MEDS: QUEtiapine FUMARATE 25 MG TAB PO SCH (21:22)
[2020-10-25 22:00] VITALS: BP 114/65
[2020-10-26] MEDS: NS 1,000 ML IV SCH (04:08)
[2020-10-26] MEDS: ACETAMINOPHEN TAB 650MG DOSE (2X325MG) PO SCH ×3 (05:05→21:03)
[2020-10-26 06:00] VITALS: BP 116/68
[2020-10-26 06:29] LABS: HEMATOCRIT 29.5 % (36.0-47.0); HEMOGLOBIN 9.7 g/dl (12.0-15.5); MEAN CORPUSCULAR HEMOGLOBIN 31.8 pg (27.0-33.0); MEAN CORPUSCULAR HGB CONC 32.9 g/dl (32.0-36.5); MEAN CORPUSCULAR VOLUME 96.7 fl (80.0-96.0); PLATELET COUNT, AUTOMATED 132 10^3/uL (150-450); RED BLOOD COUNT 3.05 10^6/uL (4.00-5.40)
[2020-10-26 06:55] LABS: ALBUMIN 3.6 GM/DL (3.2-5.2); CALCIUM LEVEL 10.8 MG/DL (8.8-10.2); CREATININE FOR GFR 1.21 MG/DL (0.55-1.30); MAGNESIUM LEVEL 1.4 MG/DL (1.8-2.4); PHOSPHORUS LEVEL 2.3 MG/DL (2.5-4.9); POTASSIUM SERUM 3.2 MEQ/L (3.5-5.1)
[2020-10-26] MEDS: DOCUSATE SODIUM 100MG CAPSULE PO SCH ×2 (09:00→20:05)
[2020-10-26] MEDS: CYANOCOBALAMIN 500 MCG TAB PO SCH (09:00)
[2020-10-26] MEDS: FERROUS SULFATE 325MG TAB PO SCH (09:00)
[2020-10-26] MEDS: FOLIC ACID 1 MG TAB PO SCH (09:01)
[2020-10-26] MEDS: HEPARIN SOD (PORCINE) 5000UNITS/ML 1ML VIAL/SYRINGE SC SCH ×2 (09:01→20:08)
[2020-10-26] MEDS: CINACALCET 30 MG TAB (SENSIPAR) PO SCH ×2 (09:01→20:05)
[2020-10-26] MEDS: POTASSIUM CHLORIDE 10 MEQ SR TABLET PO SCH ×2 (09:01→20:05)
[2020-10-26] MEDS: CALCITONIN SALMON (MIACALCIN) 400INTERNATIONAL UNITS/2ML INJ (J0630) SQ SCH ×2 (09:02→20:08)
[2020-10-26] MEDS: LABETALOL 100MG TAB PO SCH ×2 (09:10→20:06)
[2020-10-26] MEDS ORDERED: MAG SULF 1GM/100ML (MAG RUN) 1 GM in IV 1 EA IV ONE (10:15)
[2020-10-26] MEDS ORDERED: KCL 40MEQ IN D5/0.45NS 1000ML 1,000 ML IV SCH (11:00)
--- NOTE | 2020-10-26 13:58 | IPNPDOC ---
Text Note Date of Service The patient was seen on 10/26/20. NOTE Subjective: Patient seen and examined at bedside. No acute overnight events reported. Patient has no new medical complaints this morning. Objective: General: NAD, lying comfortably in bed, pleasantly confused HEENT: NC, EOMI, small ecchymotic area under right eye Lungs: CTA B/L Heart: +S1S2, RRR Abd: soft, NT, +BS Ext: no edema A/P: 85 F resident of [facility] with PMHx including dementia, htn and primary hyperparathyroidism who presents after having an elevated calcium reading at the assisted. Patient previously on calcitriol, calcium and vitamin d supplements before these labs were noted. #Hypercalcemia - improving - 14.4 serum ca on admission - PTH found to be 992 in the ED. - NM scan unrevealing - Patient given 1L ns bolus and one dose of sensipar in the ed. - continue maintenance IVF with NS as well as calcitonin 60 mg PO BID - follow as per nephrology - assistance appreciated #LUISANA - pre-renal - continues to improve - on IV fluids #HTN - Continue labetalol, norvasc added overnight - furosemide on hold #Dementia - Continue quetiapine #DVT prophylaxis - Heparin SC previously ordered VS,Fishbone, I+O VS, Fishbone, I+O Laboratory Tests 10/26/20 06:11 Vital Signs Date Time Temp Pulse Resp B/P (MAP) Pulse Ox O2 Delivery O2 Flow Rate FiO2 10/26/20 09:11 87 166/91 10/26/20 06:00 97.9 18 97 Room Air I&O- Last 24 Hours up to 6 AM 10/26/20 06:00 Intake Total 4410 ml Output Total 2250 ml Balance 2160 ml SALLY BUI MD October 26, 2020 13:58
[2020-10-26 14:00] VITALS: BP 109/74
[2020-10-26] MEDS: QUEtiapine FUMARATE 25 MG TAB PO SCH (20:05)
[2020-10-26 22:00] VITALS: BP 138/86
[2020-10-27] MEDS: ACETAMINOPHEN TAB 650MG DOSE (2X325MG) PO SCH ×3 (05:11→21:04)
[2020-10-27 06:00] VITALS: BP 124/72
[2020-10-27 06:16] LABS: HEMATOCRIT 29.5 % (36.0-47.0); HEMOGLOBIN 9.7 g/dl (12.0-15.5); MEAN CORPUSCULAR HEMOGLOBIN 31.4 pg (27.0-33.0); MEAN CORPUSCULAR HGB CONC 32.9 g/dl (32.0-36.5); MEAN CORPUSCULAR VOLUME 95.5 fl (80.0-96.0); PLATELET COUNT, AUTOMATED 134 10^3/uL (150-450); RED BLOOD COUNT 3.09 10^6/uL (4.00-5.40)
[2020-10-27 06:51] LABS: ALBUMIN 3.5 GM/DL (3.2-5.2); CALCIUM LEVEL 10.9 MG/DL (8.8-10.2); CREATININE FOR GFR 1.28 MG/DL (0.55-1.30); GLOMERULAR FILTRATION RATE 42.2 (>32); MAGNESIUM LEVEL 1.5 MG/DL (1.8-2.4); POTASSIUM SERUM 3.5 MEQ/L (3.5-5.1)
--- NOTE | 2020-10-27 08:14 | IPN ---
PROGRESS NOTE DATE: 10/26/2020 SUBJECTIVE: The patient was seen and examined at the bedside today morning. She is afebrile, hemodynamically stable. She continues to be on IV fluid hydration. Calcium is getting better. Ionized calcium is 5.6 today. She continues to be on IV fluid and calcitonin. OBJECTIVE: Vital signs: Temperature is 97.9 degrees Fahrenheit, bp1 109/74, pulse is 76, respiratory rate of 20, saturating 98% on room air. Intake and output: Urine output recorded as 450 ml yesterday, 1800 ml by the time I saw her in the morning. Weight in the bed scale is not available. PHYSICAL EXAMINATION: General: The patient is awake, alert, oriented x2, lying in bed, in no apparent distress. Head and neck examination: Extraocular muscles are intact. Pupils equally round and reactive to light. Mucous membranes are moist. Neck is supple. There is no jugular venous distention (JVD). Cardiovascular: S1, S2 regular rate. No edema of the bilateral lower extremities. Respiratory: Clear to auscultation bilaterally. Bilateral equal air entry. No rales or rhonchi. Abdomen: Soft. Positive bowel sounds. Nontender. No organomegaly. Musculoskeletal: No clubbing or cyanosis. Pulses are 2+. LEARNING AND DEVELOPMENT ANALYST: No focal deficits. Power is 5/5 in all extremities. LABORATORY REVIEW: Complete blood count (CBC) showed a WBC of 3, hemoglobin 9.7, platelets are 132. Basic metabolic panel (BMP) showed sodium 144, potassium 3.2, chloride 113, bicarbonate 24, BUN 16, creatinine is 1.2. Calcium is 10.8, ionized calcium is 5.6. Phosphorus is 2.3. Magnesium 1.4. CURRENT INPATIENT MEDICATIONS: The patient's medications were all reviewed by myself. She was given a dose of magnesium sulfate 1 gm IV times one dose. I have stopped her normal saline. I have started the patient on KCl 40 mEq and half normal saline at 100 ml an hour times 1 liter. Calcitonin will be stopped tomorrow morning. She continues to be on Sensipar 60 mg by mouth twice a day. No other significant change in the medications today as compared with yesterday. ASSESSMENT AND PLAN: 1. Hyperglycemia. It is secondary to primarily hypoparathyrosis. PTS level is elevated. Sensipar dose was increased to 60 mg by mouth twice a day, calcium level is improving. Calcitonin will be stopped tomorrow morning. IV fluids were stopped today morning. Continue to morning for now. 2. Hypomagnesemia. The patient was give IV magnesium sulfate. 3. Hypokalemia. The patient is on oral potassium and I ave added potassium to the IV fluids as well. 4. Hypertension. Blood pressure is controlled with current dose of amlodipine and labetalol. 5. Acute kidney injury superimposed on chronic kidney disease. The patient got IV fluid hydration. Renal function has improved and creatinine has plateau at 1.2.
[2020-10-27] MEDS ORDERED: MAG SULF 1GM/100ML (MAG RUN) 1 GM in IV 1 EA IV ONE (09:00)
[2020-10-27] MEDS: DOCUSATE SODIUM 100MG CAPSULE PO SCH ×2 (09:28→21:00)
[2020-10-27] MEDS: HEPARIN SOD (PORCINE) 5000UNITS/ML 1ML VIAL/SYRINGE SC SCH ×2 (09:28→21:03)
[2020-10-27] MEDS: CYANOCOBALAMIN 500 MCG TAB PO SCH (09:28)
[2020-10-27] MEDS: CALCITONIN SALMON (MIACALCIN) 400INTERNATIONAL UNITS/2ML INJ (J0630) SQ SCH ×2 (09:28→21:02)
[2020-10-27] MEDS: FOLIC ACID 1 MG TAB PO SCH (09:28)
[2020-10-27] MEDS: MAGNESIUM OXIDE 400MG TAB (MAG-OX) PO SCH ×2 (09:29→21:03)
[2020-10-27] MEDS: FERROUS SULFATE 325MG TAB PO SCH (09:29)
[2020-10-27] MEDS: CINACALCET 30 MG TAB (SENSIPAR) PO SCH ×2 (09:29→21:03)
[2020-10-27] MEDS: POTASSIUM CHLORIDE 10 MEQ SR TABLET PO SCH ×2 (09:31→21:03)
[2020-10-27] MEDS: LABETALOL 100MG TAB PO SCH ×2 (09:32→21:04)
--- NOTE | 2020-10-27 10:07 | IPNPDOC ---
Text Note Date of Service The patient was seen on 10/27/20. NOTE Subjective: Patient seen and examined at bedside. No acute overnight events reported. Patient has no new medical complaints this morning. Objective: General: NAD, lying comfortably in bed, pleasantly confused HEENT: NC, EOMI, small ecchymotic area under right eye Lungs: CTA B/L Heart: +S1S2, RRR Abd: soft, NT, +BS Ext: no edema A/P: 85 F resident of [facility] with PMHx including dementia, htn and primary hyperparathyroidism who presents after having an elevated calcium reading at the detention. Patient previously on calcitriol, calcium and vitamin d supplements before these labs were noted. #Hypercalcemia - 14.4 serum ca on admission - PTH found to be 992 in the ED. - NM scan unrevealing - Patient given 1L ns bolus and one dose of sensipar in the ed. - calcitonin 400 q12h started - follow as per nephrology - assistance appreciated #LUISANA - nephrology on board - assistance appreciated - improved, grossly at baseline #HTN - Continue labetalol, norvasc - furosemide on hold #hypokalemia/hypomagnesemia - continue to follow and replete as needed #Dementia - Continue quetiapine #DVT prophylaxis - Heparin SC previously ordered VS,Fishbone, I+O VS, Fishbone, I+O Laboratory Tests 10/27/20 06:03 Vital Signs Date Time Temp Pulse Resp B/P (MAP) Pulse Ox O2 Delivery O2 Flow Rate FiO2 10/27/20 09:32 74 116/72 10/27/20 06:00 97.9 18 95 Room Air I&O- Last 24 Hours up to 6 AM 10/27/20 06:00 Intake Total 3360 ml Output Total 3850 ml Balance -490 ml SALLY BUI MD October 27, 2020 10:06
[2020-10-27] MEDS: POTASSIUM CHLORIDE INJ 40 MEQ in NS 0.45% 1,000 ML IV SCH ×2 (12:40→21:01)
[2020-10-27 14:00] VITALS: BP 151/78
--- NOTE | 2020-10-27 20:54 | IPN ---
PROGRESS NOTE DATE: 10/27/2020 SUBJECTIVE: Patient was seen and examined at the bedside today morning. IV fluids were stopped yesterday. Her calcitonin dose is being increased to 400 units subcutaneous twice a day. She still has very good urine output. She has mild persistent hypercalcemia with an ionized calcium of 5.6 today morning. OBJECTIVE: Vital signs: Temperature is 97.8 degrees Fahrenheit, blood pressure 151/78, pulse is 74, respiratory rate of 16, saturating 93% on room air. Intake and output: Urine output recorded is 5.4 liters yesterday, 250 mL so far today. Weight in the bed scale is not available. PHYSICAL EXAMINATION: General: Patient is awake, alert, oriented times two, laying in bed, no apparent distress. Head and neck exam: Extraocular muscles intact. Pupils equally round and reactive to light. Mucous membranes are moist. Neck is supple, there is no jugular venous distension (JVD). Cardiovascular: S1, S2, regular rate. No edema of the bilateral lower extremities. Respiratory: Chest is clear to auscultation bilaterally. Bilateral equal air entry. No rales or rhonchi. Abdomen: Soft, positive bowel sounds, nontender, no organomegaly. Musculoskeletal: No clubbing or cyanosis, pulses are 2+. Central nervous system (BACK END WEB DEVELOPER): No focal deficit. Power is 5/5 in all extremities. LABORATORY REVIEW: CBC showed WBC of 3, hemoglobin 9.7, platelets are 134. BMP showed sodium 142, potassium 3.5, chloride 112, bicarbonate 24, BUN 17, creatinine is 1.2, calcium is 10.9, ionized calcium is 5.6, magnesium is 1.5. CURRENT INPATIENT MEDICATIONS: Patient's medications were all reviewed by myself. She was given one dose of IV magnesium sulfate. I have started her on half normal saline and potassium at 100 mL/hour for a total of 2 liters. Calcitonin dose has been increased to 400 units subcutaneous every 12 hours for a total of four doses. She continues to be on Sensipar 60 mg by mouth twice a day. No other significant change in the medications today as compared with yesterday. She has also been started on 800 mg of magnesium oxide twice a day. ASSESSMENT AND PLAN: 1. Hypercalcemia. Patient has mild persistent hypercalcemia. She will be given 2 more liters of fluid, four more doses of calcitonin and a higher dose will be given. She continues to be on Sensipar 60 mg by mouth twice a day. 2. Hypomagnesemia. IV magnesium sulfate has been given and she has been started on oral magnesium as well. 3. Hypokalemia. It has resolved with oral and IV potassium. Potassium has been added to more IV fluids as well. 4. Hypertension. It is controlled with current dose of labetalol and amlodipine. We have to give her fluids because of hypercalcemia. I believe once IV fluids are stopped her blood pressures will be better. 5. Acute kidney injury superimposed on chronic kidney disease. It has resolved with IV fluid hydration and improving hypercalcemia.
[2020-10-27] MEDS: QUEtiapine FUMARATE 25 MG TAB PO SCH (21:03)
[2020-10-27 22:00] VITALS: BP 147/77
[2020-10-28] MEDS: ACETAMINOPHEN TAB 650MG DOSE (2X325MG) PO SCH ×2 (05:35→13:28)
[2020-10-28 06:00] VITALS: BP 130/66
[2020-10-28 07:02] LABS: HEMATOCRIT 30.2 % (36.0-47.0); MEAN CORPUSCULAR HEMOGLOBIN 32.7 pg (27.0-33.0); MEAN CORPUSCULAR HGB CONC 33.1 g/dl (32.0-36.5); MEAN CORPUSCULAR VOLUME 98.7 fl (80.0-96.0); PLATELET COUNT, AUTOMATED 124 10^3/uL (150-450); RED BLOOD COUNT 3.06 10^6/uL (4.00-5.40); WHITE BLOOD COUNT 2.9 10^3/uL (4.0-10.0)
[2020-10-28 07:33] LABS: ALBUMIN 3.4 GM/DL (3.2-5.2); CALCIUM LEVEL 10.4 MG/DL (8.8-10.2); CREATININE FOR GFR 1.16 MG/DL (0.55-1.30); GLOMERULAR FILTRATION RATE 47.3 (>32); MAGNESIUM LEVEL 1.6 MG/DL (1.8-2.4); PHOSPHORUS LEVEL 1.9 MG/DL (2.5-4.9); POTASSIUM SERUM 4.6 MEQ/L (3.5-5.1)
[2020-10-28] MEDS: DOCUSATE SODIUM 100MG CAPSULE PO SCH (09:48)
[2020-10-28] MEDS: CYANOCOBALAMIN 500 MCG TAB PO SCH (09:49)
[2020-10-28] MEDS: FERROUS SULFATE 325MG TAB PO SCH (09:49)
[2020-10-28] MEDS: FOLIC ACID 1 MG TAB PO SCH (09:49)
[2020-10-28] MEDS: CINACALCET 30 MG TAB (SENSIPAR) PO SCH (09:49)
[2020-10-28] MEDS: POTASSIUM CHLORIDE 10 MEQ SR TABLET PO SCH (09:49)
[2020-10-28] MEDS: HEPARIN SOD (PORCINE) 5000UNITS/ML 1ML VIAL/SYRINGE SC SCH (09:49)
[2020-10-28 09:50] VITALS: BP 111/65
[2020-10-28] MEDS: LABETALOL 100MG TAB PO SCH (09:50)
[2020-10-28] MEDS: MAGNESIUM OXIDE 400MG TAB (MAG-OX) PO SCH (09:50)
[2020-10-28 09:57] LABS: PTH INTACT 1071.9 PG/ML (18.5-88.0)
[2020-10-28] MEDS ORDERED: MAG SULF 1GM/100ML (MAG RUN) 1 GM in IV 1 EA IV ONE (10:00)
[2020-10-28] MEDS: CALCITONIN SALMON (MIACALCIN) 400INTERNATIONAL UNITS/2ML INJ (J0630) SQ SCH (10:47)
[2020-10-28] MEDS ORDERED: AMLO25TA PO (13:31)
[2020-10-28] MEDS ORDERED: MAGN400T2 PO (13:31)
[2020-10-28] MEDS ORDERED: CALCITONIN SALMON SQ (13:31)
[2020-10-28] MEDS ORDERED: CINA30TA4 PO (13:31)
--- NOTE | 2020-10-28 15:08 | IPN ---
PROGRESS NOTE DATE: 10/28/2020 SUBJECTIVE: The patient was seen and examined at the bedside today morning. She is afebrile, hemodynamically stable. IV fluids were stopped yesterday. She continues to be on calcitonin and Sensipar. Calcium level is getting better. Ionized calcium is 5.4 today. She denies any active complaints at this time. OBJECTIVE: Vital signs: Temperature is 98 degrees Fahrenheit, blood pressure 130/66, pulse is 72, respiratory rate of 18, saturating 93% on room air. Intake and output: Urine output recorded 450 ml yesterday, 800 ml so far today since overnight. Weight in the bed scale is not available. PHYSICAL EXAMINATION: The patient is awake, alert, oriented x2, sitting up in the bed in no apparent distress. Head and neck examination: Extraocular muscles are intact. Pupils equally round and reactive to light. Mucous membranes are moist. Neck is supple. There is no jugular venous distention (JVD). Cardiovascular: S1, S2 regular rate. No edema of the bilateral lower extremities. Respiratory: Chest is clear to auscultation bilaterally. Bilateral equal air entry. No rales or rhonchi. Abdomen: Soft. Positive bowel sounds, nontender. No organomegaly. Musculoskeletal: No clubbing or cyanosis. Pulses are 2+. DATA COMMUNICATIONS ENGINEER: No focal deficit. Power is 5/5 in all extremities. LABORATORY REVIEW: Complete blood count (CBC) showed a WBC of 2.9, hemoglobin 10, platelets of 124. Basic metabolic panel (BMP) showed sodium 139, potassium 4.6, chloride 111, bicarbonate 23, BUN 15, creatinine is 1.1. It was 1.2 yesterday. Calcium level is 10.4. Ionized calcium is 5.4. Magnesium level is 1.6. PTH level is 1071. CURRENT INPATIENT MEDICATIONS: The patient's medications were all reviewed by myself. She continues to be on Sensipar 60 mg by mouth twice a day. She is also on calcitonin 400 units subcutaneous q 12 hours. Last dose will be given tonight. She also got one dose of IV magnesium sulfate. No other significant change in the medications today. I am going to stop her oral potassium. ASSESSMENT AND PLAN: 1. Hypercalcemia. It is secondary to primary hyperparathyroidism. The patient is Sensipar 60 mg twice a day. If calcium level does not come down to normal range, then it will be increased next week. Continue calcitonin for one more dose. Hopefully, her calcium level should improve within the normal range tomorrow morning. 2. Hypomagnesemia. The patient got IV magnesium. She is receiving oral magnesium as well. 3. Hypokalemia. Potassium level has improved. I am stopping the oral potassium. 4. Hypertension. Blood pressure is controlled with amlodipine and Labetalol. 5. Acute kidney injury. It has resolved now with fluid hydration and improving hypercalcemia. DISPOSITION: Hopefully, we should be able to discharge the patient back to [facility] over the next 24 to 48 hours.
--- NOTE | 2020-10-28 15:43 | DS.PDOC ---
Discharge Summary General Date of Admission October 23, 2020 at 16:47 Date of Discharge 10/28/20 Discharge Summary PROCEDURES PERFORMED DURING STAY: [None]. ADMITTING DIAGNOSES: 1. . DISCHARGE DIAGNOSES: 1. . COMPLICATIONS/CHIEF COMPLAINT: Hypercalcemia. HISTORY OF PRESENT ILLNESS: This is an 85 y/o female resident of [facility] with a pmh of dementia, htn and primary hyperparathyroidism who presents to our ed after having a blood draw that showed a serum calcium of 14.4. Redraw performed in the ED was 13.6 and ionized calcium level was 6.6. Patient is awake and complains of being mad and bored because she is stuck in the room she is in in the emergency department. Patient thinks she is in retirement. She denies back pain, constipation, dysuria, abdominal pain, chest pain, sob, fevers, chills, cough, syncope, recent falls. HOSPITAL COURSE: 85 F resident of [facility] with PMHx including dementia, htn and primary hyperparathyroidism who presents after having an elevated calcium reading at the residential. Patient previously on calcitriol, calcium and vitamin d supplements before these labs were noted. #Hypercalcemia - 14.4 serum ca on admission - PTH found to be 992 in the ED. - NM scan unrevealing - Patient given 1L ns bolus and one dose of sensipar in the ed. - started calcitonin 400 q12h, increased sensipar - seen in consultation by nephrology #LUISANA - improved, grossly at baseline #HTN - Continue labetalol, norvasc - furosemide on hold #hypokalemia/hypomagnesemia - continue to follow and replete as needed #Dementia - Continue quetiapine DISCHARGE MEDICATIONS: Please see below. ALLERGIES: Please see below. PHYSICAL EXAMINATION ON DISCHARGE: VITAL SIGNS: Please see below. General: NAD, lying comfortably in bed, pleasantly confused HEENT: NC, EOMI, small ecchymotic area under right eye Lungs: CTA B/L Heart: +S1S2, RRR Abd: soft, NT, +BS Ext: no edema LABORATORY DATA: Please see below. ACTIVITY: [As tolerated]. DISPOSITION: [facility]. DISCHARGE INSTRUCTIONS: 1. PCP in 3-5 days 2. nephrology in one week 3. follow up calcium, renal function, magnesium DISCHARGE CONDITION: [Stable]. TIME SPENT ON DISCHARGE: 35 minutes. Vital Signs/I&Os Vital Signs Date Time Temp Pulse Resp B/P (MAP) Pulse Ox O2 Delivery O2 Flow Rate FiO2 10/28/20 09:50 74 111/65 10/28/20 06:00 98.0 18 93 Room Air I&O- Last 24 Hours up to 6 AM 10/28/20 06:00 Intake Total 3060 ml Output Total 1000 ml Balance 2060 ml Laboratory Data Labs 24H Laboratory Tests 2 10/28/20 06:31: Nucleated Red Blood Cells % (auto) 0.0, Anion Gap 5L, Glomerular Filtration Rate 47.3, Calcium Level 10.4H, Whole Blood Ionized Calcium 5.4H, Phosphorus Level 1.9L, Magnesium Level 1.6L, Albumin 3.4, Parathyroid Hormone (Intact) 1071.9H CBC/BMP Laboratory Tests 10/28/20 06:31 Microbiology Microbiology 10/28/20 Respiratory Virus Panel (PCR) ([facility]) - Final, Complete 10/22/20 Respiratory Virus Panel (PCR) ([facility]) - Final, Complete Discharge Medications Scheduled Amlodipine Besylate (Amlodipine Besylate) 2.5 Mg Tablet, 2.5 MG PO DAILY Cinacalcet (Sensipar) 30 Mg Tablet, 60 MG PO BID Cyanocobalamin (Vitamin B-12) (Vitamin B-12) 500 Mcg Tablet, 500 MCG PO DAILY, (Reported) Famotidine (Famotidine) 20 Mg Tablet, 20 MG PO DAILY, (Reported) Ferrous Sulfate (Iron) 325 Mg Tablet, 325 MG PO DAILY, (Reported) Folic Acid (Folic Acid) 1 Mg Tablet, 1 MG PO DAILY, (Reported) Labetalol HCl (Labetalol HCl) 100 Mg Tablet, 100 MG PO BID, (Reported) Magnesium Oxide (Magnesium) 400 Mg Capsule, 800 MG PO BID, (Reported) Magnesium Oxide (Magnesium Oxide) 400 Mg Tablet, 800 MG PO BID Quetiapine Fumarate (Quetiapine Fumarate) 25 Mg Tablet, 25 MG PO QHS, (Reported) Vitamin D (Vitamin D3) 10 Mcg Tablet, 600 UNITS PO DAILY, (Reported) [Calcitonin [place] Inj] 400 INTERUNITS/2 ML SOLN, 400 INTERUNITS SQ Q12H Scheduled PRN Acetaminophen (Acetaminophen) 325 Mg Tablet, 650 MG PO Q4H PRN for PAIN, (Reported) Bisacodyl (Dulcolax) 10 Mg Supp.rect, 10 MG MN DAILY PRN for CONSTIPATION, (Reported) Docusate Sodium (Colace) 100 Mg Capsule, 200 MG PO QHS PRN for CONSTIPATION, (Reported) Magnesium Hydroxide (Milk of Magnesia) 400 Mg/5 Ml Oral.susp, 10 ML PO DAILY PRN for CONSTIPATION, (Reported) Sodium Phosphate,[place]-Dibasic (Enema) 133 Ml Enema, 1 ANNA MN DAILY PRN for CON STIPATION, (Reported) Allergies Coded Allergies: No Known Drug Allergies (Verified Allergy, Unknown, 05/07/20) SALLY BUI MD October 28, 2020 15:43
== END 2020-10-28 13:50 | DRG 644 ==
LOC: M ED 16:39 → EDBD 16:39 → M ED INP 19:10 → ENRESERV 22:41 → M PCU 23:10 → OBSVTOIN 10-23 16:47 → M MS5PR 10-24 17:37
PROVIDERS: ADMIT Internal Medicine; ATTEND Internal Medicine
DX: E21.0 Primary hyperparathyroidism (principal); I50.32 Chronic diastolic (congestive) heart failure; N17.9 Acute kidney failure, unspecified; I13.0 Hypertensive heart and chronic kidney disease with heart failure and stage 1 through stage 4 chronic kidney disease, or unspecified chronic kidney disease; F03.90 Unspecified dementia, unspecified severity, without behavioral disturbance, psychotic disturbance, mood disturbance, and anxiety; N18.9 Chronic kidney disease, unspecified; E87.6 Hypokalemia; E83.42 Hypomagnesemia; R29.6 Repeated falls; Z79.899 Other long term (current) drug therapy

== ENCOUNTER → 2020-10-22 | Outpatient (REF) | payer MEDICARE, MEDICAID ==
[~2020-10-22] MED LIST changes: +FURO20TA2 PO; +POTA1TAB14 PO
== END ==
LOC: SKLAB3 10:40
PROVIDERS: ATTEND Internal Medicine
DX: E83.52 Hypercalcemia (principal)

== ENCOUNTER → 2020-10-29 | Outpatient (REF) | payer MEDICARE, MEDICAID ==
[~2020-10-29] MED LIST changes: +AMLO2.5T3 PO; +AMLO25TA PO; +CALCITONIN SALMON SQ; +FURO20TA2 PO; +MAGN400T2 PO; +POTA1TAB14 PO
[2020-10-29 09:45] LABS: CALCIUM LEVEL 12.1 MG/DL (8.8-10.2); CREATININE FOR GFR 1.38 MG/DL (0.55-1.30); GLOMERULAR FILTRATION RATE 38.7 (>32); MAGNESIUM LEVEL 2.2 MG/DL (1.8-2.4)
== END ==
LOC: SKLAB3 06:58
DX: E21.3 Hyperparathyroidism, unspecified (principal)

== ENCOUNTER 2020-10-30 12:30 | Inpatient (IN) | payer MEDICARE, MEDICAID ==
[~2020-10-30] VITALS: Ht 160 cm; Wt 55.5 kg
[~2020-10-30 12:30] MED LIST changes: -AMLO2.5T3 PO
[2020-10-30] MEDS ORDERED: CINA30TA4 PO (13:31)
[2020-10-30] MEDS ORDERED: CALCITONIN SALMON SQ (13:31)
[2020-10-30] MEDS ORDERED: AMLO2.5T3 PO (13:31)
[2020-10-30 13:49] LABS: BASO % 0.2 % (0.0-1.0); EOS % 0.7 % (0.0-3.0); HEMOGLOBIN 10.9 g/dl (12.0-15.5); LYMPH # 0.6 10^3/uL (1.5-5.0); LYMPH % 15.5 % (24.0-44.0); MEAN CORPUSCULAR HEMOGLOBIN 31.8 pg (27.0-33.0); MEAN CORPUSCULAR VOLUME 96.2 fl (80.0-96.0); MONO # 0.2 10^3/uL (0.0-0.8); MONO % 5.7 % (2.0-8.0); NEUTROPHILS # 3.1 10^3/uL (1.5-8.5); NEUTROPHILS % 77.2 % (36.0-66.0); PLATELET COUNT, AUTOMATED 169 10^3/uL (150-450); RED BLOOD COUNT 3.43 10^6/uL (4.00-5.40); WHITE BLOOD COUNT 4.1 10^3/uL (4.0-10.0)
[2020-10-30] MEDS ORDERED: ACETAMINOPHEN TAB 650MG DOSE (2X325MG) PO PRN (15:25)
[2020-10-30] MEDS ORDERED: DOCUSATE SODIUM 100MG CAPSULE PO PRN (15:25)
[2020-10-30] MEDS ORDERED: FLEET ENEMA PR PRN (15:25)
[2020-10-30] MEDS ORDERED: BISACODYL 10 MG SUPP PR PRN (15:25)
[2020-10-30] MEDS ORDERED: MAALOX 30 ML SUSP *UDC PO PRN (15:25)
[2020-10-30] MEDS ORDERED: MOM 30ML SUSPENSION UDC PO PRN (15:25)
--- NOTE | 2020-10-30 15:47 | HPEPDOC ---
[facility] Medical History & Physical Date of Admission October 30, 2020 Date of Service: October 30, 2020 History and Physical CHIEF COMPLAINT: Hypercalcemia HISTORY OF PRESENT ILLNESS: This is an 85-year-old female lives at the fpc here at [facility] who was just recently discharged due to hypercalcemia secondary to primary hyperparathyroidism. During follow-up blood work patient was found to have high calcium again despite being on calcitonin and Sensipar. Case was discussed with nephrology Dr. Alegria who recommended the patient be admitted and that he will see the patient in the morning. The patient tells me she feels fine she appears to be asymptomatic. She denies any vision changes denies headaches, chest pain, palpitations, shortness of breath, abdominal pain, nausea or vomiting, fevers or chills. Patient herself is not a very good historian due to her dementia. She is oriented to self and knows her date of and place knows she is in the hospital. Not oriented to time or season. Patient will be admitted to the medical service for observation for IV fluid hydration and management of hyperca lcemia. PAST MEDICAL/SURGICAL HISTORY: Primary hyperparathyroidism Hypertension Dementia Appendectomy Cholecystectomy Hysterectomy Bowel resection Lumbar laminectomy SOCIAL HISTORY: She is unable to uremia social history due to her dementia FAMILY HISTORY: I'm unable to obtain a family history from her due to her dementia ALLERGIES: Please see below. REVIEW OF SYSTEMS: Despite being a poor historian she was able to answer my ROS questions. 10 point review of systems complete all negative otherwise stated in HPI HOME MEDICATIONS: Please see below. PHYSICAL EXAMINATION: Constitutional: Awake and alert, in no apparent distress, frail appearing elderly female. Sarcopenic. ENT: Sclera are clear. Mucosa is moist. Respiratory: Lungs diminished airflow bilaterally. No respiratory distress. Cardiovascular: Regular rate and rhythm, no murmur Gastrointestinal: Abdomen is soft, non distended, non tender, BS present. Musculoskeletal: No lower extremity edema. Neurologic: No focal neurological deficit. Mental Status: A&O x2, normal affect Skin: Healing echymosis on right side of face LABORATORY DATA: See below. IMAGING: See chart MICROBIOLOGY: Please see below. ASSESSMENT/PLAN 85-year-old female history of hypertension, dementia, primary hyperparathyroidism who was recently discharged a few days ago due to hypercalcemia was found again at the [facility] during follow-up blood work to have hypercalcemia and found to have acute kidney injury. Admitted for [facility] for management and evaluation by nephrology. # Hypercalcemia secondary to primary hyperparathyroidism: I discussed the case with Dr Alegria nephrology who is consulted and will see the patient tomorrow. Recommended continuing her Sensipar and calcitonin and IVFs. Repeat ionized calcium in the morning. #LUISANA: Cr elevated from baseline to 1.4. IVFs NS. Trend BMP. Avoid nephrotoxins. Nephrology consulted. Bladder scan 185cc in the ED. # Hypokalemia: replace. Monitor. # Hypertension: Continue home meds. Monitor and titrate # Dementia: continue quetiapine. # DVT prophylaxis: Heparin A Yousef Hospitalist Vital Signs Vital Signs Date Time Temp Pulse Resp B/P (MAP) Pulse Ox O2 Delivery O2 Flow Rate FiO2 10/30/20 14:00 110 18 143/74 (97) 96 Laboratory Data Labs 24H Laboratory Tests 2 10/30/20 13:25: Immature Granulocyte % (Auto) 0.7, Neutrophils (%) (Auto) 77.2H, Lymphocytes (%) (Auto) 15.5L, Monocytes (%) (Auto) 5.7, Eosinophils (%) (Auto) 0.7, Basophils (%) (Auto) 0.2, Neutrophils # (Auto) 3.1, Lymphocytes # (Auto) 0.6L, Monocytes # (Auto) 0.2, Eosinophils # (Auto) 0.0, Basophils # (Auto) 0.0, Nucleated Red Blood Cells % (auto) 0.0, Whole Blood Ionized Calcium 6.4*H CBC/BMP Laboratory Tests 10/30/20 13:25 Microbiology Microbiology 10/30/20 Respiratory Virus Panel (PCR) ([facility]), Received Pending Home Medications Scheduled Amlodipine Besylate (Amlodipine Besylate) 2.5 Mg Tablet, 2.5 MG PO DAILY Cinacalcet (Sensipar) 30 Mg Tablet, 60 MG PO TID Cyanocobalamin (Vitamin B-12) (Vitamin B-12) 500 Mcg Tablet, 500 MCG PO DAILY Famotidine (Famotidine) 20 Mg Tablet, 20 MG PO DAILY Ferrous Sulfate (Iron) 325 Mg Tablet, 325 MG PO DAILY Folic Acid (Folic Acid) 1 Mg Tablet, 1 MG PO DAILY Labetalol HCl (Labetalol HCl) 100 Mg Tablet, 100 MG PO BID Magnesium Oxide (Magnesium) 400 Mg Capsule, 800 MG PO BID Quetiapine Fumarate (Quetiapine Fumarate) 25 Mg Tablet, 25 MG PO QHS Vitamin D (Vitamin D3) 10 Mcg Tablet, 15 MCG PO DAILY [Calcitonin [place]] , 400 UNIT SQ Q12H STARTED 10/29/20 FOR 10 DAYS Scheduled PRN Acetaminophen (Acetaminophen) 325 Mg Tablet, 650 MG PO Q4H PRN for PAIN Bisacodyl (Dulcolax) 10 Mg Supp.rect, 10 MG [place] DAILY PRN for CONSTIPATION Docusate Sodium (Colace) 100 Mg Capsule, 200 MG PO QHS PRN for CONSTIPATION Magnesium Hydroxide (Milk of Magnesia) 400 Mg/5 Ml Oral.susp, 10 ML PO DAILY PRN for CONSTIPATION Sodium Phosphate,[place]-Dibasic (Enema) 133 Ml Enema, 1 ANNA [place] DAILY PRN for CONSTIPATION Allergies Coded Allergies: No Known Drug Allergies (Verified Allergy, Unknown, 10/30/20) A-FIB/CHADSVASC A-FIB History Current/History of A-Fib/PAF?: No AMY REYNOSO MD October 30, 2020 15:47
[2020-10-30] MEDS ORDERED: POTASSIUM CHLORIDE 10 MEQ SR TABLET PO ONE (16:00)
[2020-10-30 17:05] LABS: CALCIUM LEVEL 12.5 MG/DL (8.8-10.2); CREATININE FOR GFR 1.3 MG/DL (0.55-1.30); GLOMERULAR FILTRATION RATE 41.4 (>32); MAGNESIUM LEVEL 1.5 MG/DL (1.8-2.4); POTASSIUM SERUM 3.8 MEQ/L (3.5-5.1)
[2020-10-30 17:20] VITALS: BP 171/84
[2020-10-30] MEDS: CINACALCET 30 MG TAB (SENSIPAR) PO SCH ×2 (17:59→21:55)
[2020-10-30] MEDS: KCL 20MEQ IN D5/0.45NS 1000ML 1,000 ML IV SCH (18:00)
--- NOTE | 2020-10-30 20:19 | ECGEPIP ---
[facility] - ED Test Date: 2020-10-30 Pat Name: GAVIOTA ANDRADE Department: Room: - Gender: Female Analytics Manager: HALLIE : 1935 Requested By: MELODY Mars Order Number: [id number] Reading MD: Stan Mccullough Measurements Intervals [place] Rate: 101 P: 53 KS: 232 QRS: 11 QRSD: 106 T: -14 QT: 350 QTc: 453 Interpretive Statements Sinus rhythm with 1st degree AV block with frequent premature ventricular complexes Left ventricular hypertrophy with repolarization abnormality ( Sokolow-Chaves , Mikhail product ) NSTTW ABNORMALITY(S) SIMILAR TO 10/22/20 Electronically Signed on 10-30-2020 20:19:16 EDT by Stan Mccullough
[2020-10-30] MEDS: MAGNESIUM OXIDE 400MG TAB (MAG-OX) PO SCH (21:50)
[2020-10-30] MEDS: QUEtiapine FUMARATE 25 MG TAB PO SCH (21:50)
[2020-10-30] MEDS: HEPARIN SOD (PORCINE) 5000UNITS/ML 1ML VIAL/SYRINGE SC SCH (21:50)
[2020-10-30] MEDS: LABETALOL 100MG TAB PO SCH (21:56)
[2020-10-30] MEDS: CALCITONIN SALMON (MIACALCIN) 400INTERNATIONAL UNITS/2ML INJ (J0630) SQ SCH (21:56)
[2020-10-30 22:00] VITALS: BP 126/61
[2020-10-31] MEDS: KCL 20MEQ IN D5/0.45NS 1000ML 1,000 ML IV SCH ×3 (01:25→21:05)
[2020-10-31 06:00] VITALS: BP 127/64
[2020-10-31 06:23] LABS: HEMATOCRIT 31.3 % (36.0-47.0); HEMOGLOBIN 10.3 g/dl (12.0-15.5); MEAN CORPUSCULAR HEMOGLOBIN 31.9 pg (27.0-33.0); MEAN CORPUSCULAR HGB CONC 32.9 g/dl (32.0-36.5); MEAN CORPUSCULAR VOLUME 96.9 fl (80.0-96.0); PLATELET COUNT, AUTOMATED 156 10^3/uL (150-450); RED BLOOD COUNT 3.23 10^6/uL (4.00-5.40); WHITE BLOOD COUNT 3.8 10^3/uL (4.0-10.0)
[2020-10-31 06:48] LABS: ALBUMIN 3.6 GM/DL (3.2-5.2); BILIRUBIN,TOTAL 0.4 MG/DL (0.2-1.0); CALCIUM LEVEL 12.5 MG/DL (8.8-10.2); CREATININE FOR GFR 1.24 MG/DL (0.55-1.30); GLOMERULAR FILTRATION RATE 43.8 (>32); MAGNESIUM LEVEL 1.4 MG/DL (1.8-2.4); POTASSIUM SERUM 4.2 MEQ/L (3.5-5.1); TOTAL PROTEIN 6.8 GM/DL (6.4-8.2)
[2020-10-31] MEDS: MAG SULF 1GM/100ML (MAG RUN) 1 GM in IV 1 EA IV SCH ×3 (08:22→10:38)
[2020-10-31] MEDS: HEPARIN SOD (PORCINE) 5000UNITS/ML 1ML VIAL/SYRINGE SC SCH ×2 (08:23→21:05)
[2020-10-31] MEDS: FAMOTIDINE 20 MG TAB PO SCH (08:23)
[2020-10-31] MEDS: CINACALCET 30 MG TAB (SENSIPAR) PO SCH ×3 (08:23→21:04)
[2020-10-31] MEDS: FOLIC ACID 1 MG TAB PO SCH (08:24)
[2020-10-31] MEDS: MAGNESIUM OXIDE 400MG TAB (MAG-OX) PO SCH ×2 (08:24→21:00)
[2020-10-31] MEDS: LABETALOL 100MG TAB PO SCH ×2 (08:24→21:06)
[2020-10-31] MEDS: CYANOCOBALAMIN 500 MCG TAB PO SCH (08:24)
[2020-10-31] MEDS: FERROUS SULFATE 325MG TAB PO SCH (08:25)
[2020-10-31] MEDS ORDERED: ZOLEDRONIC ACID 4 MG in IV 1 EA IV ONE (08:40)
--- NOTE | 2020-10-31 11:29 | IPNPDOC ---
Text Note Date of Service The patient was seen on 10/31/20. NOTE Subjective: Patient was seen and examined this morning at bedside. She has no complaints. Feels well. No acute overnight events reported to me. Awaiting evaluation by nephrology today. Objective: Constitutional: Awake and alert, in no apparent distress, frail appearing elderl y female. Sarcopenic. ENT: Sclera are clear. Mucosa is moist. Respiratory: Lungs diminished airflow bilaterally. No respiratory distress. Cardiovascular: Regular rate and rhythm, no murmur Gastrointestinal: Abdomen is soft, non distended, non tender, BS present. Musculoskeletal: No lower extremity edema. Neurologic: No focal neurological deficit. Mental Status: A&O x2, normal affect Skin: Healing echymosis on right side of face Assessment/plan: 85-year-old female history of hypertension, dementia, primary hyperparathyroidism who was recently discharged a few days ago due to hyperca lcemia was [facility] at the [facility] during follow-up blood work to have hypercalcemia and found to have acute kidney injury. Admitted for observation for management and evaluation by nephrology. # Hypercalcemia secondary to primary hyperparathyroidism: I discussed the case with Dr Alegria nephrology who is consulted and will see the patient today. Recommended continuing her Sensipar and calcitonin and IVFs. Repeat ionized calcium shows some improvement down to 6.2 (from 6.4) #LUISANA: Cr elevated from baseline to 1.4 initially, improved to 1.2. IVFs NS. Trend BMP. Avoid nephrotoxins. Nephrology consulted. Bladder scan 185cc in the ED. # Hypokalemia: replaced. Monitor. Resolved. # Hypertension: Continue home meds. Monitor and titrate # Dementia: continue quetiapine. # DVT prophylaxis: Heparin A Ritesh [facility]ist Roge TAM, I+O Roge TAM I+O Laboratory Tests 10/30/20 13:25 10/30/20 16:21 10/31/20 05:54 Vital Signs Date Time Temp Pulse Resp B/P (MAP) Pulse Ox O2 Delivery O2 Flow Rate FiO2 10/31/20 08:25 78 149/82 10/31/20 06:00 98.0 18 94 Room Air I&O- Last 24 Hours up to 6 AM 10/31/20 06:00 Intake Total 1730 ml Output Total 0 ml Balance 1730 ml AMY REYNOSO MD October 31, 2020 11:29
[2020-10-31] MEDS ORDERED: DENOSUMAB (XGEVA) 120MG/1.7ML VIAL (J0897 PER 1MG) (FOR ONCOLOGY) SC ONE (12:00)
[2020-10-31] MEDS: CALCITONIN SALMON (MIACALCIN) 400INTERNATIONAL UNITS/2ML INJ (J0630) SQ SCH ×2 (12:26→21:05)
[2020-10-31 14:59] VITALS: BP 151/83
[2020-10-31] MEDS: QUEtiapine FUMARATE 25 MG TAB PO SCH (21:04)
[2020-10-31 22:00] VITALS: BP 148/81
[2020-11-01 06:00] VITALS: BP 146/79
[2020-11-01 06:09] LABS: HEMATOCRIT 32.4 % (36.0-47.0); HEMOGLOBIN 10.8 g/dl (12.0-15.5); MEAN CORPUSCULAR HGB CONC 33.3 g/dl (32.0-36.5); MEAN CORPUSCULAR VOLUME 95.9 fl (80.0-96.0); PLATELET COUNT, AUTOMATED 170 10^3/uL (150-450); RED BLOOD COUNT 3.38 10^6/uL (4.00-5.40); WHITE BLOOD COUNT 4.6 10^3/uL (4.0-10.0)
[2020-11-01 06:34] LABS: ALBUMIN 3.4 GM/DL (3.2-5.2); BILIRUBIN,TOTAL 0.4 MG/DL (0.2-1.0); CALCIUM LEVEL 13.2 MG/DL (8.8-10.2); CREATININE FOR GFR 1.5 MG/DL (0.55-1.30); GLOMERULAR FILTRATION RATE 35.1 (>32); MAGNESIUM LEVEL 2.3 MG/DL (1.8-2.4); POTASSIUM SERUM 3.9 MEQ/L (3.5-5.1); TOTAL PROTEIN 6.9 GM/DL (6.4-8.2)
[2020-11-01] MEDS: KCL 20MEQ IN D5/0.45NS 1000ML 1,000 ML IV SCH ×2 (07:07→14:59)
[2020-11-01] MEDS ORDERED: ZOLEDRONIC ACID 4 MG in IV 1 EA IV ONE (08:00)
--- NOTE | 2020-11-01 08:43 | CR ---
CONSULTATION DATE: 10/31/2020 REQUESTING PHYSICIAN: Domingo Awad MD CONSULTING PHYSICIAN: Salo Trejo MD REASON FOR CONSULTATION: Management of persistent hypercalcemia and acute renal failure. CHIEF COMPLAINT: Patient was sent back from the [facility] because of abnormal labs. HISTORY OF PRESENT ILLNESS: Josee Carl is an 85-year-old female with a past medical history of primary hyperparathyroidism, hypercalcemia, hypertension, and other comorbidities as mentioned below. She was recently seen by nephrology service during previous hospitalization because of hypercalcemia, altered mental status, acute renal failure. She needed I.V. fluid hydration, Sensipar and Calcitonin. On discharge her ionized calcium level was 5.4 which was close to normal, however after getting discharged from the hospital, she missed a few doses of Calcitonin. She became hypercalcemic again. She also developed acute renal failure. Her ionized calcium level bumped up all the way to 6.4. So the patient was sent back to the Emergency Room for further evaluation. Patient's creatinine on admission was 1.3 and before discharge her creatinine was 1.1. I saw and evaluated the patient today morning at the bedside. I had already discussed the case with Dr. Domingo Awad yesterday when the patient was admitted. Patient is awake and alert. She answers few questions. She has baseline dementia. PAST MEDICAL HISTORY: Primary hyperparathyroidism, however, the nuclear scan was not able to localize any parathyroid adenoma, hypertension, dementia. PAST SURGICAL HISTORY: Status post appendectomy, cholecystectomy, hysterectomy and bowel resection in the past, status post lumbar laminectomy. ALLERGIES: No known drug allergies. FAMILY HISTORY: Unable to obtain family history because of dementia. SOCIAL HISTORY: Patient is a resident of retirement. REVIEW OF SYSTEMS: CONSTITUTIONAL: She denies any fever and chills. EYES: She denies any blurry vision, double vision. CARDIOVASCULAR: She denies any chest pain or palpitations. RESPIRATORY: She denies any shortness of breath. GI: She denies any nausea or vomiting. GENITOURINARY: She denies any dysuria or hematuria. MUSCULOSKELETAL: Patient is bedridden. All other review of systems is negative. PHYSICAL EXAMINATION: GENERAL: Patient is awake, alert and oriented x2, lying in bed in no apparent distress. VITAL SIGNS: Temperature 97.5 degrees Fahrenheit, blood pressure 151/83, pulse 77, respiratory rate 20, saturating 97% on room air. HEAD/NECK: Extraocular muscles intact. Pupils equally round and reactive to light. Mucous membranes are moist. Neck is supple. There is no JVD. CARDIOVASCULAR: S1, S2, regular rate. No edema of the bilateral lower extremities. RESPIRATORY: Chest is clear to auscultation bilaterally. Bilateral equal air entry. No rales or rhonchi. ABDOMEN: Soft, positive bowel sounds, nontender. No organomegaly. MUSCULOSKELETAL: No clubbing or cyanosis. Pulses are 2+. BIZTALK ADMINISTRATOR: Patient is oriented x2, otherwise she follows commands and moves extremities. LABORATORY REVIEW: CBC showed WBC 3.8, hemoglobin 10.3, platelets 156,000. Urinalysis is not available. Labs on arrival showed sodium 139, potassium 3.8, chloride 108, bicarb 27, BUN 19, creatinine 1.3. Ionized calcium 6.4. CURRENT INPATIENT MEDICATIONS: Patient's medications were all reviewed by myself. She is currently getting KCl 20 mEq and half normal saline at 100 cc an hour. Getting Tylenol p.r.n., Mylanta p.r.n. Amlodipine 2.5 mg p.o. daily, Calcitonin 400 units subcu twice a day, Sensipar 60 mg p.o. three times a day, Vitamin B12 500 mcg p.o. daily. He is on Denosumab one dose 120 mg subcu was given. Pepcid 20 mg p.o. daily, iron tablet 325 mg daily, folic acid 1 mg p.o. daily, Labetalol 100 mg p.o. twice a day , magnesium 800 mg p.o. twice a day and Seroquel 25 mg p.o. q.h.s. ASSESSEMENT AND PLAN: 1. Hypercalcemia: It is secondary to primary hyperparathyroidism. Her PTH level during recent hospitalization was more than 1,000. Continue Sensipar 60 mg p.o. three times a day. Continue Calcitonin. She was given a dose of Xgeva. Nuclear scan done during recent hospitalization was unable to localize any parathyroid adenoma. If calcium level stays high, then Sensipar dose will be increased. Continue I.V. fluid hydration at this time. 2. Hypomagnesemia: Patient is getting oral magnesium. Magnesium level is getting better. 3. Hypertension: Blood pressure is controlled with current dose of Amlodipine and Labetalol. 4. Anemia and chronic kidney disease: Continue current dose of iron tablets and B12. No need of ES administration hemoglobin is more than 10. Thank you for involving me in the care of this patient. I shall be happy to follow the patient along with you tomorrow morning.
[2020-11-01] MEDS: FERROUS SULFATE 325MG TAB PO SCH (09:12)
[2020-11-01] MEDS: FAMOTIDINE 20 MG TAB PO SCH (09:12)
[2020-11-01] MEDS: CINACALCET 30 MG TAB (SENSIPAR) PO SCH ×3 (09:12→20:21)
[2020-11-01] MEDS: FOLIC ACID 1 MG TAB PO SCH (09:12)
[2020-11-01] MEDS: LABETALOL 100MG TAB PO SCH ×2 (09:12→20:22)
[2020-11-01] MEDS: MAGNESIUM OXIDE 400MG TAB (MAG-OX) PO SCH ×2 (09:12→20:22)
[2020-11-01] MEDS: CYANOCOBALAMIN 500 MCG TAB PO SCH (09:12)
[2020-11-01] MEDS: CALCITONIN SALMON (MIACALCIN) 400INTERNATIONAL UNITS/2ML INJ (J0630) SQ SCH ×3 (09:13→20:34)
[2020-11-01] MEDS: HEPARIN SOD (PORCINE) 5000UNITS/ML 1ML VIAL/SYRINGE SC SCH ×2 (09:13→20:22)
--- NOTE | 2020-11-01 12:15 | IPNPDOC ---
Text Note Date of Service The patient was seen on 11/01/20. NOTE Subjective: Patient was seen and examined this morning at bedside. She has no complaints. Feels well. No acute overnight events reported to me. Objective: Constitutional: Awake and alert, in no apparent distress, frail appearing elderly female. Sarcopenic. ENT: Sclera are clear. Mucosa is moist. Respiratory: Lungs diminished airflow bilaterally. No respiratory distress. Cardiovascular: Regular rate and rhythm, no murmur Gastrointestinal: Abdomen is soft, non distended, non tender, BS present. Musculoskeletal: No lower extremity edema. Neurologic: No focal neurological deficit. Mental Status: A&O x2, normal affect Skin: Healing echymosis on right side of face Assessment/plan: 85-year-old female history of hypertension, dementia, primary hyperparathyroidi sm who was recently discharged a few days ago due to hypercalcemia was found again at the skilled nursing during follow-up blood work to have hypercalcemia and found to have acute kidney injury. Admitted for management and evaluation by nephrology. # Hypercalcemia secondary to primary hyperparathyroidism: I discussed the case with Dr Alegria nephrology who is consulted. Recommended continuing her S ensipar and calcitonin and IVFs. Repeat ionized calcium shows calcium still elevated. Today calcitonin was increased to q6h. Xgeva (Denosumab) given on 10/[address] alegria tells me usually takes a few days to work. Continue to trend calcium in the meantime. #LUISANA: Cr elevated from baseline to 1.4 initially, initially improved to 1.2 now back up to 1.5. IVFs NS. Trend BMP. Avoid nephrotoxins. Nephrology consulted. Bladder scan 185cc in the ED. # Hypokalemia: replaced. Monitor. Resolved. # Hypertension: Continue home meds. Monitor and titrate # Dementia: continue quetiapine. # DVT prophylaxis: Heparin A Yousef Hospitalist VSRoge, I+O VSRoge, I+O Laboratory Tests 11/01/20 05:58 Vital Signs Date Time Temp Pulse Resp B/P (MAP) Pulse Ox O2 Delivery O2 Flow Rate FiO2 11/01/20 09:12 84 118/72 11/01/20 06:00 97.2 18 95 Room Air I&O- Last 24 Hours up to 6 AM 11/01/20 06:00 Intake Total 3160 ml Output Total 0 ml Balance 3160 ml AMY REYNOSO MD November 01, 2020 12:15
[2020-11-01 14:00] VITALS: BP 147/80
[2020-11-01] MEDS: QUEtiapine FUMARATE 25 MG TAB PO SCH (20:22)
[2020-11-01 22:00] VITALS: BP 145/75
--- NOTE | 2020-11-01 22:50 | IPN ---
NEPHROLOGY PROGRESS NOTE DATE: 11/01/2020 SUBJECTIVE: Patient was seen and examined at the bedside today morning. She continues to be on I.V. fluid hydration. She is persistently hypercalcemic. Her renal function is actually worse today as compared with yesterday. Creatinine has bumped up to 1.5. Ionized calcium was still 6.9 today and I increased her dose of Calcitonin today morning. OBJECTIVE: VITAL SIGNS: Temperature 97.4 degrees Fahrenheit, blood pressure 147/80, pulse 68, respiratory rate 20, saturating 97% on room air. INTAKE/OUTPUT: Urine output recorded as 750 mL. Weight in the bed scale is not available. PHYSICAL EXAMINATION: GENERAL: Patient is awake, alert and oriented x2, sitting up in the bed in no apparent distress. HEAD/NECK: Extraocular muscles intact. Pupils equally round and reactive to light. Mucous membranes are moist. Neck is supple. There is no JVD. CVS: S1, S2, regular rate. No edema of the bilateral lower extremities. RESPIRATORY: Chest is clear to auscultation bilaterally. Bilateral equal air entry. No rales or rhonchi. ABDOMEN: Soft, positive bowel sounds, nontender. No organomegaly. MUSCULOSKELETAL: No clubbing or cyanosis. Pulses are 2+. CLINICAL QUALITY MANAGER: No focal deficit. Power is 5/5 in all extremities. LABORATORY REVIEW: CBC showed WBC 4.6, hemoglobin 10.8, platelets 170,000. BMP showed sodium 137, potassium 3.9, chloride 106, bicarb 27, BUN 21, creatinine 1.5; it was 1.2 yesterday. Calcium 13.2. Ionized calcium 6.9 today morning. CURRENT INPATIENT MEDICATIONS: Patient's medications were all reviewed by myself. I increased her Calcitonin dose to 400 units subcutaneous every 6 hours. She continues to be on Sensipar 60 mg p.o. three times a day. She continues to be on I.V. fluids as well. She was given a dose of Xgeva yesterday. ASSESSMENT AND PLAN: 1. Persistent hypercalcemia: It is secondary to primary hyperparathyroidism. She received a dose of Xgeva, which usually takes up to 3 days to start functioning. Calcitonin loses after 48 hours, that is why I have increased the frequency of Calcitonin to every 6 hours. Continue I.V. fluid hydration at this time. 2. Hypertension: Blood pressure is controlled with Amlodipine and Labetalol. 3. Acute kidney injury superimposed on chronic kidney disease: It is secondary to hypercalcemia. Continue I.V. fluid hydration at this time. Renal function should improve back to baseline with I.V. fluids. 4. Anemia and chronic kidney disease: Hemoglobin level is 10.8. Check the iron levels tomorrow morning.
[2020-11-02] MEDS: KCL 20MEQ IN D5/0.45NS 1000ML 1,000 ML IV SCH ×3 (00:37→21:08)
[2020-11-02] MEDS: CALCITONIN SALMON (MIACALCIN) 400INTERNATIONAL UNITS/2ML INJ (J0630) SQ SCH ×4 (02:24→21:08)
[2020-11-02 06:00] VITALS: BP 137/72
[2020-11-02 06:56] LABS: HEMATOCRIT 30.7 % (36.0-47.0); HEMOGLOBIN 10.1 g/dl (12.0-15.5); MEAN CORPUSCULAR HEMOGLOBIN 31.5 pg (27.0-33.0); MEAN CORPUSCULAR HGB CONC 32.9 g/dl (32.0-36.5); MEAN CORPUSCULAR VOLUME 95.6 fl (80.0-96.0); PLATELET COUNT, AUTOMATED 155 10^3/uL (150-450); RED BLOOD COUNT 3.21 10^6/uL (4.00-5.40); WHITE BLOOD COUNT 3.4 10^3/uL (4.0-10.0)
[2020-11-02 07:18] LABS: ALBUMIN 3.3 GM/DL (3.2-5.2); BILIRUBIN,TOTAL 0.4 MG/DL (0.2-1.0); CALCIUM LEVEL 11.7 MG/DL (8.8-10.2); CREATININE FOR GFR 1.5 MG/DL (0.55-1.30); GLOMERULAR FILTRATION RATE 35.1 (>32); MAGNESIUM LEVEL 1.7 MG/DL (1.8-2.4); PERCENT SATURATION 34.3 % (13.2-45.0); POTASSIUM SERUM 3.8 MEQ/L (3.5-5.1); TOTAL PROTEIN 6.5 GM/DL (6.4-8.2)
[2020-11-02 08:30] VITALS: BP 128/74
[2020-11-02] MEDS: CINACALCET 30 MG TAB (SENSIPAR) PO SCH ×3 (08:48→21:13)
[2020-11-02] MEDS: LABETALOL 100MG TAB PO SCH ×2 (08:49→21:06)
[2020-11-02] MEDS: HEPARIN SOD (PORCINE) 5000UNITS/ML 1ML VIAL/SYRINGE SC SCH ×2 (09:28→21:07)
[2020-11-02] MEDS: MAGNESIUM OXIDE 400MG TAB (MAG-OX) PO SCH ×2 (09:29→21:07)
[2020-11-02] MEDS: FOLIC ACID 1 MG TAB PO SCH (09:29)
[2020-11-02] MEDS: FERROUS SULFATE 325MG TAB PO SCH (09:29)
[2020-11-02] MEDS: CYANOCOBALAMIN 500 MCG TAB PO SCH (09:29)
[2020-11-02] MEDS: FAMOTIDINE 20 MG TAB PO SCH (09:29)
[2020-11-02] MEDS ORDERED: MAG SULF 1GM/100ML (MAG RUN) 1 GM in IV 1 EA IV ONE (10:30)
--- NOTE | 2020-11-02 12:25 | IPNPDOC ---
Text Note Date of Service The patient was seen on 11/02/20. NOTE Subjective: -No acute complaints -No acute overnight events reported to me. Objective: Constitutional: Awake and alert, in no apparent distress, frail appearing elderly female. ENT: Sclera are clear and anicteric. Mucosa is moist. Respiratory: Diminished airflow bilaterally. No respiratory distress, no crackles or wheezing Cardiovascular: Regular rate and rhythm, no murmur Gastrointestinal: Abdomen is soft, non distended, non tender, normoactive bowel sounds Musculoskeletal: No lower extremity edema. Neurologic: No focal neurological deficit. Mental Status: A&O x2, normal affect Skin: Healing ecchymosis on right side of face Labs: Reviewed Mag 1.7 WBC 3.4 Hgb 10.1 Platelets 155 Na 138 K 3.8 Cr 1.5 iCa 6.2 Assessment/plan: 85-year-old W with a history of hypertension, dementia, primary hyperparathyroidism who was recently discharged a few days ago due to hypercalcemia who was found again at the [facility] during follow-up blood work to have hypercalcemia and found to have acute kidney injury. Admitted for management and evaluation with nephrology consulted. # Hypercalcemia secondary to primary hyperparathyroidism: -Nephrology consulted, Recommended continuing her Sensipar and calcitonin and IVFs. -Trend daily ionized calcium -s/p Denosuma on 10/[address] Trejo said usually takes a few days to work. #LUISANA: Cr elevated from baseline to 1.4 initially, initially improved to 1.2 now back up to 1.5. -IVFs NS. -Trend BMP. -Avoid nephrotoxins. -Nephrology consulted. # Hypokalemia: replaced. Resolved. # Hypertension: Continue home meds. # Dementia: continue quetiapine. # DVT prophylaxis: Heparin VS,Fishbone, I+O VS, Fishbone, I+O Laboratory Tests 11/02/20 06:31 11/02/20 06:32 Vital Signs Date Time Temp Pulse Resp B/P (MAP) Pulse Ox O2 Delivery O2 Flow Rate FiO2 11/02/20 08:49 74 128/74 11/02/20 06:00 97.2 19 96 Room Air I&O- Last 24 Hours up to 6 AM 11/02/20 06:00 Intake Total 3420 ml Output Total 2350 ml Balance 1070 ml KIM QUINONES MD November 02, 2020 10:06
[2020-11-02 14:00] VITALS: BP 141/74
[2020-11-02] MEDS ORDERED: NYSTATIN 100,000 UNITS/GM TOPICAL PWD 15 GM TOP SCH (21:00)
[2020-11-02] MEDS: QUEtiapine FUMARATE 25 MG TAB PO SCH (21:07)
[2020-11-02 22:00] VITALS: BP 142/73
[2020-11-03 06:00] VITALS: BP 137/70
[2020-11-03 06:36] LABS: HEMATOCRIT 30.2 % (36.0-47.0); HEMOGLOBIN 9.8 g/dl (12.0-15.5); MEAN CORPUSCULAR HEMOGLOBIN 31.3 pg (27.0-33.0); MEAN CORPUSCULAR HGB CONC 32.5 g/dl (32.0-36.5); MEAN CORPUSCULAR VOLUME 96.5 fl (80.0-96.0); PLATELET COUNT, AUTOMATED 166 10^3/uL (150-450); RED BLOOD COUNT 3.13 10^6/uL (4.00-5.40); WHITE BLOOD COUNT 3.2 10^3/uL (4.0-10.0)
[2020-11-03] MEDS: KCL 20MEQ IN D5/0.45NS 1000ML 1,000 ML IV SCH ×2 (06:47→16:23)
[2020-11-03 06:55] LABS: ALBUMIN 3.2 GM/DL (3.2-5.2); BILIRUBIN,TOTAL 0.3 MG/DL (0.2-1.0); CALCIUM LEVEL 10.5 MG/DL (8.8-10.2); CREATININE FOR GFR 1.59 MG/DL (0.55-1.30); GLOMERULAR FILTRATION RATE 32.8 (>32); MAGNESIUM LEVEL 2.2 MG/DL (1.8-2.4); POTASSIUM SERUM 4.2 MEQ/L (3.5-5.1); TOTAL PROTEIN 6.5 GM/DL (6.4-8.2)
--- NOTE | 2020-11-03 07:38 | IPN ---
PROGRESS NOTE DATE: 11/02/2020 SUBJECTIVE: The patient was seen and examined at the bedside today morning. She is afebrile and hemodynamically stable. She continues to be on IV normal saline. Her Calcitonin dose was increased yesterday. She continues to be on Sensipar and despite that, she still has hypercalcemia. However, ionized calcium is slightly better today as compared with yesterday at 6.2. OBJECTIVE: VITAL SIGNS: Temperature 97.5 degrees Fahrenheit, blood pressure 141/64, pulse 64, respiratory rate 14, saturating 95% on room air. INTAKE AND OUTPUT: Urine output recorded as 1550 mL yesterday, 1700 mL so far today since overnight. Weight on the bed scale is not available. GENERAL: The patient is awake, alert, and oriented x2. Laying in bed in no apparent distress. HEAD AND NECK: Extraocular muscles intact. Pupils equally round and reactive to light. Mucous membranes are moist. Neck is supple. No JVD. CARDIOVASCULAR: S1, S2. Regular rate. No edema of the bilateral lower extremities. RESPIRATORY: Chest is clear to auscultation bilaterally. Bilateral equal air entry. No rales or rhonchi. ABDOMEN: Soft with positive bowel sounds, nontender, and no organomegaly. MUSCULOSKELETAL: No clubbing or cyanosis. Pulses are 2+. LAB REP: No focal deficits. Power is 5/5 in all extremities. LABORATORY DATA: CBC showed a WBC of 3.4, hemoglobin 10.1, platelets 155,000. BMP showed sodium 135, potassium 3.8, chloride 103, bicarb 26, BUN 23, creatinine 1.5. Calcium 11.7 and ionized calcium is 6.2. Magnesium is 1.7. PTH level is pending. CURRENT INPATIENT MEDICATIONS: The patient's medications were all reviewed by myself. She continues to be on Glendy Ciel 20 mEq and D5 half-normal saline at 100 mL/hour. She is on Sensipar 60 mg p.o. three times a day. She continues to be on Calcitonin, but hospital supply of Calcitonin is going to run out soon. ASSESSMENT AND PLAN: 1. Hypercalcemia associated with primary hyperparathyroidism. Continue Sensipar 60 mg p.o. q. 8 hourly. Hospital is going to run out of Calcitonin, new doses are not available. Continue IV fluid hydration. She was already given Xgeva. If calcium stays high, then Sensipar dose will be increased. 2. Hypertension. Continue labetalol and amlodipine. 3. Acute kidney injury superimposed on chronic kidney disease. The patient is getting IV fluid hydration. Hypercalcemia persists and because of that, her creatinine is higher than her baseline. 4. Anemia and chronic kidney disease. Iron levels are within the acceptable range. If hemoglobin level drops below 10, then Aranesp will be given.
[2020-11-03] MEDS: CINACALCET 30 MG TAB (SENSIPAR) PO SCH ×3 (09:08→21:38)
[2020-11-03] MEDS: FAMOTIDINE 20 MG TAB PO SCH (09:08)
[2020-11-03] MEDS: MAGNESIUM OXIDE 400MG TAB (MAG-OX) PO SCH ×2 (09:09→21:38)
[2020-11-03] MEDS: FERROUS SULFATE 325MG TAB PO SCH (09:09)
[2020-11-03] MEDS: LABETALOL 100MG TAB PO SCH ×2 (09:09→21:38)
[2020-11-03] MEDS: CYANOCOBALAMIN 500 MCG TAB PO SCH (09:10)
[2020-11-03] MEDS: FOLIC ACID 1 MG TAB PO SCH (09:10)
[2020-11-03] MEDS: HEPARIN SOD (PORCINE) 5000UNITS/ML 1ML VIAL/SYRINGE SC SCH ×2 (09:11→21:39)
[2020-11-03 14:00] VITALS: BP 133/74
--- NOTE | 2020-11-03 15:19 | IPNPDOC ---
Text Note Date of Service The patient was seen on 11/03/20. NOTE Subjective: -No acute complaints -No acute overnight events Objective: Constitutional: Awake and alert, in no apparent distress, frail appearing elderly female. ENT: Sclera are clear and anicteric. Mucosa is moist. Respiratory: Diminished airflow bilaterally. No respiratory distress, no crackles or wheezing Cardiovascular: Regular rate and rhythm, no murmur Gastrointestinal: Abdomen is soft, non distended, non tender, normoactive bowel sounds Musculoskeletal: No lower extremity edema. Neurologic: No focal neurological deficit. Mental Status: A&O x2, normal affect Skin: Healing ecchymosis on right side of face Labs: Reviewed Mag 2 WBC 3.2 Hgb 9.8 Platelets 166 Cr 1.59 ca 10.5 Assessment/plan: 85-year-old W with a history of hypertension, dementia, primary hyperparathyroidism who was recently discharged a few days ago due to hypercalcemia who was found again at the custodial during follow-up blood work to have hypercalcemia and found to have acute kidney injury. Admitted for management and evaluation with nephrology consulted. # Hypercalcemia secondary to primary hyperparathyroidism: -Nephrology consulted, Recommended continuing her Sensipar and calcitonin, but hospital is now out of calcitonin, continuing IVFs. Likely to increase sensipar dose with persistent hyperCa -Trend Ca and ionized calcium -s/p Denosumab on 10/31 #LUISANA on CKD: Cr elevated from baseline to 1.4 initially, initially improved to 1.2 now back up to 1.59. LUISANA 2/2 hyperCa on CKD. -IVFs NS with K. -Trend BMP. -Avoid nephrotoxins. -Nephrology consulted. # Hypokalemia: replaced. Resolved. # Hypertension: Continue home meds. # Dementia: continue quetiapine. # DVT prophylaxis: Heparin VS,Fishbone, I+O VS, Fishbone, I+O Laboratory Tests 11/03/20 05:51 Vital Signs Date Time Temp Pulse Resp B/P (MAP) Pulse Ox O2 Delivery O2 Flow Rate FiO2 11/03/20 06:00 98.1 78 17 137/70 (92) 95 Room Air I&O- Last 24 Hours up to 6 AM 11/03/20 06:00 Intake Total 2340 ml Output Total 900 ml Balance 1440 ml KIM QUINONES MD November 03, 2020 08:57
--- NOTE | 2020-11-03 16:22 | IPN ---
NEPHROLOGY PROGRESS NOTE DATE: 11/03/2020 SUBJECTIVE: Patient was seen and examined at the bedside today morning. She is afebrile, hemodynamically stable. She continues to be on intravenous (IV) fluid hydration. Calcitonin was stopped yesterday. Hypocalcemia is slowly getting better. Serum calcium is 10.5 today. Her renal function still has not improved back to baseline. Creatinine is 1.5 at this time. OBJECTIVE: VITAL SIGNS: Temperature 98.1 degrees Fahrenheit, blood pressure 137/70, pulse 78, respiratory rate 17, saturating 95% on room air. INTAKE AND OUTPUT: Urine output recorded as 1700 mL yesterday, 750 mL so far today since overnight. Weight in the bed scale is not available. PHYSICAL EXAMINATION: GENERAL: Patient is awake, alert, oriented times two, laying in bed, no apparent distress. HEAD AND NECK EXAM: Extraocular muscles intact. Pupils equally round and reactive to light. Mucous membranes are moist. Neck is supple. There is no jugular venous distention (JVD). CARDIOVASCULAR: S1, S2. Regular rate. No edema of the bilateral lower extremities. RESPIRATORY: Chest is clear to auscultation bilaterally. Bilateral equal air entry. No rales or rhonchi. ABDOMEN: Soft. Positive bowel sounds. Nontender. No organomegaly LABORATORY REVIEW: CBC showed WBC 3.2, hemoglobin 9.8, platelets 766. BMP showed sodium 136, potassium 4.2, chloride 105, bicarbonate 24, BUN 22, creatinine 1.59, calcium 10.5. CURRENT INPATIENT MEDICATIONS: Patient's medications were all reviewed by myself. She continues to be on IV fluid hydration. Calcitonin is stopped. She is on Sensipar 60 mg by mouth three times a day. No other significant change in the medications today. ASSESSMENT AND PLAN: 1. Hypercalcemia associated with primary hyperparathyroidism. Continue current dose of Sensipar. Continue IV fluid hydration. They will be stopped when calcium level drops below 10. She is status post Xgeva. 2. Hypertension. Continue labetalol and amlodipine. 3. Acute kidney injury superimposed on chronic kidney disease. Continue IV fluid hydration for now. IV fluids are stopped when calcium is better. Creatinine is stable at 1.5. 4. Anemia in chronic kidney disease. Iron levels are adequate. Hemoglobin level is stable for now. No need of erythropoiesis stimulating agents (MOLLY) at this time.
[2020-11-03] MEDS: QUEtiapine FUMARATE 25 MG TAB PO SCH (21:38)
[2020-11-03 22:00] VITALS: BP 126/70
[2020-11-04] MEDS: KCL 20MEQ IN D5/0.45NS 1000ML 1,000 ML IV SCH (02:29)
[2020-11-04 06:00] VITALS: BP 147/69
[2020-11-04 07:19] LABS: HEMATOCRIT 29.5 % (36.0-47.0); HEMOGLOBIN 9.7 g/dl (12.0-15.5); MEAN CORPUSCULAR HEMOGLOBIN 32.1 pg (27.0-33.0); MEAN CORPUSCULAR HGB CONC 32.9 g/dl (32.0-36.5); MEAN CORPUSCULAR VOLUME 97.7 fl (80.0-96.0); PLATELET COUNT, AUTOMATED 159 10^3/uL (150-450); RED BLOOD COUNT 3.02 10^6/uL (4.00-5.40)
[2020-11-04 07:44] LABS: ALBUMIN 3.3 GM/DL (3.2-5.2); BILIRUBIN,TOTAL 0.3 MG/DL (0.2-1.0); CALCIUM LEVEL 9.5 MG/DL (8.8-10.2); CREATININE FOR GFR 1.54 MG/DL (0.55-1.30); GLOMERULAR FILTRATION RATE 34.1 (>32); MAGNESIUM LEVEL 1.9 MG/DL (1.8-2.4); POTASSIUM SERUM 4.1 MEQ/L (3.5-5.1); TOTAL PROTEIN 6.3 GM/DL (6.4-8.2)
[2020-11-04] MEDS: CYANOCOBALAMIN 500 MCG TAB PO SCH (09:39)
[2020-11-04] MEDS: FAMOTIDINE 20 MG TAB PO SCH (09:39)
[2020-11-04] MEDS: HEPARIN SOD (PORCINE) 5000UNITS/ML 1ML VIAL/SYRINGE SC SCH ×2 (09:39→20:33)
[2020-11-04] MEDS: FERROUS SULFATE 325MG TAB PO SCH (09:39)
[2020-11-04] MEDS: CINACALCET 30 MG TAB (SENSIPAR) PO SCH ×3 (09:40→20:32)
[2020-11-04] MEDS: MAGNESIUM OXIDE 400MG TAB (MAG-OX) PO SCH ×2 (09:40→20:32)
[2020-11-04] MEDS: FOLIC ACID 1 MG TAB PO SCH (09:40)
[2020-11-04] MEDS: LABETALOL 100MG TAB PO SCH ×2 (09:41→20:33)
[2020-11-04 11:43] LABS: PTH INTACT 1266.5 PG/ML (18.5-88.0)
--- NOTE | 2020-11-04 13:11 | IPNPDOC ---
Text Note Date of Service The patient was seen on 11/04/20. NOTE Subjective: -No acute complaints -No acute overnight events Objective: Constitutional: Awake and alert, in no apparent distress, frail appearing elderly female. ENT: Sclera are clear and anicteric. Mucosa is moist. Respiratory: Diminished airflow bilaterally. No respiratory distress, no crackles or wheezing Cardiovascular: Regular rate and rhythm, no murmur Gastrointestinal: Abdomen is soft, non distended, non tender, normoactive bowel sounds Musculoskeletal: No lower extremity edema. Neurologic: No focal neurological deficit. Mental Status: A&O x2, normal affect Skin: Healing ecchymosis on right side of face Labs: Reviewed Cr 1.54 ica 5.4 Assessment/plan: 85-year-old W with a history of hypertension, dementia, primary hyperparathyroidism who was recently discharged a few days ago due to hypercalcemia who was found again at the [facility] during follow-up blood work to have hypercalcemia and found to have acute kidney injury. Admitted for management and evaluation with nephrology consulted. # Hypercalcemia secondary to primary hyperparathyroidism: -Nephrology consulted, Recommended continuing her Sensipar and calcitonin, but hospital is now out of calcitonin, continuing IVFs. Likely to increase sensipar dose with persistent hyperCa -Trend Ca and ionized calcium -s/p Denosumab on 10/31 #LUISANA on CKD: Cr elevated from baseline to 1.4 initially, initially improved to 1.2 now back up to 1.59. LUISANA 2/2 hyperCa on CKD. -s/p IVFs -Trend BMP. -Avoid nephrotoxins. -Nephrology consulted. # Hypokalemia: replaced. Resolved. # Hypertension: Continue home meds. # Dementia: continue quetiapine. # DVT prophylaxis: Heparin VS,Fishbone, I+O VS, Fishbone, I+O Laboratory Tests 11/04/20 06:33 Vital Signs Date Time Temp Pulse Resp B/P (MAP) Pulse Ox O2 Delivery O2 Flow Rate FiO2 11/04/20 09:40 76 131/70 11/04/20 06:00 97.5 17 97 Room Air I&O- Last 24 Hours up to 6 AM 11/04/20 06:00 Intake Total 2910 ml Output Total 1750 ml Balance 1160 ml KIM QUINONES MD November 04, 2020 10:35
[2020-11-04 14:00] VITALS: BP 130/69
--- NOTE | 2020-11-04 16:19 | IPN ---
PROGRESS NOTE DATE: 11/04/2020 SUBJECTIVE: Josee is seen and examined this morning at the bedside. She denies any complaints. No overnight events reported. Her calcium levels have improved nicely after a dose of denosumab on 10/31. I checked her prior records and she previously also received a dose of denosumab in late 04/2020. The patient denies any chest pain, nausea, vomiting, or shortness of breath. OBJECTIVE: VITAL SIGNS: Temperature 97.5, pulse 76, respiratory rate 17, blood pressure 147/69, saturating 97% on room air. INTAKE AND OUTPUT: Intake yesterday was 3.2 liters, urine output was recorded as 1 liter, but there were three additional voids recorded and four bowel movements. Weight on the bed scale today is not recorded. GENERAL: The patient is seen awake, alert, comfortable, elderly and frail female, lying in bed with the head of the bed elevated in no distress. HEENT: Extraocular muscles are intact. There is no jugular venous distention. Her tongue is moist. HEART: Sounds are regular. S1, S2. There is no peripheral edema. There is no dependent edema. LUNGS: Show symmetric air entry. No crackles or rhonchus. ABDOMEN: Soft and there are bowel sounds. SKIN: Warm and dry. EXTREMITIES: Negative for clubbing, cyanosis, or edema. LABORATORY DATA: Today's labs show white count 3.0, hemoglobin 9.7, platelets 159,000. Sodium 136, potassium 4.1, BUN 22, creatinine 1.5. Calcium 9.5 with ionized calcium of 5.4, magnesium 1.9, and albumin of 3.3. INPATIENT MEDICATIONS: I stopped her IV fluids yesterday evening. There is no other change noted in her medications. PROBLEMS: 1. Hypercalcemia secondary to primary hyperparathyroidism. The patient continues on Sensipar. Her calcium levels have improved significantly. Her ionized calcium is only minimally elevated at 5.4 today. I stopped her intravenous (IV) fluids yesterday evening. She received a dose of Xgeva on this admission and when I reviewed her prior records, she had also received a dose of Xgeva back in 04/2020 (her calcium level had been greater than 18 at that time). 2. Hypertension. She continues on labetalol and amlodipine and blood pressures are well-controlled. 3. Hypomagnesemia. She continues on magnesium supplementation with satisfactory magnesium level. 4. Acute kidney injury (LUISANA) on chronic kidney disease (CKD) stage II. Baseline creatinine appears to be 1. The patient has mild LUISANA with peak creatinine of 1.5 and it remains stable at this time. I stopped her IV fluids yesterday evening. Her medications are appropriate for her glomerular filtration rate (GFR). I would keep her off of angiotensin converting enzyme inhibitor (SHAI), angiotensin receptor jeannine (ARB), diuretic. 5. Disposition: The patient has a history of primary hyperparathyroidism and recurrent hypercalcemia. She was dosed with denosumab in 04/2020 and now required redosing on this admission. She is likely to develop hypocalcemia over the coming few weeks due to the effect of denosumab. She should follow-up in the nephrology office given her current mild acute kidney injury and for ongoing management of her calcium issues.
[2020-11-04] MEDS: QUEtiapine FUMARATE 25 MG TAB PO SCH (20:32)
[2020-11-04 22:00] VITALS: BP 137/69
[2020-11-05 06:00] VITALS: BP_SYST 112; BP_SYST 138; BP_DIAS 65; BP_DIAS 68
[2020-11-05 06:19] LABS: HEMATOCRIT 29.8 % (36.0-47.0); HEMOGLOBIN 9.9 g/dl (12.0-15.5); MEAN CORPUSCULAR HEMOGLOBIN 31.8 pg (27.0-33.0); MEAN CORPUSCULAR HGB CONC 33.2 g/dl (32.0-36.5); MEAN CORPUSCULAR VOLUME 95.8 fl (80.0-96.0); PLATELET COUNT, AUTOMATED 167 10^3/uL (150-450); RED BLOOD COUNT 3.11 10^6/uL (4.00-5.40); WHITE BLOOD COUNT 3.6 10^3/uL (4.0-10.0)
[2020-11-05 06:50] LABS: ALBUMIN 3.5 GM/DL (3.2-5.2); BILIRUBIN,TOTAL 0.3 MG/DL (0.2-1.0); CALCIUM LEVEL 9.6 MG/DL (8.8-10.2); CREATININE FOR GFR 1.62 MG/DL (0.55-1.30); GLOMERULAR FILTRATION RATE 32.1 (>32); MAGNESIUM LEVEL 2.2 MG/DL (1.8-2.4); POTASSIUM SERUM 4.2 MEQ/L (3.5-5.1)
[2020-11-05 08:18] VITALS: BP 130/66
[2020-11-05] MEDS: FOLIC ACID 1 MG TAB PO SCH (08:18)
[2020-11-05] MEDS: LABETALOL 100MG TAB PO SCH (08:18)
[2020-11-05] MEDS: CINACALCET 30 MG TAB (SENSIPAR) PO SCH (08:18)
[2020-11-05] MEDS: FAMOTIDINE 20 MG TAB PO SCH (08:18)
[2020-11-05] MEDS: CYANOCOBALAMIN 500 MCG TAB PO SCH (08:19)
[2020-11-05] MEDS: MAGNESIUM OXIDE 400MG TAB (MAG-OX) PO SCH (08:19)
[2020-11-05] MEDS: FERROUS SULFATE 325MG TAB PO SCH (08:19)
[2020-11-05] MEDS: HEPARIN SOD (PORCINE) 5000UNITS/ML 1ML VIAL/SYRINGE SC SCH (08:19)
--- NOTE | 2020-11-05 11:11 | DS.PDOC ---
Discharge Summary General Date of Admission November 01, 2020 at 12:14 Date of Discharge 11/05/2020 Attending Physician: KIM QUINONES MD Discharge Summary PROCEDURES PERFORMED DURING STAY: None ADMITTING DIAGNOSES: Hypercalcemia DISCHARGE DIAGNOSES: Hypercalcemia secondary to primary hyperparathyroidism Primary hyperparathyroidism Hypertension Dementia LUISANA on CKD COMPLICATIONS/CHIEF COMPLAINT: Hypercalcemia. HISTORY OF PRESENT ILLNESS: 85-year-old W who lives at the [facility] who was just recently discharged due to hypercalcemia secondary to primary hyperparathyroidism. During follow-up blood work patient was found to have high calcium again despite being on calcitonin and Sensipar. Case was discussed with nephrology Dr. Alegria who recommended the patient be admitted and that he will see the patient in the morning. HOSPITAL COURSE: In the ED, she reported feeling fine she appeared to be asymptomatic. She denied any vision changes denies headaches, chest pain, palpitations, shortness of breath, abdominal pain, nausea or vomiting, fevers or chills. She was not a very good historian due to her dementia. She was otherwise oriented to self and knew her date of and place knew she was in the hospital. She was admitted with nephrology consult and this admission received a dose of denosumab, calcitonin and continued sensipar as well as fluids. Her Ca finally improved. She also had an LUISANA 2/2 to the hyperCa. I discussed her hyperCa and LUISANA with nephrology and on 11/05 Dr. Naun Otto provided perspective that denosumab had actually allowed her a few months of normal Ca levels that even went low as well as would be expected, but she now had returned to the persistent hypercalcemic state, so they gave her another dose this admission and expect that she will likely have improved hypercalcemia and normalization for a few months before she likely will develop hypercalcemia again. At this time her LUISANA is significant but thankfully electrolytes and acid/base status is normal and she is making adequate urine and is euvolemic and Dr. Otto recommended discharge back to [facility] with close nephrology workup as her LUISANA will likely take time to recover and resolve given the recent hypercalcemia. I discussed this with Adelina of [facility] nursing given their concern for 48h readmission for the same clinical problem. DISCHARGE MEDICATIONS: Please see below. ALLERGIES: Please see below. PHYSICAL EXAMINATION ON DISCHARGE: VITAL SIGNS: Please see below. Constitutional: Awake and alert, in no apparent distress, frail appearing elderly female. ENT: Sclera are clear and anicteric. Mucosa is moist. Respiratory: Diminished airflow bilaterally. No respiratory distress, no crackles or wheezing Cardiovascular: Regular rate and rhythm, no murmur Gastrointestinal: Abdomen is soft, non distended, non tender, normoactive bowel sounds Musculoskeletal: No lower extremity edema. Neurologic: No focal neurological deficit. Mental Status: A&O x2, normal affect Skin: no noted rashes LABORATORY DATA: Please see below. IMAGING: None PROGNOSIS: Fair, has hypercalcemia 2/2 primary hyperparathyroidism and has not had definitive treatment which would be surgery and is being managed medically with recurrent episodes. ACTIVITY: As tolerated DIET: 2g sodium DISCHARGE PLAN: [facility] with nephrology follow up. DISPOSITION: [facility] DISCHARGE INSTRUCTIONS: [facility] with nephrology follow up. ITEMS TO FOLLOWUP ON ON OUTPATIENT: Hypercalcemia - [facility] with nephrology follow up. DISCHARGE CONDITION: Stable TIME SPENT ON DISCHARGE: 43 minutes. Vital Signs/I&Os Vital Signs Date Time Temp Pulse Resp B/P (MAP) Pulse Ox O2 Delivery O2 Flow Rate FiO2 11/05/20 08:18 67 130/66 11/05/20 06:00 97.2 16 97 Room Air I&O- Last 24 Hours up to 6 AM 11/05/20 06:00 Intake Total 250 ml Output Total 950 ml Balance -700 ml Laboratory Data Labs 24H Laboratory Tests 2 11/05/20 06:04: Nucleated Red Blood Cells % (auto) 0.0, Anion Gap 7L, Glomerular Filtration Rate 32.1, Calcium Level 9.6, Magnesium Level 2.2, Total Bilirubin 0.3, Aspartate Amino Transf (AST/SGOT) 20, Alanine Aminotransferase (ALT/SGPT) 34, Alkaline Phosphatase 86, Total Protein 7.0, Albumin 3.5, Albumin/Globulin Ratio 1.0L 11/05/20 08:27: Coronavirus (COVID-19)(PCR) NEGATIVE CBC/BMP Laboratory Tests 11/05/20 06:04 Microbiology Microbiology 10/30/20 Respiratory Virus Panel (PCR) ([facility]) - Final, Complete Discharge Medications Scheduled Amlodipine Besylate (Amlodipine Besylate) 2.5 Mg Tablet, 2.5 MG PO DAILY, (Reported) Cinacalcet (Sensipar) 30 Mg Tablet, 60 MG PO TID, (Reported) Cyanocobalamin (Vitamin B-12) (Vitamin B-12) 500 Mcg Tablet, 500 MCG PO DAILY, (Reported) Famotidine (Famotidine) 20 Mg Tablet, 20 MG PO DAILY, (Reported) Ferrous Sulfate (Iron) 325 Mg Tablet, 325 MG PO DAILY, (Reported) Folic Acid (Folic Acid) 1 Mg Tablet, 1 MG PO DAILY, (Reported) Labetalol HCl (Labetalol HCl) 100 Mg Tablet, 100 MG PO BID, (Reported) Magnesium Oxide (Magnesium) 400 Mg Capsule, 800 MG PO BID, (Reported) Quetiapine Fumarate (Quetiapine Fumarate) 25 Mg Tablet, 25 MG PO QHS, (Reported) Vitamin D (Vitamin D3) 10 Mcg Tablet, 15 MCG PO DAILY, (Reported) [Calcitonin [place]] , 400 UNIT SQ Q12H, (Reported) STARTED 10/29/20 FOR 10 DAYS Scheduled PRN Acetaminophen (Acetaminophen) 325 Mg Tablet, 650 MG PO Q4H PRN for PAIN, (Reported) Bisacodyl (Dulcolax) 10 Mg Supp.rect, 10 MG TX DAILY PRN for CONSTIPATION, (Reported) Docusate Sodium (Colace) 100 Mg Capsule, 200 MG PO QHS PRN for CONSTIPATION, (Reported) Magnesium Hydroxide (Milk of Magnesia) 400 Mg/5 Ml Oral.susp, 10 ML PO DAILY PRN for CONSTIPATION, (Reported) Sodium Phosphate,[place]-Dibasic (Enema) 133 Ml Enema, 1 ANNA TX DAILY PRN for CONSTIPATION, (Reported) Allergies Coded Allergies: No Known Drug Allergies (Verified Allergy, Unknown, 10/30/20) KIM QUINONES MD November 05, 2020 10:24
--- NOTE | 2020-11-05 20:50 | IPN ---
PROGRESS NOTE DATE: 11/05/2020 SUBJECTIVE: The patient is seen and examined this morning at the bedside. She denies any complaint. She is discharge pending. Her calcium levels have normalized and her renal function has plateaued with creatinine 1.5 to 1.6. She denies any shortness of breath, chest pain, nausea, vomiting, or diarrhea. OBJECTIVE: VITAL SIGNS: Temperature 97.2, pulse 67, respiratory rate 16, blood pressure 138/68, saturating 97% on room air. INTAKE AND OUTPUT: Intake yesterday was recorded only as 850 mL and it was likely not fully recorded. Urine output yesterday was 1650. Weight on the bed scale was not recorded. GENERAL: The patient is seen lying in bed, elderly female in no apparent distress, cooperative with physical exam, and answers simple questions appropriately. HEENT: Extraocular muscles are intact. Tongue is moist. She is edentulous. NECK: Supple. Jugular veins are not elevated. HEART: Sounds are regular. S1, S2. There is no peripheral edema. There is no dependent edema. LUNGS: Show symmetric air entry. No crackle or rhonchus. ABDOMEN: Soft and nontender. SKIN: Warm and dry. EXTREMITIES: Negative for clubbing, cyanosis, or edema. LABORATORY DATA: Sodium 138, potassium 4.2, bicarbonate 24, BUN 26, creatinine 1.6, calcium 9.6, magnesium 2.2, albumin 3.5. Hemoglobin 9.9, platelets 167,000. INPATIENT MEDICATIONS: Reviewed by myself and no changes noted as compared to yesterday. PROBLEMS: 1. Hypercalcemia secondary to secondary primary hyperparathyroidism. Her nuclear medicine parathyroid scan failed to reveal any localized adenoma. She likely has parathyroid hyperplasia. Her PTH level was 1200. Hypercalcemia has been a recurrent problem for her. She received a dose of denosumab in 04/2020 and she was redosed denosumab on this admission. Her calcium levels have now normalized. She is on cinacalcet as well. She will need to follow-up in the nephrology office for regular monitoring of her calcium levels as she is likely to become hypocalcemic down the road (given effect of denosumab). 2. Hypertension. Continue labetalol and amlodipine. No changes are being made. Blood pressures are well-controlled. 3. Hypomagnesemia. She is on quite a high dose of magnesium supplementation. Her magnesium level will need to be rechecked closely in the outpatient setting. 4. Acute kidney injury superimposed on chronic kidney disease (CKD) stage II. Baseline creatinine appears to be 1. The patient has a mild acute kidney injury with peak creatinine of 1.6. She received IV fluids on this admission. She is not suitable for any angiotensin converting enzyme inhibitor (SHAI), angiotensin receptor jeannine (ARB), diuretic, or nonsteroidal anti-inflammatory drugs (NSAIDs) at this time. We will follow her in the nephrology office for further monitoring of her renal function. Continue with supportive care.
== END 2020-11-05 12:56 | DRG 644 ==
LOC: M ED 12:30 → M ED INP 15:25 → ENRESERV 16:28 → M MSPAV 17:22 → OBSVTOIN 11-01 12:14
PROVIDERS: ADMIT Family Medicine; ATTEND Internal Medicine
DX: E21.2 Other hyperparathyroidism (principal); N17.9 Acute kidney failure, unspecified; I12.9 Hypertensive chronic kidney disease with stage 1 through stage 4 chronic kidney disease, or unspecified chronic kidney disease; N18.2 Chronic kidney disease, stage 2 (mild); D63.1 Anemia in chronic kidney disease; F03.90 Unspecified dementia, unspecified severity, without behavioral disturbance, psychotic disturbance, mood disturbance, and anxiety; Z66 Do not resuscitate; Z20.822 Contact with and (suspected) exposure to COVID-19; Z79.899 Other long term (current) drug therapy

== ENCOUNTER → 2020-10-30 | Outpatient (REF) | payer MEDICARE, MEDICAID ==
[2020-10-30 09:21] LABS: ALBUMIN 3.6 GM/DL (3.2-5.2); CALCIUM LEVEL 12.1 MG/DL (8.8-10.2); CREATININE FOR GFR 1.43 MG/DL (0.55-1.30); GLOMERULAR FILTRATION RATE 37.1 (>32); MAGNESIUM LEVEL 1.8 MG/DL (1.8-2.4); PHOSPHORUS LEVEL 3.3 MG/DL (2.5-4.9); POTASSIUM SERUM 3.1 MEQ/L (3.5-5.1)
== END ==
LOC: SKLAB3 06:57
PROVIDERS: ATTEND Internal Medicine
DX: E21.2 Other hyperparathyroidism (principal)

== ENCOUNTER → 2020-10-31 | Outpatient (REF) | payer MEDICAID, MEDICARE ==
[~2020-10-31] MED LIST changes: +AMLO2.5T3 PO
== END ==
LOC: SKLAB3 07:00
PROVIDERS: ATTEND Internal Medicine
DX: Z53.8 Procedure and treatment not carried out for other reasons (principal)

== ENCOUNTER → 2020-11-06 | Outpatient (REF) ==
[2020-11-06 09:36] LABS: CALCIUM LEVEL 9.6 MG/DL (8.8-10.2); CREATININE FOR GFR 1.69 MG/DL (0.55-1.30); GLOMERULAR FILTRATION RATE 30.6 (>32); MAGNESIUM LEVEL 1.7 MG/DL (1.8-2.4); PHOSPHORUS LEVEL 2.5 MG/DL (2.5-4.9); POTASSIUM SERUM 4.1 MEQ/L (3.5-5.1)
== END ==
LOC: SKLAB3 07:00
PROVIDERS: ATTEND Internal Medicine
DX: N17.9 Acute kidney failure, unspecified (principal)

== ENCOUNTER → 2020-11-08 | Outpatient (REF) | payer MEDICARE, MEDICAID ==
[2020-11-08 10:15] LABS: CALCIUM LEVEL 9.1 MG/DL (8.8-10.2); CREATININE FOR GFR 1.42 MG/DL (0.55-1.30); GLOMERULAR FILTRATION RATE 37.4 (>32); POTASSIUM SERUM 3.6 MEQ/L (3.5-5.1)
== END ==
LOC: SKLAB3 07:00
PROVIDERS: ATTEND Internal Medicine
DX: N17.9 Acute kidney failure, unspecified (principal)

== ENCOUNTER → 2020-11-12 | Outpatient (REF) | payer MEDICARE, MEDICAID ==
[2020-11-12 09:52] LABS: BASO % 0.6 % (0.0-1.0); EOS % 1.2 % (0.0-3.0); HEMATOCRIT 32.1 % (36.0-47.0); HEMOGLOBIN 10.3 g/dl (12.0-15.5); LYMPH # 0.8 10^3/uL (1.5-5.0); LYMPH % 25.1 % (24.0-44.0); MEAN CORPUSCULAR HEMOGLOBIN 31.5 pg (27.0-33.0); MEAN CORPUSCULAR HGB CONC 32.1 g/dl (32.0-36.5); MEAN CORPUSCULAR VOLUME 98.2 fl (80.0-96.0); MONO # 0.1 10^3/uL (0.0-0.8); NEUTROPHILS # 2.2 10^3/uL (1.5-8.5); NEUTROPHILS % 68.5 % (36.0-66.0); PLATELET COUNT, AUTOMATED 169 10^3/uL (150-450); RED BLOOD COUNT 3.27 10^6/uL (4.00-5.40); WHITE BLOOD COUNT 3.3 10^3/uL (4.0-10.0)
[2020-11-12 10:15] LABS: ALBUMIN 3.6 GM/DL (3.2-5.2); CALCIUM LEVEL 8.7 MG/DL (8.8-10.2); CREATININE FOR GFR 1.25 MG/DL (0.55-1.30); GLOMERULAR FILTRATION RATE 43.4 (>32); MAGNESIUM LEVEL 1.7 MG/DL (1.8-2.4); PHOSPHORUS LEVEL 2.5 MG/DL (2.5-4.9); POTASSIUM SERUM 3.7 MEQ/L (3.5-5.1)
[2020-11-12 10:49] LABS: PTH INTACT 1020.4 PG/ML (18.5-88.0)
== END ==
LOC: SKLAB3 07:00
DX: E83.42 Hypomagnesemia (principal)

== ENCOUNTER → 2020-11-15 | Outpatient (REF) | payer MEDICARE, MEDICAID | LOC: SKLAB3 07:00 | PROVIDERS: ATTEND Internal Medicine | DX: E21.3 Hyperparathyroidism, unspecified (principal) ==

== ENCOUNTER → 2020-11-19 | Outpatient (REF) | payer MEDICARE, MEDICAID ==
[2020-11-19 11:29] LABS: ALBUMIN 3.9 GM/DL (3.2-5.2); CALCIUM LEVEL 9.3 MG/DL (8.8-10.2); CREATININE FOR GFR 1.2 MG/DL (0.55-1.30); GLOMERULAR FILTRATION RATE 45.5 (>32); MAGNESIUM LEVEL 1.8 MG/DL (1.8-2.4); PHOSPHORUS LEVEL 2.2 MG/DL (2.5-4.9); POTASSIUM SERUM 3.6 MEQ/L (3.5-5.1)
[2020-11-19 11:30] LABS: PTH INTACT 950.9 PG/ML (18.5-88.0)
== END ==
LOC: SKLAB3 07:00
PROVIDERS: ATTEND Internal Medicine
DX: E21.3 Hyperparathyroidism, unspecified (principal)

== ENCOUNTER → 2020-11-26 | Outpatient (REF) | payer MEDICARE, MEDICAID ==
[2020-11-26 08:33] LABS: CALCIUM LEVEL 9.8 MG/DL (8.8-10.2); CREATININE FOR GFR 1.18 MG/DL (0.55-1.30); GLOMERULAR FILTRATION RATE 46.3 (>32); MAGNESIUM LEVEL 1.8 MG/DL (1.8-2.4); POTASSIUM SERUM 3.9 MEQ/L (3.5-5.1)
== END ==
LOC: SKLAB3 07:00
PROVIDERS: ATTEND Internal Medicine
DX: E21.2 Other hyperparathyroidism (principal)

== ENCOUNTER → 2020-12-03 | Outpatient (REF) | payer MEDICARE, MEDICAID ==
[2020-12-03 11:43] LABS: CALCIUM LEVEL 9.8 MG/DL (8.8-10.2); CREATININE FOR GFR 1.29 MG/DL (0.55-1.30); GLOMERULAR FILTRATION RATE 41.8 (>32); POTASSIUM SERUM 3.3 MEQ/L (3.5-5.1)
== END ==
LOC: SKLAB3 07:00
PROVIDERS: ATTEND Internal Medicine
DX: E87.5 Hyperkalemia (principal)

== ENCOUNTER → 2020-12-10 | Outpatient (REF) | payer MEDICARE, MEDICAID ==
[2020-12-10 07:22] LABS: BASO % 0.5 % (0.0-1.0); EOS # 0.1 10^3/uL (0.0-0.5); EOS % 1.9 % (0.0-3.0); HEMATOCRIT 32.6 % (36.0-47.0); HEMOGLOBIN 10.8 g/dl (12.0-15.5); LYMPH # 0.8 10^3/uL (1.5-5.0); LYMPH % 19.8 % (24.0-44.0); MEAN CORPUSCULAR HGB CONC 33.1 g/dl (32.0-36.5); MEAN CORPUSCULAR VOLUME 96.7 fl (80.0-96.0); MONO # 0.2 10^3/uL (0.0-0.8); MONO % 5.7 % (2.0-8.0); NEUTROPHILS % 71.4 % (36.0-66.0); PLATELET COUNT, AUTOMATED 176 10^3/uL (150-450); RED BLOOD COUNT 3.37 10^6/uL (4.00-5.40); WHITE BLOOD COUNT 4.2 10^3/uL (4.0-10.0)
[2020-12-10 07:48] LABS: ALBUMIN 4.1 GM/DL (3.2-5.2); CALCIUM LEVEL 10.2 MG/DL (8.8-10.2); CREATININE FOR GFR 1.26 MG/DL (0.55-1.30); PHOSPHORUS LEVEL 2.7 MG/DL (2.5-4.9); POTASSIUM SERUM 3.7 MEQ/L (3.5-5.1)
[2020-12-10 07:49] LABS: CALCIUM LEVEL 10.3 MG/DL (8.8-10.2); CREATININE FOR GFR 1.3 MG/DL (0.55-1.30); GLOMERULAR FILTRATION RATE 41.4 (>32); MAGNESIUM LEVEL 2.1 MG/DL (1.8-2.4); POTASSIUM SERUM 3.7 MEQ/L (3.5-5.1)
[2020-12-10 09:28] LABS: PTH INTACT 1028.2 PG/ML (18.5-88.0)
== END ==
LOC: SKLAB3 07:12
PROVIDERS: ATTEND Internal Medicine
DX: E87.5 Hyperkalemia (principal)

== ENCOUNTER → 2020-12-17 | Outpatient (REF) | payer MEDICARE, MEDICAID ==
[2020-12-17 11:40] LABS: CALCIUM LEVEL 10.6 MG/DL (8.8-10.2); CREATININE FOR GFR 1.32 MG/DL (0.55-1.30); GLOMERULAR FILTRATION RATE 40.7 (>32); MAGNESIUM LEVEL 1.9 MG/DL (1.8-2.4); POTASSIUM SERUM 3.5 MEQ/L (3.5-5.1)
== END ==
LOC: SKLAB3 07:00
PROVIDERS: ATTEND Internal Medicine
DX: E87.5 Hyperkalemia (principal)

== ENCOUNTER → 2020-12-24 | Outpatient (REF) | payer MEDICARE, MEDICAID ==
[2020-12-24 10:34] LABS: CALCIUM LEVEL 10.8 MG/DL (8.8-10.2); CREATININE FOR GFR 1.45 MG/DL (0.55-1.30); GLOMERULAR FILTRATION RATE 36.5 (>32); POTASSIUM SERUM 3.2 MEQ/L (3.5-5.1)
== END ==
LOC: SKLAB3 07:00
PROVIDERS: ATTEND Internal Medicine
DX: E87.5 Hyperkalemia (principal)

== ENCOUNTER → 2020-12-31 | Outpatient (REF) | payer MEDICARE, MEDICAID ==
[2020-12-31 11:01] LABS: CREATININE FOR GFR 1.72 MG/DL (0.55-1.30); MAGNESIUM LEVEL 2.1 MG/DL (1.8-2.4); POTASSIUM SERUM 3.5 MEQ/L (3.5-5.1)
== END ==
LOC: SKLAB3 11:21
PROVIDERS: ATTEND Internal Medicine
DX: E83.52 Hypercalcemia (principal)

== ENCOUNTER → 2021-01-07 | Outpatient (REF) | payer MEDICARE, MEDICAID ==
[2021-01-07 08:26] LABS: CALCIUM LEVEL 10.7 MG/DL (8.8-10.2); CREATININE FOR GFR 1.77 MG/DL (0.55-1.30); MAGNESIUM LEVEL 2.3 MG/DL (1.8-2.4); POTASSIUM SERUM 3.3 MEQ/L (3.5-5.1)
== END ==
LOC: SKLAB3 07:04
PROVIDERS: ATTEND Internal Medicine
DX: E87.5 Hyperkalemia (principal)

== ENCOUNTER → 2021-01-10 | Outpatient (REF) | payer MEDICARE, MEDICAID ==
[~2021-01-10] MED LIST changes: +ASCO500T PO; +CINA60TA3 PO; +D3400TAB PO; -KLOR20TA42 PO; -MAGN400T3 PO; +MAGN400T33 PO; +POTA-141 PO; +POTA10CA32 PO; +PRED10TA2 PO; +QUET1TAB17 PO; -QUET25TA3 PO
[2021-01-10 08:44] LABS: CALCIUM LEVEL 9.7 MG/DL (8.8-10.2); CREATININE FOR GFR 1.42 MG/DL (0.55-1.30); GLOMERULAR FILTRATION RATE 37.4 (>32); POTASSIUM SERUM 4.1 MEQ/L (3.5-5.1)
== END ==
LOC: SKLAB3 07:00
PROVIDERS: ATTEND Internal Medicine
DX: E86.0 Dehydration (principal)

== ENCOUNTER → 2021-01-14 | Outpatient (REF) | payer MEDICARE, MEDICAID ==
[~2021-01-14] MED LIST changes: -ASCO500T PO; -CINA60TA3 PO; -D3400TAB PO; +KLOR20TA42 PO; +MAGN400T3 PO; -MAGN400T33 PO; -POTA-141 PO; -POTA10CA32 PO; -PRED10TA2 PO; -QUET1TAB17 PO; +QUET25TA3 PO
[2021-01-14 09:39] LABS: BASO % 0.3 % (0.0-1.0); EOS # 0.1 10^3/uL (0.0-0.5); EOS % 1.7 % (0.0-3.0); HEMATOCRIT 32.4 % (36.0-47.0); HEMOGLOBIN 10.8 g/dl (12.0-15.5); LYMPH # 0.8 10^3/uL (1.5-5.0); LYMPH % 20.9 % (24.0-44.0); MEAN CORPUSCULAR HEMOGLOBIN 32.5 pg (27.0-33.0); MEAN CORPUSCULAR HGB CONC 33.3 g/dl (32.0-36.5); MEAN CORPUSCULAR VOLUME 97.6 fl (80.0-96.0); MONO # 0.2 10^3/uL (0.0-0.8); MONO % 4.7 % (2.0-8.0); NEUTROPHILS # 2.6 10^3/uL (1.5-8.5); NEUTROPHILS % 71.8 % (36.0-66.0); PLATELET COUNT, AUTOMATED 174 10^3/uL (150-450); RED BLOOD COUNT 3.32 10^6/uL (4.00-5.40); WHITE BLOOD COUNT 3.6 10^3/uL (4.0-10.0)
[2021-01-14 10:04] LABS: ALBUMIN 3.9 GM/DL (3.2-5.2); CALCIUM LEVEL 10.9 MG/DL (8.8-10.2); CREATININE FOR GFR 1.45 MG/DL (0.55-1.30); GLOMERULAR FILTRATION RATE 36.5 (>32); MAGNESIUM LEVEL 1.9 MG/DL (1.8-2.4); PHOSPHORUS LEVEL 2.6 MG/DL (2.5-4.9); POTASSIUM SERUM 3.9 MEQ/L (3.5-5.1)
[2021-01-14 10:14] LABS: PTH INTACT 1469.7 PG/ML (18.5-88.0)
== END ==
LOC: SKLAB3 07:00
PROVIDERS: ATTEND Internal Medicine
DX: N18.9 Chronic kidney disease, unspecified (principal); N25.81 Secondary hyperparathyroidism of renal origin

== ENCOUNTER → 2021-01-21 | Outpatient (REF) | payer MEDICARE, MEDICAID ==
[~2021-01-21] MED LIST changes: +QUET1TAB17 PO; -QUET25TA3 PO
[2021-01-21 09:07] LABS: CALCIUM LEVEL 10.7 MG/DL (8.8-10.2); CREATININE FOR GFR 1.55 MG/DL (0.55-1.30); GLOMERULAR FILTRATION RATE 33.8 (>32); POTASSIUM SERUM 4.5 MEQ/L (3.5-5.1)
== END ==
LOC: SKLAB3 07:00
PROVIDERS: ATTEND Internal Medicine
DX: E21.3 Hyperparathyroidism, unspecified (principal)

== ENCOUNTER → 2021-01-28 | Outpatient (REF) | payer MEDICARE, MEDICAID ==
[2021-01-28 10:51] LABS: CALCIUM LEVEL 11.1 MG/DL (8.8-10.2); CREATININE FOR GFR 1.86 MG/DL (0.55-1.30); GLOMERULAR FILTRATION RATE 27.4 (>32); MAGNESIUM LEVEL 2.1 MG/DL (1.8-2.4)
== END ==
LOC: SKLAB3 07:00
PROVIDERS: ATTEND Internal Medicine
DX: E21.3 Hyperparathyroidism, unspecified (principal)

== ENCOUNTER → 2021-02-04 | Outpatient (REF) | payer MEDICARE, MEDICAID ==
[2021-02-04 08:51] LABS: CALCIUM LEVEL 10.4 MG/DL (8.8-10.2); CREATININE FOR GFR 1.84 MG/DL (0.55-1.30); GLOMERULAR FILTRATION RATE 27.8 (>32); MAGNESIUM LEVEL 2.3 MG/DL (1.8-2.4); POTASSIUM SERUM 4.3 MEQ/L (3.5-5.1)
== END ==
LOC: SKLAB3 07:00
PROVIDERS: ATTEND Internal Medicine
DX: E83.52 Hypercalcemia (principal); D64.9 Anemia, unspecified

== ENCOUNTER → 2021-02-11 | Outpatient (REF) | payer MEDICARE, MEDICAID ==
[2021-02-11 09:06] LABS: CALCIUM LEVEL 10.5 MG/DL (8.8-10.2); CREATININE FOR GFR 1.87 MG/DL (0.55-1.30); GLOMERULAR FILTRATION RATE 27.2 (>32); MAGNESIUM LEVEL 2.4 MG/DL (1.8-2.4); POTASSIUM SERUM 4.2 MEQ/L (3.5-5.1)
== END ==
LOC: SKLAB3 14:44
PROVIDERS: ATTEND Internal Medicine
DX: E83.52 Hypercalcemia (principal)

== ENCOUNTER → 2021-02-18 | Outpatient (REF) | payer MEDICARE, MEDICAID ==
[2021-02-18 10:33] LABS: CALCIUM LEVEL 10.6 MG/DL (8.8-10.2); CREATININE FOR GFR 1.85 MG/DL (0.55-1.30); GLOMERULAR FILTRATION RATE 27.6 (>32); MAGNESIUM LEVEL 2.2 MG/DL (1.8-2.4); POTASSIUM SERUM 4.2 MEQ/L (3.5-5.1)
== END ==
LOC: SKLAB3 09:01
PROVIDERS: ATTEND Internal Medicine
DX: E21.3 Hyperparathyroidism, unspecified (principal)

== ENCOUNTER → 2021-02-25 | Outpatient (REF) | payer MEDICARE, MEDICAID ==
[~2021-02-25] MED LIST changes: -KLOR20TA42 PO; +POTA-141 PO
[2021-02-25 09:21] LABS: CALCIUM LEVEL 10.7 MG/DL (8.8-10.2); CREATININE FOR GFR 1.68 MG/DL (0.55-1.30); GLOMERULAR FILTRATION RATE 30.8 (>32); MAGNESIUM LEVEL 1.9 MG/DL (1.8-2.4)
== END ==
LOC: SKLAB3 07:00
PROVIDERS: ATTEND Internal Medicine
DX: E21.3 Hyperparathyroidism, unspecified (principal)

== ENCOUNTER → 2021-03-04 | Outpatient (REF) | payer MEDICARE, MEDICAID ==
[2021-03-04 09:59] LABS: BLOOD UREA NITROGEN 26 MG/DL (7-18); CALCIUM LEVEL 10.5 MG/DL (8.8-10.2); CARBON DIOXIDE LEVEL 26 MEQ/L (21-32); CHLORIDE LEVEL 106 MEQ/L (98-107); GLOMERULAR FILTRATION RATE 23.8 (>32); GLUCOSE, FASTING 131 MG/DL (70-100); MAGNESIUM LEVEL 2.2 MG/DL (1.8-2.4); SODIUM LEVEL 140 MEQ/L (136-145); TOTAL 25(OH) VITAMIN D 33.7 NG/ML (30.0-100.0)
[2021-03-04 10:00] LABS: VITAMIN B12 LEVEL > 2000 PG/ML (247-911)
== END ==
LOC: SKLAB3 07:00
PROVIDERS: ATTEND Internal Medicine
DX: E21.3 Hyperparathyroidism, unspecified (principal); E55.9 Vitamin D deficiency, unspecified

== ENCOUNTER → 2021-03-06 | Outpatient (REF) | payer MEDICARE, MEDICAID ==
[2021-03-06 14:06] LABS: CALCIUM LEVEL 10.9 MG/DL (8.8-10.2); CREATININE FOR GFR 1.9 MG/DL (0.55-1.30); GLOMERULAR FILTRATION RATE 26.7 (>32); POTASSIUM SERUM 4.7 MEQ/L (3.5-5.1)
== END ==
LOC: SKLAB3 09:15
PROVIDERS: ATTEND Internal Medicine
DX: R94.4 Abnormal results of kidney function studies (principal)

== ENCOUNTER → 2021-03-11 | Outpatient (REF) | payer MEDICARE, MEDICAID ==
[2021-03-11 08:33] LABS: CALCIUM LEVEL 10.4 MG/DL (8.8-10.2); CREATININE FOR GFR 2.07 MG/DL (0.55-1.30); GLOMERULAR FILTRATION RATE 24.2 (>32); MAGNESIUM LEVEL 1.9 MG/DL (1.8-2.4); POTASSIUM SERUM 4.1 MEQ/L (3.5-5.1)
== END ==
LOC: SKLAB3 07:04
PROVIDERS: ATTEND Internal Medicine
DX: E21.3 Hyperparathyroidism, unspecified (principal)

== ENCOUNTER → 2021-03-18 | Outpatient (REF) | payer MEDICARE, MEDICAID ==
[2021-03-18 08:08] LABS: BASO % 0.3 % (0.0-1.0); HEMATOCRIT 25.7 % (36.0-47.0); HEMOGLOBIN 8.6 g/dl (12.0-15.5); LYMPH # 0.7 10^3/uL (1.5-5.0); LYMPH % 24.9 % (24.0-44.0); MEAN CORPUSCULAR HGB CONC 33.5 g/dl (32.0-36.5); MEAN CORPUSCULAR VOLUME 98.5 fl (80.0-96.0); MONO # 0.2 10^3/uL (0.0-0.8); MONO % 6.1 % (2.0-8.0); PLATELET COUNT, AUTOMATED 149 10^3/uL (150-450); RED BLOOD COUNT 2.61 10^6/uL (4.00-5.40); WHITE BLOOD COUNT 2.9 10^3/uL (4.0-10.0)
[2021-03-18 08:28] LABS: ALBUMIN 3.1 GM/DL (3.2-5.2); CALCIUM LEVEL 10.1 MG/DL (8.8-10.2); CREATININE FOR GFR 2.11 MG/DL (0.55-1.30); GLOMERULAR FILTRATION RATE 23.7 (>32); MAGNESIUM LEVEL 1.9 MG/DL (1.8-2.4); POTASSIUM SERUM 4.2 MEQ/L (3.5-5.1)
[2021-03-18 08:58] LABS: PTH INTACT 1068.4 PG/ML (18.5-88.0)
== END ==
LOC: SKLAB3 03-17 07:00
PROVIDERS: ATTEND Internal Medicine
DX: E21.3 Hyperparathyroidism, unspecified (principal)

== ENCOUNTER → 2021-03-19 | Outpatient (REF) | payer MEDICARE, MEDICAID ==
[2021-03-19 12:24] LABS: HEMATOCRIT 24.9 % (36.0-47.0); HEMOGLOBIN 8.5 g/dl (12.0-15.5); MEAN CORPUSCULAR HEMOGLOBIN 33.6 pg (27.0-33.0); MEAN CORPUSCULAR HGB CONC 34.1 g/dl (32.0-36.5); MEAN CORPUSCULAR VOLUME 98.4 fl (80.0-96.0); PLATELET COUNT, AUTOMATED 142 10^3/uL (150-450); RED BLOOD COUNT 2.53 10^6/uL (4.00-5.40); WHITE BLOOD COUNT 3.2 10^3/uL (4.0-10.0)
[2021-03-19 12:25] LABS: BASO % 0.3 % (0.0-1.0); EOS % 1.3 % (0.0-3.0); HEMATOCRIT 25.6 % (36.0-47.0); HEMOGLOBIN 8.5 g/dl (12.0-15.5); LYMPH # 0.7 10^3/uL (1.5-5.0); LYMPH % 22.7 % (24.0-44.0); MEAN CORPUSCULAR HEMOGLOBIN 32.9 pg (27.0-33.0); MEAN CORPUSCULAR HGB CONC 33.2 g/dl (32.0-36.5); MEAN CORPUSCULAR VOLUME 99.2 fl (80.0-96.0); MONO # 0.2 10^3/uL (0.0-0.8); NEUTROPHILS # 2.1 10^3/uL (1.5-8.5); NEUTROPHILS % 69.4 % (36.0-66.0); PLATELET COUNT, AUTOMATED 149 10^3/uL (150-450); RED BLOOD COUNT 2.58 10^6/uL (4.00-5.40)
== END ==
LOC: SKLAB3 07:00
PROVIDERS: ATTEND Internal Medicine
DX: D64.9 Anemia, unspecified (principal)

== ENCOUNTER → 2021-03-25 | Outpatient (REF) | payer MEDICARE, MEDICAID ==
[2021-03-25 14:51] LABS: HEMATOCRIT 25.9 % (36.0-47.0); HEMOGLOBIN 8.7 g/dl (12.0-15.5); MEAN CORPUSCULAR HEMOGLOBIN 33.6 pg (27.0-33.0); MEAN CORPUSCULAR HGB CONC 33.6 g/dl (32.0-36.5); PLATELET COUNT, AUTOMATED 160 10^3/uL (150-450); RED BLOOD COUNT 2.59 10^6/uL (4.00-5.40); WHITE BLOOD COUNT 3.1 10^3/uL (4.0-10.0)
[2021-03-25 15:10] LABS: CALCIUM LEVEL 9.8 MG/DL (8.8-10.2); CREATININE FOR GFR 1.86 MG/DL (0.55-1.30); GLOMERULAR FILTRATION RATE 27.4 (>32); MAGNESIUM LEVEL 1.9 MG/DL (1.8-2.4); POTASSIUM SERUM 4.4 MEQ/L (3.5-5.1)
== END ==
LOC: SKLAB3 07:00
PROVIDERS: ATTEND Internal Medicine
DX: E21.3 Hyperparathyroidism, unspecified (principal); D64.9 Anemia, unspecified

== ENCOUNTER → 2021-04-03 | Outpatient (REF) | payer MEDICARE, MEDICAID ==
[~2021-04-03] MED LIST changes: -MAGN400T3 PO; +MAGN400T33 PO
[2021-04-03 12:00] LABS: HEMATOCRIT 25.7 % (36.0-47.0); HEMOGLOBIN 8.5 g/dl (12.0-15.5); MEAN CORPUSCULAR HGB CONC 33.1 g/dl (32.0-36.5); MEAN CORPUSCULAR VOLUME 102.8 fl (80.0-96.0); PLATELET COUNT, AUTOMATED 167 10^3/uL (150-450); WHITE BLOOD COUNT 3.1 10^3/uL (4.0-10.0)
[2021-04-03 12:30] LABS: CALCIUM LEVEL 10.4 MG/DL (8.8-10.2); CREATININE FOR GFR 1.77 MG/DL (0.55-1.30); MAGNESIUM LEVEL 1.9 MG/DL (1.8-2.4); POTASSIUM SERUM 3.9 MEQ/L (3.5-5.1)
== END ==
LOC: SKLAB3 07:45
PROVIDERS: ATTEND Internal Medicine
DX: E21.3 Hyperparathyroidism, unspecified (principal); Z20.822 Contact with and (suspected) exposure to COVID-19
CPT/HCPCS: 36415; 80048; 83735; 85027; U0002

== ENCOUNTER → 2021-04-07 | Outpatient (REF) | payer MEDICARE, MEDICAID | LOC: SKLAB3 07:14 | PROVIDERS: ATTEND Internal Medicine | DX: Z20.822 Contact with and (suspected) exposure to COVID-19 (principal) ==

== ENCOUNTER → 2021-04-08 | Outpatient (REF) | payer MEDICARE, MEDICAID ==
[2021-04-08 08:16] LABS: CALCIUM LEVEL 10.3 MG/DL (8.8-10.2); CREATININE FOR GFR 1.85 MG/DL (0.55-1.30); GLOMERULAR FILTRATION RATE 27.6 (>32); MAGNESIUM LEVEL 1.9 MG/DL (1.8-2.4); POTASSIUM SERUM 4.3 MEQ/L (3.5-5.1)
== END ==
LOC: SKLAB3 06:53
PROVIDERS: ATTEND Internal Medicine
DX: F03.90 Unspecified dementia, unspecified severity, without behavioral disturbance, psychotic disturbance, mood disturbance, and anxiety (principal); I10 Essential (primary) hypertension

== ENCOUNTER → 2021-04-10 | Outpatient (REF) | payer MEDICARE, MEDICAID | LOC: SKLAB3 05:52 | PROVIDERS: ATTEND Internal Medicine | DX: Z20.822 Contact with and (suspected) exposure to COVID-19 (principal) ==

== ENCOUNTER → 2021-04-14 | Outpatient (REF) | payer MEDICARE, MEDICAID | LOC: SKLAB3 06:12 | PROVIDERS: ATTEND Internal Medicine | DX: Z20.822 Contact with and (suspected) exposure to COVID-19 (principal) ==

== ENCOUNTER → 2021-04-15 | Outpatient (REF) | payer MEDICARE, MEDICAID ==
[2021-04-15 10:48] LABS: BASO % 0.3 % (0.0-1.0); EOS % 0.9 % (0.0-3.0); HEMATOCRIT 30.1 % (36.0-47.0); HEMOGLOBIN 9.7 g/dl (12.0-15.5); LYMPH # 0.5 10^3/uL (1.5-5.0); LYMPH % 15.8 % (24.0-44.0); MEAN CORPUSCULAR HEMOGLOBIN 32.9 pg (27.0-33.0); MEAN CORPUSCULAR HGB CONC 32.2 g/dl (32.0-36.5); MONO # 0.2 10^3/uL (0.0-0.8); MONO % 6.9 % (2.0-8.0); NEUTROPHILS # 2.4 10^3/uL (1.5-8.5); NEUTROPHILS % 75.5 % (36.0-66.0); PLATELET COUNT, AUTOMATED 161 10^3/uL (150-450); RED BLOOD COUNT 2.95 10^6/uL (4.00-5.40); WHITE BLOOD COUNT 3.2 10^3/uL (4.0-10.0)
[2021-04-15 11:16] LABS: ALBUMIN 3.3 GM/DL (3.2-5.2); CREATININE FOR GFR 2.47 MG/DL (0.55-1.30); GLOMERULAR FILTRATION RATE 19.8 (>32); MAGNESIUM LEVEL 2.3 MG/DL (1.8-2.4); PHOSPHORUS LEVEL 3.2 MG/DL (2.5-4.9); POTASSIUM SERUM 4.4 MEQ/L (3.5-5.1)
[2021-04-15 11:20] LABS: PTH INTACT 1033.6 PG/ML (18.5-88.0)
== END ==
LOC: SKLAB3 06:00
PROVIDERS: ATTEND Internal Medicine
DX: F03.90 Unspecified dementia, unspecified severity, without behavioral disturbance, psychotic disturbance, mood disturbance, and anxiety (principal); I10 Essential (primary) hypertension

== ENCOUNTER → 2021-04-16 | Outpatient (REF) | payer MEDICARE, MEDICAID ==
[2021-04-16 16:35] LABS: CALCIUM LEVEL 10.2 MG/DL (8.8-10.2); CREATININE FOR GFR 2.26 MG/DL (0.55-1.30); GLOMERULAR FILTRATION RATE 21.9 (>32); POTASSIUM SERUM 4.7 MEQ/L (3.5-5.1)
== END ==
LOC: SKLAB3 11:19
PROVIDERS: ATTEND Nurse Practitioner
DX: U07.1 COVID-19 (principal)

== ENCOUNTER → 2021-04-17 | Outpatient (REF) | payer MEDICARE, MEDICAID | LOC: SKLAB3 11:19 | PROVIDERS: ATTEND Internal Medicine | DX: Z20.822 Contact with and (suspected) exposure to COVID-19 (principal) ==

== ENCOUNTER → 2021-04-18 | Outpatient (REF) | payer MEDICARE, MEDICAID ==
[2021-04-18 11:37] LABS: HEMATOCRIT 26.9 % (36.0-47.0); HEMOGLOBIN 8.9 g/dl (12.0-15.5); MEAN CORPUSCULAR HEMOGLOBIN 33.7 pg (27.0-33.0); MEAN CORPUSCULAR HGB CONC 33.1 g/dl (32.0-36.5); MEAN CORPUSCULAR VOLUME 101.9 fl (80.0-96.0); PLATELET COUNT, AUTOMATED 119 10^3/uL (150-450); RED BLOOD COUNT 2.64 10^6/uL (4.00-5.40); WHITE BLOOD COUNT 2.9 10^3/uL (4.0-10.0)
[2021-04-18 12:44] LABS: ALBUMIN 3.1 GM/DL (3.2-5.2); BILIRUBIN,TOTAL 0.4 MG/DL (0.2-1.0); CALCIUM LEVEL 10.3 MG/DL (8.8-10.2); CREATININE FOR GFR 2.93 MG/DL (0.55-1.30); GLOMERULAR FILTRATION RATE 16.2 (>32); POTASSIUM SERUM 4.4 MEQ/L (3.5-5.1); TOTAL PROTEIN 6.7 GM/DL (6.4-8.2)
== END ==
LOC: SKLAB2 11:07
PROVIDERS: ATTEND Nurse Practitioner
DX: U07.1 COVID-19 (principal); Z79.899 Other long term (current) drug therapy

== ENCOUNTER → 2021-04-19 | Outpatient (REF) | payer MEDICARE, MEDICAID ==
[2021-04-19 07:55] LABS: HEMATOCRIT 24.4 % (36.0-47.0); MEAN CORPUSCULAR HEMOGLOBIN 32.9 pg (27.0-33.0); MEAN CORPUSCULAR HGB CONC 32.8 g/dl (32.0-36.5); MEAN CORPUSCULAR VOLUME 100.4 fl (80.0-96.0); PLATELET COUNT, AUTOMATED 107 10^3/uL (150-450); RED BLOOD COUNT 2.43 10^6/uL (4.00-5.40); WHITE BLOOD COUNT 2.7 10^3/uL (4.0-10.0)
[2021-04-19 08:17] LABS: ALBUMIN 2.7 GM/DL (3.2-5.2); BILIRUBIN,TOTAL 0.3 MG/DL (0.2-1.0); CALCIUM LEVEL 8.9 MG/DL (8.8-10.2); CREATININE FOR GFR 2.56 MG/DL (0.55-1.30); POTASSIUM SERUM 4.2 MEQ/L (3.5-5.1); TOTAL PROTEIN 5.9 GM/DL (6.4-8.2)
== END ==
LOC: SKLAB2 07:00
PROVIDERS: ATTEND Internal Medicine
DX: N17.9 Acute kidney failure, unspecified (principal)

== ENCOUNTER → 2021-04-21 | Outpatient (REF) | payer MEDICARE, MEDICAID ==
[2021-04-21 11:22] LABS: HEMATOCRIT 25.9 % (36.0-47.0); HEMOGLOBIN 8.5 g/dl (12.0-15.5); MEAN CORPUSCULAR HEMOGLOBIN 33.3 pg (27.0-33.0); MEAN CORPUSCULAR HGB CONC 32.8 g/dl (32.0-36.5); MEAN CORPUSCULAR VOLUME 101.6 fl (80.0-96.0); PLATELET COUNT, AUTOMATED 100 10^3/uL (150-450); RED BLOOD COUNT 2.55 10^6/uL (4.00-5.40); WHITE BLOOD COUNT 2.2 10^3/uL (4.0-10.0)
[2021-04-21 12:20] LABS: ALBUMIN 2.7 GM/DL (3.2-5.2); BILIRUBIN,TOTAL 0.4 MG/DL (0.2-1.0); CALCIUM LEVEL 8.5 MG/DL (8.8-10.2); CREATININE FOR GFR 2.16 MG/DL (0.55-1.30); GLOMERULAR FILTRATION RATE 23.1 (>32); MAGNESIUM LEVEL 1.7 MG/DL (1.8-2.4); POTASSIUM SERUM 3.8 MEQ/L (3.5-5.1); TOTAL PROTEIN 6.1 GM/DL (6.4-8.2)
== END ==
LOC: SKLAB2 11:32
PROVIDERS: ATTEND Internal Medicine
DX: U07.1 COVID-19 (principal); Z79.899 Other long term (current) drug therapy

== ENCOUNTER → 2021-04-23 | Outpatient (REF) | payer MEDICARE, MEDICAID ==
[2021-04-23 09:18] LABS: HEMATOCRIT 28.1 % (36.0-47.0); MEAN CORPUSCULAR HEMOGLOBIN 32.6 pg (27.0-33.0); MEAN CORPUSCULAR VOLUME 101.8 fl (80.0-96.0); PLATELET COUNT, AUTOMATED 115 10^3/uL (150-450); RED BLOOD COUNT 2.76 10^6/uL (4.00-5.40); WHITE BLOOD COUNT 2.2 10^3/uL (4.0-10.0)
[2021-04-23 09:32] LABS: ALBUMIN 2.8 GM/DL (3.2-5.2); BILIRUBIN,TOTAL 0.5 MG/DL (0.2-1.0); CALCIUM LEVEL 8.4 MG/DL (8.8-10.2); CREATININE FOR GFR 2.08 MG/DL (0.55-1.30); GLOMERULAR FILTRATION RATE 24.1 (>32); POTASSIUM SERUM 4.5 MEQ/L (3.5-5.1); TOTAL PROTEIN 6.4 GM/DL (6.4-8.2)
== END ==
LOC: SKLAB2 08:25
PROVIDERS: ATTEND Internal Medicine
DX: U07.1 COVID-19 (principal); Z79.899 Other long term (current) drug therapy

== ENCOUNTER → 2021-04-25 | Outpatient (REF) | payer MEDICARE, MEDICAID ==
[~2021-04-25] MED LIST changes: +ASCO500T PO; +CINA60TA3 PO; +D3400TAB PO; +POTA10CA32 PO
[2021-04-25 12:21] LABS: HEMATOCRIT 29.1 % (36.0-47.0); HEMOGLOBIN 9.4 g/dl (12.0-15.5); MEAN CORPUSCULAR HEMOGLOBIN 33.1 pg (27.0-33.0); MEAN CORPUSCULAR HGB CONC 32.3 g/dl (32.0-36.5); MEAN CORPUSCULAR VOLUME 102.5 fl (80.0-96.0); PLATELET COUNT, AUTOMATED 125 10^3/uL (150-450); RED BLOOD COUNT 2.84 10^6/uL (4.00-5.40); WHITE BLOOD COUNT 3.2 10^3/uL (4.0-10.0)
[2021-04-25 12:52] LABS: CALCIUM LEVEL 8.8 MG/DL (8.8-10.2); CREATININE FOR GFR 2.15 MG/DL (0.55-1.30); GLOMERULAR FILTRATION RATE 23.2 (>32); POTASSIUM SERUM 4.1 MEQ/L (3.5-5.1)
== END ==
LOC: SKLAB2 07:00
PROVIDERS: ATTEND Internal Medicine
DX: U07.1 COVID-19 (principal); Z79.899 Other long term (current) drug therapy

== ENCOUNTER 2021-04-28 12:00 | Inpatient (IN) | payer MEDICARE, MEDICAID ==
[~2021-04-28] VITALS: Ht 152.4 cm; Wt 40.9 kg
[~2021-04-28 12:00] MED LIST changes: -ASCO500T PO; -CINA60TA3 PO; -D3400TAB PO; -POTA10CA32 PO
[2021-04-28 12:40] LABS: BASO % 0.3 % (0.0-1.0); EOS % 0.5 % (0.0-3.0); HEMATOCRIT 29.6 % (36.0-47.0); HEMOGLOBIN 9.4 g/dl (12.0-15.5); LYMPH # 0.3 10^3/uL (1.5-5.0); MEAN CORPUSCULAR HEMOGLOBIN 33.3 pg (27.0-33.0); MEAN CORPUSCULAR HGB CONC 31.8 g/dl (32.0-36.5); MONO # 0.1 10^3/uL (0.0-0.8); MONO % 2.7 % (2.0-8.0); NEUTROPHILS # 3.3 10^3/uL (1.5-8.5); NEUTROPHILS % 86.4 % (36.0-66.0); PLATELET COUNT, AUTOMATED 197 10^3/uL (150-450); RED BLOOD COUNT 2.82 10^6/uL (4.00-5.40); WHITE BLOOD COUNT 3.8 10^3/uL (4.0-10.0)
[2021-04-28 13:07] LABS: CK-MB VALUE MASS < 1.0 NG/ML (<3.6); CPK CREATINE PHOSPHOKINASE 20 U/L (26-192); TROPONIN I < 0.02 NG/ML (< 0.10)
[2021-04-28 13:08] LABS: INR 1.06; PARTIAL THROMBOPLASTIN TIME 30.8 SECONDS (25.9-37.0); PROTHROMBIN TIME 14.3 SECONDS (12.7-14.5)
[2021-04-28 13:24] LABS: ALBUMIN 2.6 GM/DL (3.2-5.2); BILIRUBIN,TOTAL 0.5 MG/DL (0.2-1.0); C REACTIVE PROTEIN QUANTITATIV 5.1 MG/DL (0.00-0.30); CALCIUM LEVEL 9.6 MG/DL (8.8-10.2); CREATININE FOR GFR 2.2 MG/DL (0.55-1.30); GLOMERULAR FILTRATION RATE 22.6 (>32); MAGNESIUM LEVEL 2.6 MG/DL (1.8-2.4); POTASSIUM SERUM 5.7 MEQ/L (3.5-5.1); TOTAL PROTEIN 6.9 GM/DL (6.4-8.2)
[2021-04-28] MEDS ORDERED: D5W 1,000 ML IV SCH (15:10)
[2021-04-28 15:49] LABS: D-DIMER QUANT 3243.8 ng/ml (<500)
[2021-04-28] MEDS ORDERED: SOD POLYSTYRENE SULFONATE SUSP 15 GM/60 ML UD PO ONE ×2 (16:00→18:10)
[2021-04-28] MEDS ORDERED: POTA10CA32 PO (16:32)
[2021-04-28] MEDS ORDERED: ASCO500T PO (16:32)
[2021-04-28] MEDS ORDERED: CINA60TA3 PO (16:32)
[2021-04-28] MEDS ORDERED: D3400TAB PO (16:32)
[2021-04-28] MEDS ORDERED: PILL CUTTER 1 EACH XX PRN (16:45)
[2021-04-28] MEDS ORDERED: QUEtiapine FUMARATE 25 MG TAB PO ONE (17:00)
[2021-04-28] MEDS ORDERED: MOM 30ML SUSPENSION UDC PO PRN (17:40)
[2021-04-28] MEDS ORDERED: DOCUSATE SODIUM 100MG CAPSULE PO PRN (17:40)
[2021-04-28] MEDS ORDERED: ACETAMINOPHEN TAB 650MG DOSE (2X325MG) PO PRN (17:40)
[2021-04-28] MEDS ORDERED: FLEET ENEMA PR PRN (17:40)
[2021-04-28] MEDS ORDERED: BISACODYL 10 MG SUPP PR PRN (17:40)
[2021-04-28] MEDS ORDERED: HOME MED LIST COMPLETE! XX SCH (18:10)
[2021-04-28 18:30] VITALS: O2SAT 78
[2021-04-28 19:00] VITALS: O2SAT 96
[2021-04-28 19:30] VITALS: BP 147/67
[2021-04-28 20:00] VITALS: BP 120/59
[2021-04-28 20:15] VITALS: O2SAT 97
[2021-04-28] MEDS: LABETALOL 100MG TAB PO SCH (21:00)
[2021-04-28] MEDS ORDERED: REMDESIVIR 200 MG in NS 250 ML IV ONE (21:00)
[2021-04-28] MEDS: QUEtiapine FUMARATE 25 MG TAB PO SCH (21:50)
[2021-04-28] MEDS: CINACALCET 30 MG TAB (SENSIPAR) PO SCH (21:50)
[2021-04-28] MEDS: dexameTHASONE 4 MG/ML 1ML VIAL (J1100 PER 1MG) IV SCH (21:50)
[2021-04-28] MEDS ORDERED: SODIUM CHLORIDE 0.9% INJ 10 ML SYR IV ONE (23:00)
[2021-04-29] VITALS: O2SAT 94
[2021-04-29 04:00] VITALS: BP 121/78
[2021-04-29 04:01] VITALS: O2SAT 91
[2021-04-29 06:46] LABS: HEMATOCRIT 27.7 % (36.0-47.0); HEMOGLOBIN 8.8 g/dl (12.0-15.5); LYMPH # 0.2 10^3/uL (1.5-5.0); LYMPH % 8.8 % (24.0-44.0); MEAN CORPUSCULAR HEMOGLOBIN 32.8 pg (27.0-33.0); MEAN CORPUSCULAR HGB CONC 31.8 g/dl (32.0-36.5); MEAN CORPUSCULAR VOLUME 103.4 fl (80.0-96.0); MONO # 0.1 10^3/uL (0.0-0.8); MONO % 2.1 % (2.0-8.0); NEUTROPHILS # 2.1 10^3/uL (1.5-8.5); NEUTROPHILS % 87.4 % (36.0-66.0); PLATELET COUNT, AUTOMATED 192 10^3/uL (150-450); RED BLOOD COUNT 2.68 10^6/uL (4.00-5.40); WHITE BLOOD COUNT 2.4 10^3/uL (4.0-10.0)
[2021-04-29 07:06] LABS: CALCIUM LEVEL 9.6 MG/DL (8.8-10.2); CREATININE FOR GFR 2.08 MG/DL (0.55-1.30); GLOMERULAR FILTRATION RATE 24.1 (>32); MAGNESIUM LEVEL 2.7 MG/DL (1.8-2.4); POTASSIUM SERUM 5.1 MEQ/L (3.5-5.1)
[2021-04-29 08:00] VITALS: O2SAT 93
[2021-04-29] MEDS: ASCORBIC ACID 500 MG TAB PO SCH ×2 (09:00→10:03)
[2021-04-29] MEDS: CYANOCOBALAMIN 500 MCG TAB PO SCH ×2 (09:00→10:03)
[2021-04-29] MEDS: BARICITINIB 2MG TABLET (OLUMIANT) FOR EUA PO SCH ×2 (09:00→10:04)
[2021-04-29] MEDS: LABETALOL 100MG TAB PO SCH ×3 (09:00→21:00)
[2021-04-29] MEDS: CINACALCET 30 MG TAB (SENSIPAR) PO SCH ×3 (09:00→21:24)
[2021-04-29] MEDS: FAMOTIDINE 20 MG TAB PO SCH ×2 (09:00→10:03)
[2021-04-29] MEDS: ASPIRIN 81MG ENTERIC TABLET PO SCH ×2 (09:00→10:02)
[2021-04-29] MEDS: FERROUS SULFATE 325MG TAB PO SCH ×2 (09:00→10:03)
[2021-04-29] MEDS: FOLIC ACID 1 MG TAB PO SCH ×2 (09:00→10:04)
[2021-04-29] MEDS ORDERED: POTASSIUM CHLORIDE 10MEQ SR TABLET PO SCH (09:00)
[2021-04-29] MEDS: dexameTHASONE 4 MG/ML 1ML VIAL (J1100 PER 1MG) IV SCH (10:03)
[2021-04-29] MEDS: D5W/0.2% SODIUM CHLORIDE 1,000 ML IV SCH ×2 (10:05→23:00)
[2021-04-29 13:09] LABS: CALCIUM LEVEL 9.4 MG/DL (8.8-10.2); CREATININE FOR GFR 1.9 MG/DL (0.55-1.30); GLOMERULAR FILTRATION RATE 26.7 (>32); POTASSIUM SERUM 4.9 MEQ/L (3.5-5.1)
[2021-04-29 14:20] VITALS: BP 115/59
[2021-04-29 16:40] LABS: CALCIUM LEVEL 9.4 MG/DL (8.8-10.2); CREATININE FOR GFR 1.76 MG/DL (0.55-1.30); GLOMERULAR FILTRATION RATE 29.2 (>32); POTASSIUM SERUM 4.7 MEQ/L (3.5-5.1)
[2021-04-29 19:47] LABS: APPEARANCE, URINE HAZY (CLEAR); BACTERIA, URINE AUTO 1+ (NEGATIVE); BILIRUBIN, URINE AUTO NEGATIVE (NEGATIVE); BLOOD, URINE BLOOD NEGATIVE (NEGATIVE); COLOR, URINE YELLOW (YELLOW); GLUCOSE, URINE (UA) AUTO NEGATIVE (NEGATIVE); KETONE, URINE AUTO NEGATIVE (NEGATIVE); LEUKOCYTE ESTERASE, URINE AUTO 2+ (NEGATIVE); MUCUS, URINE SMALL (NEGATIVE); NITRITE, URINE AUTO POSITIVE (NEGATIVE); PROTEIN, URINE AUTO NEGATIVE (NEGATIVE); RBC, URINE AUTO 2 /HPF (0-3); SPECIFIC GRAVITY URINE AUTO 1.013 (1.002-1.035); SQUAMOUS EPITHELIAL CELL UR AU 0 /HPF (0-6); UROBILINOGEN, URINE AUTO 0.2 mg/dL (0.0-2.0); WBC, URINE AUTO 16 /HPF (0-3)
[2021-04-29 20:00] VITALS: BP 126/60; O2SAT 94
[2021-04-29 20:00] LABS: CREATININE,RANDOM URINE 57.3 MG/DL
[2021-04-29] MEDS: REMDESIVIR 100 MG in NS 250 ML IV SCH (21:24)
[2021-04-29] MEDS: QUEtiapine FUMARATE 25 MG TAB PO SCH (21:24)
[2021-04-29] MEDS: HEPARIN SOD (PORCINE) 5000UNITS/ML 1ML VIAL/SYRINGE SQ SCH (21:26)
[2021-04-29 21:44] LABS: CALCIUM LEVEL 9.3 MG/DL (8.8-10.2); CREATININE FOR GFR 1.7 MG/DL (0.55-1.30); GLOMERULAR FILTRATION RATE 30.4 (>32); POTASSIUM SERUM 4.3 MEQ/L (3.5-5.1)
[2021-04-29] MEDS: SODIUM CHLORIDE 0.9% INJ 10 ML SYR IV SCH (22:40)
[2021-04-30] VITALS (13 sets, daily range): BP systolic 105–145; BP diastolic 56–71; O2SAT 86–99
[2021-04-30 01:21] LABS: CALCIUM LEVEL 9.1 MG/DL (8.8-10.2); CREATININE FOR GFR 1.63 MG/DL (0.55-1.30); GLOMERULAR FILTRATION RATE 31.9 (>32); POTASSIUM SERUM 3.8 MEQ/L (3.5-5.1)
[2021-04-30 06:21] LABS: HEMATOCRIT 25.3 % (36.0-47.0); HEMOGLOBIN 8.1 g/dl (12.0-15.5); MEAN CORPUSCULAR HEMOGLOBIN 33.2 pg (27.0-33.0); MEAN CORPUSCULAR VOLUME 103.7 fl (80.0-96.0); PLATELET COUNT, AUTOMATED 209 10^3/uL (150-450); RED BLOOD COUNT 2.44 10^6/uL (4.00-5.40)
[2021-04-30 06:29] LABS: INR 1.08; PROTHROMBIN TIME 14.5 SECONDS (12.7-14.5)
[2021-04-30 06:30] LABS: PARTIAL THROMBOPLASTIN TIME 32.5 SECONDS (25.9-37.0)
[2021-04-30 06:56] LABS: ALBUMIN 2.1 GM/DL (3.2-5.2); BILIRUBIN,DIRECT 0.2 MG/DL (0.0-0.2); BILIRUBIN,TOTAL 0.3 MG/DL (0.2-1.0); CREATININE FOR GFR 1.61 MG/DL (0.55-1.30); GLOMERULAR FILTRATION RATE 32.4 (>32); POTASSIUM SERUM 3.6 MEQ/L (3.5-5.1); TOTAL PROTEIN 6.3 GM/DL (6.4-8.2)
[2021-04-30 07:16] LABS: CPK CREATINE PHOSPHOKINASE 20 U/L (26-192); TROPONIN I < 0.02 NG/ML (< 0.10)
[2021-04-30] MEDS: dexameTHASONE 4 MG/ML 1ML VIAL (J1100 PER 1MG) IV SCH (09:30)
[2021-04-30] MEDS: HEPARIN SOD (PORCINE) 5000UNITS/ML 1ML VIAL/SYRINGE SQ SCH ×2 (09:30→20:51)
[2021-04-30] MEDS: ASPIRIN 81MG ENTERIC TABLET PO SCH (09:30)
[2021-04-30] MEDS: CYANOCOBALAMIN 500 MCG TAB PO SCH (09:30)
[2021-04-30] MEDS: FERROUS SULFATE 325MG TAB PO SCH (09:34)
[2021-04-30] MEDS: FOLIC ACID 1 MG TAB PO SCH (09:34)
[2021-04-30] MEDS: BARICITINIB 2MG TABLET (OLUMIANT) FOR EUA PO SCH (09:34)
[2021-04-30] MEDS: LABETALOL 100MG TAB PO SCH ×2 (09:34→20:50)
[2021-04-30] MEDS: ASCORBIC ACID 500 MG TAB PO SCH (09:34)
[2021-04-30] MEDS: CINACALCET 30 MG TAB (SENSIPAR) PO SCH ×2 (09:35→20:50)
[2021-04-30] MEDS: FAMOTIDINE 20 MG TAB PO SCH (09:35)
[2021-04-30] MEDS: D5W 1,000 ML IV SCH (09:46)
[2021-04-30 10:12] LABS: CALCIUM LEVEL 9.4 MG/DL (8.8-10.2); CREATININE FOR GFR 1.6 MG/DL (0.55-1.30); GLOMERULAR FILTRATION RATE 32.6 (>32); POTASSIUM SERUM 3.8 MEQ/L (3.5-5.1)
[2021-04-30 14:05] LABS: CALCIUM LEVEL 9.1 MG/DL (8.8-10.2); CREATININE FOR GFR 1.42 MG/DL (0.55-1.30); GLOMERULAR FILTRATION RATE 37.4 (>32); POTASSIUM SERUM 3.9 MEQ/L (3.5-5.1)
[2021-04-30 17:56] LABS: CALCIUM LEVEL 9.2 MG/DL (8.8-10.2); CREATININE FOR GFR 1.45 MG/DL (0.55-1.30); GLOMERULAR FILTRATION RATE 36.5 (>32)
[2021-04-30] MEDS: QUEtiapine FUMARATE 25 MG TAB PO SCH (20:50)
[2021-04-30] MEDS: REMDESIVIR 100 MG in NS 250 ML IV SCH (20:50)
[2021-04-30 20:52] LABS: CALCIUM LEVEL 8.9 MG/DL (8.8-10.2); CREATININE FOR GFR 1.42 MG/DL (0.55-1.30); GLOMERULAR FILTRATION RATE 37.4 (>32)
[2021-04-30] MEDS: SODIUM CHLORIDE 0.9% INJ 10 ML SYR IV SCH (22:00)
[2021-05-01 00:15] VITALS: O2SAT 93
[2021-05-01] MEDS: D5W 1,000 ML IV SCH (01:02)
[2021-05-01 04:00] VITALS: O2SAT 96
[2021-05-01 06:00] VITALS: BP 112/53
[2021-05-01 07:28] LABS: HEMATOCRIT 23.5 % (36.0-47.0); HEMOGLOBIN 7.6 g/dl (12.0-15.5); MEAN CORPUSCULAR HEMOGLOBIN 33.2 pg (27.0-33.0); MEAN CORPUSCULAR HGB CONC 32.3 g/dl (32.0-36.5); MEAN CORPUSCULAR VOLUME 102.6 fl (80.0-96.0); PLATELET COUNT, AUTOMATED 191 10^3/uL (150-450); RED BLOOD COUNT 2.29 10^6/uL (4.00-5.40); WHITE BLOOD COUNT 2.8 10^3/uL (4.0-10.0)
[2021-05-01] MEDS: FOLIC ACID 1 MG TAB PO SCH (08:56)
[2021-05-01] MEDS: LABETALOL 100MG TAB PO SCH ×3 (08:56→21:00)
[2021-05-01] MEDS: HEPARIN SOD (PORCINE) 5000UNITS/ML 1ML VIAL/SYRINGE SQ SCH ×2 (08:56→21:34)
[2021-05-01] MEDS: CINACALCET 30 MG TAB (SENSIPAR) PO SCH ×2 (08:56→21:35)
[2021-05-01] MEDS: ASPIRIN 81MG ENTERIC TABLET PO SCH (08:56)
[2021-05-01] MEDS: BARICITINIB 2MG TABLET (OLUMIANT) FOR EUA PO SCH (08:57)
[2021-05-01] MEDS: ASCORBIC ACID 500 MG TAB PO SCH (08:57)
[2021-05-01] MEDS: FERROUS SULFATE 325MG TAB PO SCH (08:57)
[2021-05-01] MEDS: CYANOCOBALAMIN 500 MCG TAB PO SCH (08:58)
[2021-05-01] MEDS: FAMOTIDINE 20 MG TAB PO SCH (08:58)
[2021-05-01] MEDS: dexameTHASONE 4 MG/ML 1ML VIAL (J1100 PER 1MG) IV SCH (08:58)
[2021-05-01] MEDS: REMDESIVIR 100 MG in NS 250 ML IV SCH (21:34)
[2021-05-01] MEDS: QUEtiapine FUMARATE 25 MG TAB PO SCH (21:34)
[2021-05-01] MEDS: SODIUM CHLORIDE 0.9% INJ 10 ML SYR IV SCH (22:00)
[2021-05-02 00:36] VITALS: BP 106/58
[2021-05-02 04:14] LABS: VENOUS BASE EXCESS -2.7 (-2.0-2.0); VENOUS HCO3 21.3 MEQ/L (23.0-27.0); VENOUS O2 SATURATION 98.6 % (60.0-80.0); VENOUS PARTIAL PRESSURE CO2 33.4 mmHg (38.0-50.0); VENOUS PARTIAL PRESSURE O2 146.8 mmHg (30.0-50.0); VENOUS PH 7.423 UNITS (7.330-7.430); VENOUS STANDARD HCO3 22.2 MEQ/L; VENOUS TOTAL CO2 22.4 MEQ/L (24.0-28.0)
[2021-05-02 04:43] LABS: ALBUMIN 2.2 GM/DL (3.2-5.2); BILIRUBIN,TOTAL 0.3 MG/DL (0.2-1.0); CALCIUM LEVEL 9.6 MG/DL (8.8-10.2); CREATININE FOR GFR 1.26 MG/DL (0.55-1.30); MAGNESIUM LEVEL 1.9 MG/DL (1.8-2.4); POTASSIUM SERUM 3.7 MEQ/L (3.5-5.1); TOTAL PROTEIN 5.6 GM/DL (6.4-8.2)
[2021-05-02 06:22] LABS: HEMATOCRIT 23.9 % (36.0-47.0); HEMOGLOBIN 7.8 g/dl (12.0-15.5); MEAN CORPUSCULAR HEMOGLOBIN 32.9 pg (27.0-33.0); MEAN CORPUSCULAR HGB CONC 32.6 g/dl (32.0-36.5); MEAN CORPUSCULAR VOLUME 100.8 fl (80.0-96.0); PLATELET COUNT, AUTOMATED 200 10^3/uL (150-450); RED BLOOD COUNT 2.37 10^6/uL (4.00-5.40); WHITE BLOOD COUNT 3.1 10^3/uL (4.0-10.0)
[2021-05-02 06:31] LABS: INR 1.16; PROTHROMBIN TIME 15.2 SECONDS (12.7-14.5)
[2021-05-02 06:32] LABS: PARTIAL THROMBOPLASTIN TIME 37.4 SECONDS (25.9-37.0)
[2021-05-02 06:50] VITALS: BP 133/61
[2021-05-02 06:53] LABS: CPK CREATINE PHOSPHOKINASE 13 U/L (26-192); TROPONIN I < 0.02 NG/ML (< 0.10)
[2021-05-02 06:55] LABS: BILIRUBIN,DIRECT 0.2 MG/DL (0.0-0.2); BILIRUBIN,TOTAL 0.3 MG/DL (0.2-1.0); TOTAL PROTEIN 5.9 GM/DL (6.4-8.2)
[2021-05-02] MEDS: HEPARIN SOD (PORCINE) 5000UNITS/ML 1ML VIAL/SYRINGE SQ SCH ×2 (09:23→23:07)
[2021-05-02] MEDS: dexameTHASONE 4 MG/ML 1ML VIAL (J1100 PER 1MG) IV SCH (09:23)
[2021-05-02] MEDS: ASPIRIN 81MG ENTERIC TABLET PO SCH (09:23)
[2021-05-02] MEDS: ASCORBIC ACID 500 MG TAB PO SCH (09:23)
[2021-05-02] MEDS: FERROUS SULFATE 325MG TAB PO SCH (09:24)
[2021-05-02] MEDS: FOLIC ACID 1 MG TAB PO SCH (09:24)
[2021-05-02] MEDS: CINACALCET 30 MG TAB (SENSIPAR) PO SCH ×2 (09:24→23:05)
[2021-05-02] MEDS: FAMOTIDINE 20 MG TAB PO SCH (09:25)
[2021-05-02] MEDS: LABETALOL 100MG TAB PO SCH ×2 (09:25→20:00)
[2021-05-02] MEDS: BARICITINIB 2MG TABLET (OLUMIANT) FOR EUA PO SCH (09:25)
[2021-05-02] MEDS: CYANOCOBALAMIN 500 MCG TAB PO SCH (09:25)
[2021-05-02 14:00] VITALS: BP 114/56
[2021-05-02 20:00] VITALS: BP 118/58
[2021-05-02] MEDS: QUEtiapine FUMARATE 25 MG TAB PO SCH (23:05)
[2021-05-02] MEDS: REMDESIVIR 100 MG in NS 250 ML IV SCH (23:08)
[2021-05-03] MEDS: SODIUM CHLORIDE 0.9% INJ 10 ML SYR IV SCH (00:59)
[2021-05-03 04:00] VITALS: BP 120/60
[2021-05-03 08:41] LABS: HEMATOCRIT 26.3 % (36.0-47.0); HEMOGLOBIN 8.4 g/dl (12.0-15.5); MEAN CORPUSCULAR HEMOGLOBIN 32.8 pg (27.0-33.0); MEAN CORPUSCULAR HGB CONC 31.9 g/dl (32.0-36.5); MEAN CORPUSCULAR VOLUME 102.7 fl (80.0-96.0); PLATELET COUNT, AUTOMATED 223 10^3/uL (150-450); RED BLOOD COUNT 2.56 10^6/uL (4.00-5.40)
[2021-05-03 09:06] LABS: BILIRUBIN,TOTAL 0.3 MG/DL (0.2-1.0); CALCIUM LEVEL 10.1 MG/DL (8.8-10.2); CREATININE FOR GFR 1.27 MG/DL (0.55-1.30); GLOMERULAR FILTRATION RATE 42.6 (>32); POTASSIUM SERUM 3.4 MEQ/L (3.5-5.1)
[2021-05-03] MEDS: dexameTHASONE 4 MG/ML 1ML VIAL (J1100 PER 1MG) IV SCH (11:00)
[2021-05-03] MEDS: HEPARIN SOD (PORCINE) 5000UNITS/ML 1ML VIAL/SYRINGE SQ SCH (11:00)
[2021-05-03] MEDS: LABETALOL 100MG TAB PO SCH ×2 (11:01→21:13)
[2021-05-03] MEDS: FOLIC ACID 1 MG TAB PO SCH (11:01)
[2021-05-03] MEDS: ASCORBIC ACID 500 MG TAB PO SCH (11:01)
[2021-05-03] MEDS: ASPIRIN 81MG ENTERIC TABLET PO SCH (11:02)
[2021-05-03] MEDS: FERROUS SULFATE 325MG TAB PO SCH (11:02)
[2021-05-03] MEDS: CINACALCET 30 MG TAB (SENSIPAR) PO SCH ×2 (11:02→21:13)
[2021-05-03] MEDS: BARICITINIB 2MG TABLET (OLUMIANT) FOR EUA PO SCH (11:03)
[2021-05-03] MEDS: CYANOCOBALAMIN 500 MCG TAB PO SCH (11:03)
[2021-05-03] MEDS: FAMOTIDINE 20 MG TAB PO SCH (11:04)
[2021-05-03 14:00] VITALS: BP 111/60
[2021-05-03] MEDS: ENOXAPARIN 40MG/0.4ML SYRINGE (J1650 PER 10MG) SC SCH (17:52)
[2021-05-03] MEDS: D5W 1,000 ML IV SCH (17:53)
[2021-05-03] MEDS ORDERED: POTASSIUM CHLORIDE 10% LIQ 20 MEQ/15 ML UDC PO ONE (18:00)
[2021-05-03 20:00] VITALS: BP 133/63
[2021-05-03 21:10] VITALS: BP 131/62
[2021-05-03] MEDS: QUEtiapine FUMARATE 25 MG TAB PO SCH (21:13)
[2021-05-04 04:00] VITALS: BP 139/63
[2021-05-04] MEDS: D5W 1,000 ML IV SCH ×2 (05:02→16:23)
[2021-05-04 07:38] LABS: HEMATOCRIT 24.7 % (36.0-47.0); MEAN CORPUSCULAR HEMOGLOBIN 32.7 pg (27.0-33.0); MEAN CORPUSCULAR HGB CONC 32.4 g/dl (32.0-36.5); MEAN CORPUSCULAR VOLUME 100.8 fl (80.0-96.0); PLATELET COUNT, AUTOMATED 228 10^3/uL (150-450); RED BLOOD COUNT 2.45 10^6/uL (4.00-5.40); WHITE BLOOD COUNT 3.5 10^3/uL (4.0-10.0)
[2021-05-04 07:50] LABS: INR 1.19; PROTHROMBIN TIME 15.5 SECONDS (12.7-14.5)
[2021-05-04 07:51] LABS: PARTIAL THROMBOPLASTIN TIME 54.7 SECONDS (25.9-37.0)
[2021-05-04 08:00] LABS: ALBUMIN 2.1 GM/DL (3.2-5.2); BILIRUBIN,TOTAL 0.4 MG/DL (0.2-1.0); CALCIUM LEVEL 9.7 MG/DL (8.8-10.2); CREATININE FOR GFR 1.3 MG/DL (0.55-1.30); GLOMERULAR FILTRATION RATE 41.4 (>32); POTASSIUM SERUM 3.9 MEQ/L (3.5-5.1); TOTAL PROTEIN 5.3 GM/DL (6.4-8.2)
[2021-05-04 08:02] LABS: ALBUMIN 2.1 GM/DL (3.2-5.2); BILIRUBIN,DIRECT 0.1 MG/DL (0.0-0.2); BILIRUBIN,TOTAL 0.3 MG/DL (0.2-1.0); TOTAL PROTEIN 5.6 GM/DL (6.4-8.2)
[2021-05-04 08:10] LABS: CPK CREATINE PHOSPHOKINASE 11 U/L (26-192); TROPONIN I < 0.02 NG/ML (< 0.10)
[2021-05-04 09:00] VITALS: O2SAT 94
[2021-05-04] MEDS: LABETALOL 100MG TAB PO SCH ×2 (09:00→20:15)
[2021-05-04] MEDS: BARICITINIB 2MG TABLET (OLUMIANT) FOR EUA PO SCH (09:36)
[2021-05-04] MEDS: ASCORBIC ACID 500 MG TAB PO SCH (09:36)
[2021-05-04] MEDS: CINACALCET 30 MG TAB (SENSIPAR) PO SCH ×2 (09:36→20:15)
[2021-05-04] MEDS: FERROUS SULFATE 325MG TAB PO SCH (09:36)
[2021-05-04] MEDS: FAMOTIDINE 20 MG TAB PO SCH (09:36)
[2021-05-04] MEDS: FOLIC ACID 1 MG TAB PO SCH (09:37)
[2021-05-04] MEDS: ASPIRIN 81MG ENTERIC TABLET PO SCH (09:37)
[2021-05-04] MEDS: CYANOCOBALAMIN 500 MCG TAB PO SCH (09:37)
[2021-05-04] MEDS: dexameTHASONE 4 MG/ML 1ML VIAL (J1100 PER 1MG) IV SCH (09:38)
[2021-05-04 14:00] VITALS: BP 137/66
[2021-05-04] MEDS: ENOXAPARIN 40MG/0.4ML SYRINGE (J1650 PER 10MG) SC SCH (17:10)
[2021-05-04 20:00] VITALS: BP 127/63
[2021-05-04] MEDS: QUEtiapine FUMARATE 25 MG TAB PO SCH (20:15)
[2021-05-04 21:00] VITALS: O2SAT 93
[2021-05-05 04:00] VITALS: BP 116/58
[2021-05-05 06:08] LABS: HEMATOCRIT 23.4 % (36.0-47.0); HEMOGLOBIN 7.8 g/dl (12.0-15.5); MEAN CORPUSCULAR HEMOGLOBIN 32.8 pg (27.0-33.0); MEAN CORPUSCULAR HGB CONC 33.3 g/dl (32.0-36.5); MEAN CORPUSCULAR VOLUME 98.3 fl (80.0-96.0); PLATELET COUNT, AUTOMATED 224 10^3/uL (150-450); RED BLOOD COUNT 2.38 10^6/uL (4.00-5.40); WHITE BLOOD COUNT 4.3 10^3/uL (4.0-10.0)
[2021-05-05] MEDS: D5W 1,000 ML IV SCH (06:16)
[2021-05-05 06:48] LABS: ALBUMIN 1.9 GM/DL (3.2-5.2); BILIRUBIN,TOTAL 0.4 MG/DL (0.2-1.0); CALCIUM LEVEL 9.2 MG/DL (8.8-10.2); CREATININE FOR GFR 1.19 MG/DL (0.55-1.30); GLOMERULAR FILTRATION RATE 45.9 (>32); POTASSIUM SERUM 3.4 MEQ/L (3.5-5.1); TOTAL PROTEIN 5.6 GM/DL (6.4-8.2)
[2021-05-05 08:00] VITALS: O2SAT 94
[2021-05-05 08:45] VITALS: BP 121/64
[2021-05-05] MEDS: CINACALCET 30 MG TAB (SENSIPAR) PO SCH ×2 (08:48→20:15)
[2021-05-05] MEDS: BARICITINIB 2MG TABLET (OLUMIANT) FOR EUA PO SCH (08:48)
[2021-05-05] MEDS: FOLIC ACID 1 MG TAB PO SCH (08:48)
[2021-05-05] MEDS: ASCORBIC ACID 500 MG TAB PO SCH (08:49)
[2021-05-05] MEDS: CYANOCOBALAMIN 500 MCG TAB PO SCH (08:49)
[2021-05-05] MEDS: FERROUS SULFATE 325MG TAB PO SCH (08:49)
[2021-05-05] MEDS: ASPIRIN 81MG ENTERIC TABLET PO SCH (08:49)
[2021-05-05] MEDS: LABETALOL 100MG TAB PO SCH ×2 (08:49→20:15)
[2021-05-05] MEDS: dexameTHASONE 4 MG/ML 1ML VIAL (J1100 PER 1MG) IV SCH (08:50)
[2021-05-05] MEDS: FAMOTIDINE 20 MG TAB PO SCH (08:50)
[2021-05-05] MEDS ORDERED: POTASSIUM CHLORIDE 10MEQ SR TABLET PO ONE (09:00)
[2021-05-05 14:00] VITALS: BP 108/56
[2021-05-05] MEDS: ENOXAPARIN 40MG/0.4ML SYRINGE (J1650 PER 10MG) SC SCH (17:58)
[2021-05-05 20:00] VITALS: BP 125/60
[2021-05-05 20:13] VITALS: BP 124/62
[2021-05-05] MEDS: QUEtiapine FUMARATE 25 MG TAB PO SCH (20:15)
[2021-05-05] MEDS ORDERED: SENNA 8.6 MG TAB (SENOKOT) PO SCH (21:00)
[2021-05-05] MEDS: DOCUSATE SODIUM 100MG CAPSULE PO SCH (21:31)
[2021-05-06 04:00] VITALS: BP 114/56
[2021-05-06] MEDS ORDERED: POTASSIUM CHLORIDE 10MEQ SR TABLET PO ONE (08:00)
[2021-05-06 08:08] LABS: HEMATOCRIT 24.6 % (36.0-47.0); HEMOGLOBIN 8.3 g/dl (12.0-15.5); MEAN CORPUSCULAR HEMOGLOBIN 33.1 pg (27.0-33.0); MEAN CORPUSCULAR HGB CONC 33.7 g/dl (32.0-36.5); PLATELET COUNT, AUTOMATED 250 10^3/uL (150-450); RED BLOOD COUNT 2.51 10^6/uL (4.00-5.40); WHITE BLOOD COUNT 4.1 10^3/uL (4.0-10.0)
[2021-05-06 08:34] LABS: ALBUMIN 1.9 GM/DL (3.2-5.2); BILIRUBIN,TOTAL 0.3 MG/DL (0.2-1.0); CALCIUM LEVEL 9.3 MG/DL (8.8-10.2); CREATININE FOR GFR 1.37 MG/DL (0.55-1.30); POTASSIUM SERUM 3.9 MEQ/L (3.5-5.1); TOTAL PROTEIN 5.6 GM/DL (6.4-8.2)
[2021-05-06] MEDS: dexameTHASONE 4 MG/ML 1ML VIAL (J1100 PER 1MG) IV SCH (09:01)
[2021-05-06] MEDS: CINACALCET 30 MG TAB (SENSIPAR) PO SCH (09:02)
[2021-05-06] MEDS: BARICITINIB 2MG TABLET (OLUMIANT) FOR EUA PO SCH (09:03)
[2021-05-06] MEDS: FOLIC ACID 1 MG TAB PO SCH (09:03)
[2021-05-06] MEDS: LABETALOL 100MG TAB PO SCH (09:04)
[2021-05-06] MEDS: FAMOTIDINE 20 MG TAB PO SCH (09:05)
[2021-05-06] MEDS: DOCUSATE SODIUM 100MG CAPSULE PO SCH (09:05)
[2021-05-06] MEDS: ASPIRIN 81MG ENTERIC TABLET PO SCH (09:05)
[2021-05-06] MEDS: CYANOCOBALAMIN 500 MCG TAB PO SCH (09:05)
[2021-05-06] MEDS: ASCORBIC ACID 500 MG TAB PO SCH (09:05)
[2021-05-06 09:06] VITALS: BP 114/56
[2021-05-06] MEDS: FERROUS SULFATE 325MG TAB PO SCH (09:07)
[2021-05-06] MEDS ORDERED: PRED10TA2 PO (11:35)
[2021-05-06 12:00] VITALS: BP 90/57
[2021-05-06 17:11] LABS: MYCOPLASMA PNEUMONIAE IgG 396 U/mL (0-99); MYCOPLASMA PNEUMONIAE IgM <770 U/mL (0-769)
== END 2021-05-06 12:00 | DRG 177 ==
LOC: EDBD 12:00 → M ED 12:00 → M ED INP 14:55 → ENRESERV 16:04 → M 4MAIN 19:01
PROVIDERS: ADMIT Internal Medicine; ATTEND Internal Medicine
PROC: XW033E5 Introduction of Remdesivir Anti-infective into Peripheral Vein, Percutaneous Approach, New Technology Group 5 (ICD-10-PCS; principal; 2021-04-28)
PROC: 3E0333Z Introduction of Anti-inflammatory into Peripheral Vein, Percutaneous Approach (ICD-10-PCS; 2021-04-28)
DX: U07.1 COVID-19 (principal); J96.01 Acute respiratory failure with hypoxia; E87.0 Hyperosmolality and hypernatremia; F03.90 Unspecified dementia, unspecified severity, without behavioral disturbance, psychotic disturbance, mood disturbance, and anxiety; E21.0 Primary hyperparathyroidism; I12.9 Hypertensive chronic kidney disease with stage 1 through stage 4 chronic kidney disease, or unspecified chronic kidney disease; Z90.49 Acquired absence of other specified parts of digestive tract; Z90.79 Acquired absence of other genital organ(s); Z98.1 Arthrodesis status; Z66 Do not resuscitate; E87.5 Hyperkalemia; Z79.899 Other long term (current) drug therapy; N18.30 Chronic kidney disease, stage 3 unspecified; D63.1 Anemia in chronic kidney disease

== ENCOUNTER → 2021-04-28 | Outpatient (REF) | payer MEDICARE, MEDICAID ==
[2021-04-24 10:40] LABS: HEMATOCRIT 28.5 % (36.0-47.0); HEMOGLOBIN 9.4 g/dl (12.0-15.5); MEAN CORPUSCULAR HEMOGLOBIN 33.6 pg (27.0-33.0); MEAN CORPUSCULAR VOLUME 101.8 fl (80.0-96.0); PLATELET COUNT, AUTOMATED 114 10^3/uL (150-450); WHITE BLOOD COUNT 2.3 10^3/uL (4.0-10.0)
[2021-04-24 11:21] LABS: ALBUMIN 2.9 GM/DL (3.2-5.2); BILIRUBIN,TOTAL 0.5 MG/DL (0.2-1.0); CALCIUM LEVEL 8.6 MG/DL (8.8-10.2); CREATININE FOR GFR 2.05 MG/DL (0.55-1.30); GLOMERULAR FILTRATION RATE 24.5 (>32); MAGNESIUM LEVEL 1.9 MG/DL (1.8-2.4); POTASSIUM SERUM 4.2 MEQ/L (3.5-5.1); TOTAL PROTEIN 6.7 GM/DL (6.4-8.2)
== END ==
LOC: SKLAB2 07:00
PROVIDERS: ATTEND Internal Medicine
DX: U07.1 COVID-19 (principal); E21.3 Hyperparathyroidism, unspecified

== ENCOUNTER → 2021-04-28 | Outpatient (REF) | payer MEDICARE, MEDICAID ==
[2021-04-28 09:36] LABS: HEMATOCRIT 27.8 % (36.0-47.0); MEAN CORPUSCULAR HEMOGLOBIN 33.2 pg (27.0-33.0); MEAN CORPUSCULAR HGB CONC 32.4 g/dl (32.0-36.5); MEAN CORPUSCULAR VOLUME 102.6 fl (80.0-96.0); PLATELET COUNT, AUTOMATED 185 10^3/uL (150-450); RED BLOOD COUNT 2.71 10^6/uL (4.00-5.40)
[2021-04-28 10:12] LABS: ALBUMIN 2.5 GM/DL (3.2-5.2); BILIRUBIN,TOTAL 0.5 MG/DL (0.2-1.0); CALCIUM LEVEL 9.6 MG/DL (8.8-10.2); CREATININE FOR GFR 2.06 MG/DL (0.55-1.30); GLOMERULAR FILTRATION RATE 24.4 (>32); MAGNESIUM LEVEL 2.6 MG/DL (1.8-2.4); POTASSIUM SERUM 4.4 MEQ/L (3.5-5.1); TOTAL PROTEIN 7.3 GM/DL (6.4-8.2)
== END ==
LOC: SKLAB3 07:00
PROVIDERS: ATTEND Internal Medicine
DX: U07.1 COVID-19 (principal); E21.3 Hyperparathyroidism, unspecified

== ENCOUNTER → 2021-05-07 | Outpatient (REF) | payer MEDICARE, MEDICAID ==
[~2021-05-07] MED LIST changes: +ASCO500T PO; +CINA60TA3 PO; +D3400TAB PO; +POTA10CA32 PO; +PRED10TA2 PO
[2021-05-07 15:13] LABS: HEMATOCRIT 24.1 % (36.0-47.0); HEMOGLOBIN 8.2 g/dl (12.0-15.5); MEAN CORPUSCULAR HEMOGLOBIN 33.3 pg (27.0-33.0); PLATELET COUNT, AUTOMATED 241 10^3/uL (150-450); RED BLOOD COUNT 2.46 10^6/uL (4.00-5.40); WHITE BLOOD COUNT 4.3 10^3/uL (4.0-10.0)
[2021-05-07 15:38] LABS: CALCIUM LEVEL 9.4 MG/DL (8.8-10.2); CREATININE FOR GFR 1.43 MG/DL (0.55-1.30); GLOMERULAR FILTRATION RATE 37.1 (>32); POTASSIUM SERUM 3.8 MEQ/L (3.5-5.1)
== END ==
LOC: SKLAB3 14:14
PROVIDERS: ATTEND Internal Medicine
DX: R53.83 Other fatigue (principal); R40.4 Transient alteration of awareness

== ENCOUNTER → 2021-05-12 | Outpatient (REF) | payer MEDICARE, MEDICAID ==
[2021-05-12 13:16] LABS: BASO % 0.6 % (0.0-1.0); EOS % 0.6 % (0.0-3.0); HEMATOCRIT 22.4 % (36.0-47.0); HEMOGLOBIN 7.6 g/dl (12.0-15.5); LYMPH # 0.3 10^3/uL (1.5-5.0); LYMPH % 8.3 % (24.0-44.0); MEAN CORPUSCULAR HEMOGLOBIN 33.6 pg (27.0-33.0); MEAN CORPUSCULAR HGB CONC 33.9 g/dl (32.0-36.5); MEAN CORPUSCULAR VOLUME 99.1 fl (80.0-96.0); MONO # 0.2 10^3/uL (0.0-0.8); MONO % 4.1 % (2.0-8.0); NEUTROPHILS # 3.1 10^3/uL (1.5-8.5); NEUTROPHILS % 85.6 % (36.0-66.0); PLATELET COUNT, AUTOMATED 200 10^3/uL (150-450); RED BLOOD COUNT 2.26 10^6/uL (4.00-5.40); WHITE BLOOD COUNT 3.6 10^3/uL (4.0-10.0)
[2021-05-12 13:50] LABS: ALBUMIN 2.1 GM/DL (3.2-5.2); BILIRUBIN,TOTAL 0.4 MG/DL (0.2-1.0); CALCIUM LEVEL 8.9 MG/DL (8.8-10.2); CREATININE FOR GFR 1.32 MG/DL (0.55-1.30); GLOMERULAR FILTRATION RATE 40.7 (>32); POTASSIUM SERUM 3.2 MEQ/L (3.5-5.1); TOTAL PROTEIN 5.3 GM/DL (6.4-8.2)
== END ==
LOC: SKLAB3 07:00
PROVIDERS: ATTEND Internal Medicine
DX: E83.52 Hypercalcemia (principal)

== ENCOUNTER → 2021-05-14 | Outpatient (REF) | payer MEDICARE, MEDICAID ==
[2021-05-14 09:29] LABS: CALCIUM LEVEL 9.9 MG/DL (8.8-10.2); CREATININE FOR GFR 1.3 MG/DL (0.55-1.30); GLOMERULAR FILTRATION RATE 41.4 (>32); POTASSIUM SERUM 4.2 MEQ/L (3.5-5.1)
== END ==
LOC: SKLAB3 07:00
PROVIDERS: ATTEND Internal Medicine
DX: R63.8 Other symptoms and signs concerning food and fluid intake (principal)

== ENCOUNTER 2021-05-19 15:12 | Inpatient (IN) | payer MEDICARE, MEDICAID ==
[~2021-05-19] VITALS: Ht 152.4 cm; Wt 43.5 kg
[2021-05-19] MEDS ORDERED: NS 500 ML IV ONE (15:40)
[2021-05-19] MEDS ORDERED: ACETAMINOPHEN TAB 650MG DOSE (2X325MG) PO PRN (16:25)
[2021-05-19] MEDS ORDERED: HOME MED LIST COMPLETE! XX SCH (16:35)
[2021-05-19] MEDS ORDERED: DOCUSATE SODIUM 100MG CAPSULE PO PRN (16:45)
[2021-05-19] MEDS ORDERED: MOM 30ML SUSPENSION UDC PO PRN (16:45)
[2021-05-19] MEDS ORDERED: BISACODYL 10 MG SUPP PR PRN (16:45)
[2021-05-19 17:17] LABS: MAGNESIUM LEVEL 3.1 MG/DL (1.8-2.4)
[2021-05-19 17:37] LABS: BLOOD UREA NITROGEN 36 MG/DL (7-18); CARBON DIOXIDE LEVEL 29 MEQ/L (21-32); CHLORIDE LEVEL 107 MEQ/L (98-107); CREATININE FOR GFR 2.75 MG/DL (0.55-1.30); GLOMERULAR FILTRATION RATE 17.5 (>32); GLUCOSE, FASTING 125 MG/DL (70-100); POTASSIUM SERUM 4.6 MEQ/L (3.5-5.1); SODIUM LEVEL 142 MEQ/L (136-145)
[2021-05-19 18:01] LABS: CALCIUM LEVEL 15.8 MG/DL (8.8-10.2)
[2021-05-19] MEDS: FUROSEMIDE 20MG/2ML VIAL (J1940) IV SCH (18:07)
[2021-05-19] MEDS: NS 1,000 ML IV SCH (18:07)
[2021-05-19 18:11] LABS: PTH INTACT 951.9 PG/ML (18.5-88.0)
[2021-05-19 18:12] LABS: IRON (FE) 51 UG/DL (50-170); PERCENT SATURATION 26.2 % (13.2-45.0); TOTAL IRON BINDING CAPACITY 195 UG/DL (250-450)
[2021-05-19 18:31] LABS: FOLATE > 24.0 NG/ML
[2021-05-19 18:42] LABS: VITAMIN B12 LEVEL 1797 PG/ML
[2021-05-19] MEDS ORDERED: CINACALCET 30 MG TAB (SENSIPAR) PO SCH (21:00)
[2021-05-19] MEDS ORDERED: CALCITONIN SALMON (MIACALCIN) 400INTERNATIONAL UNITS/2ML INJ (J0630) SC SCH (21:00)
[2021-05-20] MEDS: LABETALOL 100MG TAB PO SCH ×4 (01:07→20:37)
[2021-05-20] MEDS: HEPARIN SOD (PORCINE) 5000UNITS/ML 1ML VIAL/SYRINGE SC SCH ×3 (01:08→20:35)
[2021-05-20] MEDS: FUROSEMIDE 20MG/2ML VIAL (J1940) IV SCH ×3 (01:18→12:00)
[2021-05-20] MEDS: NS 1,000 ML IV SCH ×3 (03:27→12:35)
[2021-05-20] MEDS: CINACALCET 30 MG TAB (SENSIPAR) PO SCH ×3 (08:00→18:44)
[2021-05-20 08:10] LABS: HEMATOCRIT 26.3 % (36.0-47.0); HEMOGLOBIN 8.9 g/dl (12.0-15.5); MEAN CORPUSCULAR HEMOGLOBIN 33.6 pg (27.0-33.0); MEAN CORPUSCULAR HGB CONC 33.8 g/dl (32.0-36.5); MEAN CORPUSCULAR VOLUME 99.2 fl (80.0-96.0); PLATELET COUNT, AUTOMATED 128 10^3/uL (150-450); RED BLOOD COUNT 2.65 10^6/uL (4.00-5.40); WHITE BLOOD COUNT 3.5 10^3/uL (4.0-10.0)
[2021-05-20 08:46] LABS: ALBUMIN 2.7 GM/DL (3.2-5.2); BILIRUBIN,TOTAL 0.4 MG/DL (0.2-1.0); CALCIUM LEVEL 14.7 MG/DL (8.8-10.2); CREATININE FOR GFR 2.48 MG/DL (0.55-1.30); GLOMERULAR FILTRATION RATE 19.7 (>32); POTASSIUM SERUM 3.5 MEQ/L (3.5-5.1); TOTAL PROTEIN 6.5 GM/DL (6.4-8.2)
[2021-05-20] MEDS: POTASSIUM CHLORIDE 10MEQ SR TABLET PO SCH ×2 (09:00→09:38)
[2021-05-20] MEDS: CALCITONIN SALMON (MIACALCIN) 400INTERNATIONAL UNITS/2ML INJ (J0630) SC SCH ×2 (09:00→20:35)
[2021-05-20] MEDS: ASCORBIC ACID 500 MG TAB PO SCH ×2 (09:00→09:38)
[2021-05-20] MEDS: FAMOTIDINE 20 MG TAB PO SCH ×2 (09:00→09:39)
[2021-05-20] MEDS: FERROUS SULFATE 325MG TAB PO SCH ×2 (09:00→09:39)
[2021-05-20] MEDS: FOLIC ACID 1 MG TAB PO SCH ×2 (09:00→09:39)
[2021-05-20] MEDS: CYANOCOBALAMIN 500 MCG TAB PO SCH ×2 (09:00→09:39)
[2021-05-20 13:08] VITALS: BP 153/74
[2021-05-20] MEDS: POTASSIUM CHLORIDE INJ 10 MEQ in NS 0.45% 1,000 ML IV SCH (20:34)
[2021-05-20 22:00] VITALS: BP 141/77
[2021-05-21 06:00] VITALS: BP 134/63
[2021-05-21] MEDS: POTASSIUM CHLORIDE INJ 10 MEQ in NS 0.45% 1,000 ML IV SCH ×2 (06:39→16:20)
[2021-05-21] MEDS: CINACALCET 30 MG TAB (SENSIPAR) PO SCH ×2 (08:00→17:01)
[2021-05-21 08:38] LABS: HEMATOCRIT 27.5 % (36.0-47.0); HEMOGLOBIN 9.4 g/dl (12.0-15.5); LYMPH # 0.3 10^3/uL (1.5-5.0); LYMPH % 5.3 % (24.0-44.0); MEAN CORPUSCULAR HEMOGLOBIN 33.8 pg (27.0-33.0); MEAN CORPUSCULAR HGB CONC 34.2 g/dl (32.0-36.5); MEAN CORPUSCULAR VOLUME 98.9 fl (80.0-96.0); MONO # 0.1 10^3/uL (0.0-0.8); MONO % 2.9 % (2.0-8.0); NEUTROPHILS # 4.3 10^3/uL (1.5-8.5); NEUTROPHILS % 91.4 % (36.0-66.0); PLATELET COUNT, AUTOMATED 144 10^3/uL (150-450); RED BLOOD COUNT 2.78 10^6/uL (4.00-5.40); WHITE BLOOD COUNT 4.8 10^3/uL (4.0-10.0)
[2021-05-21 09:01] LABS: ALBUMIN 2.7 GM/DL (3.2-5.2); BILIRUBIN,TOTAL 0.6 MG/DL (0.2-1.0); CALCIUM LEVEL 12.8 MG/DL (8.8-10.2); CREATININE FOR GFR 2.41 MG/DL (0.55-1.30); GLOMERULAR FILTRATION RATE 20.3 (>32); MAGNESIUM LEVEL 2.9 MG/DL (1.8-2.4); POTASSIUM SERUM 3.6 MEQ/L (3.5-5.1); TOTAL PROTEIN 6.5 GM/DL (6.4-8.2)
[2021-05-21] MEDS: FERROUS SULFATE 325MG TAB PO SCH (09:58)
[2021-05-21] MEDS: FAMOTIDINE 20 MG TAB PO SCH (09:58)
[2021-05-21] MEDS: ASCORBIC ACID 500 MG TAB PO SCH (09:58)
[2021-05-21] MEDS: HEPARIN SOD (PORCINE) 5000UNITS/ML 1ML VIAL/SYRINGE SC SCH ×2 (09:58→22:35)
[2021-05-21] MEDS: LABETALOL 100MG TAB PO SCH ×2 (09:58→22:36)
[2021-05-21] MEDS: FOLIC ACID 1 MG TAB PO SCH (09:59)
[2021-05-21] MEDS: CYANOCOBALAMIN 500 MCG TAB PO SCH (09:59)
[2021-05-21] MEDS: CALCITONIN SALMON (MIACALCIN) 400INTERNATIONAL UNITS/2ML INJ (J0630) SC SCH ×2 (09:59→21:00)
[2021-05-21 14:00] VITALS: BP 112/73
[2021-05-21 22:00] VITALS: BP 137/61
[2021-05-21 22:36] VITALS: BP 137/61
[2021-05-22] MEDS: POTASSIUM CHLORIDE INJ 10 MEQ in NS 0.45% 1,000 ML IV SCH (02:43)
[2021-05-22 06:00] VITALS: BP 112/70
[2021-05-22] MEDS: CINACALCET 30 MG TAB (SENSIPAR) PO SCH (08:15)
[2021-05-22 08:18] LABS: EOS % 0.4 % (0.0-3.0); HEMATOCRIT 21.7 % (36.0-47.0); LYMPH # 0.3 10^3/uL (1.5-5.0); LYMPH % 10.4 % (24.0-44.0); MEAN CORPUSCULAR HEMOGLOBIN 33.2 pg (27.0-33.0); MEAN CORPUSCULAR HGB CONC 33.2 g/dl (32.0-36.5); MONO # 0.1 10^3/uL (0.0-0.8); MONO % 5.4 % (2.0-8.0); NEUTROPHILS # 2.2 10^3/uL (1.5-8.5); PLATELET COUNT, AUTOMATED 111 10^3/uL (150-450); RED BLOOD COUNT 2.17 10^6/uL (4.00-5.40); WHITE BLOOD COUNT 2.6 10^3/uL (4.0-10.0)
[2021-05-22 08:30] LABS: HEMOGLOBIN 7.2 g/dl (12.0-15.5)
[2021-05-22 08:33] LABS: ALBUMIN 2.3 GM/DL (3.2-5.2); BILIRUBIN,TOTAL 0.4 MG/DL (0.2-1.0); CALCIUM LEVEL 11.6 MG/DL (8.8-10.2); CREATININE FOR GFR 2.38 MG/DL (0.55-1.30); GLOMERULAR FILTRATION RATE 20.6 (>32); MAGNESIUM LEVEL 2.6 MG/DL (1.8-2.4); POTASSIUM SERUM 3.5 MEQ/L (3.5-5.1); TOTAL PROTEIN 5.5 GM/DL (6.4-8.2)
[2021-05-22] MEDS ORDERED: NS 1,000 ML IV SCH (08:50)
[2021-05-22] MEDS: HEPARIN SOD (PORCINE) 5000UNITS/ML 1ML VIAL/SYRINGE SC SCH (08:52)
[2021-05-22] MEDS: FAMOTIDINE 20 MG TAB PO SCH (09:00)
[2021-05-22] MEDS: CYANOCOBALAMIN 500 MCG TAB PO SCH (09:00)
[2021-05-22] MEDS: FOLIC ACID 1 MG TAB PO SCH (09:00)
[2021-05-22] MEDS: FERROUS SULFATE 325MG TAB PO SCH (09:00)
[2021-05-22] MEDS: ASCORBIC ACID 500 MG TAB PO SCH (09:00)
[2021-05-22] MEDS: LABETALOL 100MG TAB PO SCH (09:00)
[2021-05-22] MEDS ORDERED: DEXTROSE 50% 50 ML SYRINGE IV STA (09:07)
[2021-05-22] MEDS ORDERED: ATROPINE SULFATE 1% OP SOLN 2 ML BTL SL PRN (10:55)
[2021-05-22] MEDS ORDERED: ONDANSETRON 4MG/2ML VIAL IV PRN (10:55)
[2021-05-22] MEDS ORDERED: LORazepam 1 MG TAB PO PRN (10:55)
[2021-05-22] MEDS ORDERED: MORPHINE 2 MG/ML 1ML VIAL (J2270) IV PRN (10:55)
[2021-05-22] MEDS ORDERED: MORPHINE 10MG/0.5ML ORAL CONCENTRATE SOLUTION U/D SL PRN (10:55)
[2021-05-22] MEDS ORDERED: FLEET ENEMA PR PRN (10:55)
[2021-05-22] MEDS ORDERED: ONDANSETRON 4 MG ORAL DISINTEGRATING TAB PO PRN (10:55)
[2021-05-22] MEDS ORDERED: LORazepam 2 MG/ML VIAL IV PRN (10:55)
[2021-05-22] MEDS ORDERED: SCOPOLAMINE 1MG TRANSDERMAL PATCH TOP PRN (10:55)
[2021-05-22] MEDS ORDERED: HYOSCYAMINE SULFATE 0.125 MG SUBL TABLET PO PRN (10:55)
== END 2021-05-23 12:21 | DRG 644 ==
LOC: EDBD 15:12 → M ED 15:12 → M ED INP 16:23 → ENRESERV 05-20 11:30 → M MSPAV 05-20 13:09
PROVIDERS: ADMIT Internal Medicine; ATTEND Internal Medicine
DX: E21.0 Primary hyperparathyroidism (principal); N17.9 Acute kidney failure, unspecified; E87.0 Hyperosmolality and hypernatremia; D62 Acute posthemorrhagic anemia; K92.2 Gastrointestinal hemorrhage, unspecified; Z68.1 Body mass index [BMI] 19.9 or less, adult; I12.9 Hypertensive chronic kidney disease with stage 1 through stage 4 chronic kidney disease, or unspecified chronic kidney disease; G30.9 Alzheimer's disease, unspecified; F02.80 Dementia in other diseases classified elsewhere, unspecified severity, without behavioral disturbance, psychotic disturbance, mood disturbance, and anxiety; D53.9 Nutritional anemia, unspecified; Z79.899 Other long term (current) drug therapy; Z20.822 Contact with and (suspected) exposure to COVID-19; Z90.49 Acquired absence of other specified parts of digestive tract; Z98.1 Arthrodesis status; N18.30 Chronic kidney disease, stage 3 unspecified; E87.6 Hypokalemia; E86.0 Dehydration; Z66 Do not resuscitate

== ENCOUNTER → 2021-05-19 | Outpatient (REF) | payer MEDICARE, MEDICAID ==
[2021-05-19 13:33] LABS: HEMATOCRIT 26.5 % (36.0-47.0); HEMOGLOBIN 8.8 g/dl (12.0-15.5); MEAN CORPUSCULAR HEMOGLOBIN 33.6 pg (27.0-33.0); MEAN CORPUSCULAR HGB CONC 33.2 g/dl (32.0-36.5); MEAN CORPUSCULAR VOLUME 101.1 fl (80.0-96.0); PLATELET COUNT, AUTOMATED 147 10^3/uL (150-450); RED BLOOD COUNT 2.62 10^6/uL (4.00-5.40); WHITE BLOOD COUNT 3.9 10^3/uL (4.0-10.0)
[2021-05-19 14:14] LABS: CREATININE FOR GFR 2.61 MG/DL (0.55-1.30); GLOMERULAR FILTRATION RATE 18.5 (>32); POTASSIUM SERUM 4.5 MEQ/L (3.5-5.1)
[2021-05-19 14:17] LABS: CALCIUM LEVEL 15.2 MG/DL (8.8-10.2)
== END ==
LOC: SKLAB3 15:05
PROVIDERS: ATTEND Internal Medicine
DX: E86.0 Dehydration (principal); D64.9 Anemia, unspecified; N18.9 Chronic kidney disease, unspecified